=== PATIENT | female | born 1970 | race African-American/Black ===

== ENCOUNTER 2017-07-11 05:58 | Emergency (ER) | payer MEDICAID, OTHER ==
[~2017-07-11] VITALS: Ht 170.2 cm; Wt 69.9 kg
[~2017-07-11 05:58] MED LIST: ATIVAN1 MG ORAL; CIPROFLOXACIN500 M2 ORAL; LAMICTAL150 MG PO; LIBRIUM25 MG ORAL; LISINOPRIL20 MG ORAL; NORCO 5-325 TA1 EACH ORAL; NORVASC10 MG PO; OMEPRAZOLE40 M1 ORAL; ONDANSETRON ODT4 MG ORAL; PAXIL20 MG ORAL; RISPERDAL0.5 MG PO; ZOFRAN4 MG ORAL
[2017-07-11 06:00] VITALS: BP 115/72
[2017-07-11 06:27] LABS: BASOPHILS % (AUTO) 2.4 % (0.0-2.0); EOSINOPHILS % (AUTO) 3.3 % (0.0-3.0); LYMPHOCYTES % (AUTO) 20.3 % (20.0-45.0); MEAN CORPUSCULAR HEMOGLOBIN 31.9 PG (27.0-31.0); MEAN CORPUSCULAR HGB CONC 32.7 G/DL (32.0-36.0); MEAN CORPUSCULAR VOLUME 97 FL (80-99); MEAN PLATELET VOLUME 4.9 FL (6.5-10.1); MONOCYTES % (AUTO) 12.8 % (1.0-10.0); NEUTROPHILS % (AUTO) 61.1 % (45.0-75.0); PLATELET COUNT 513 K/UL (150-450); RED BLOOD COUNT 3.33 M/UL (4.20-5.40); RED CELL DISTRIBUTION WIDTH 16.9 % (11.6-14.8); WHITE BLOOD COUNT 7.6 K/UL (4.8-10.8)
[2017-07-11 06:45] LABS: ALANINE AMINOTRANSFERASE 13 U/L (3-33); ANION GAP 20 (5-15); ASPARTATE AMINO TRANSFERASE 38 U/L (5-40); CARBON DIOXIDE 22 mEQ/L (20-30); CHLORIDE 93 mEQ/L (98-107); GLOMERULAR FILTRATION RATE > 60 mL/min (>60); HEMOLYSIS 2; POTASSIUM 2.9 mEQ/L (3.4-4.9); SODIUM 135 mEQ/L (135-145)
[2017-07-11] MEDS ORDERED: Morphine Sulfate 4mg/ml Inj IVP ONE ×2 (06:45→07:45)
[2017-07-11 06:47] LABS: TROPONIN I < 0.30 ng/mL (<=0.30)
[2017-07-11 07:09] LABS: ALCOHOL 49 mg/dL; LIPASE 309 U/L (< 60)
[2017-07-11] MEDS ORDERED: Famotidine 20 MG/ 2ML VIAL IVP ONE (07:15)
[2017-07-11 08:00] VITALS: BP 119/75
--- NOTE | 2017-07-11 08:30 | Diagnostic Imaging Report ---
Clinical Indication: Abdominal pain, nausea vomiting x3 days, history of pancreatitis Technique: No oral contrast utilized, per emergency room physician request IV administration nonionic contrast. Venous phase spiral acquisition obtained through the abdomen and pelvis. Multiplanar reconstructions were generated. Total dose length product 841 mGycm. CTDIvol(s) 16 mGy. Dose reduction achieved using automated exposure control Comparison: 01/02/[address] Findings: There is mild indistinctness of the pancreatic margins and infiltration of the peripancreatic fat. Small amount of ill-defined peripancreatic fluid is seen inferior to the pancreatic tail. There is again demonstrated mild generalized atrophy of the pancreas. Of the findings are new since the previous study. No gallstones are identified. No biliary ductal dilatation. No pancreatic mass. The pancreatic substance appears to opacify normally. Some free fluid is seen adjacent to the dome of the spleen. The liver is mildly hypoattenuating, consistent with fatty change. Multiple subcentimeter low-attenuation lesions are again demonstrated. Some but not all of these are equivocally evident on a prior [address] scan. A few are equivocally evident on the more recent noncontrast study, including the largest in segment 5. The spleen, adrenals left kidney are unremarkable. The right kidney demonstrates a subcentimeter low-attenuation lower pole lesion, also evident previously, most likely benign simple cortical cyst. No pelvic mass or adenopathy. No retroperitoneal or mesenteric mass or adenopathy. Lack of enteric contrast was assessment of the GI tract. The appendix is normal. There are a few colonic diverticula. No evidence of acute diverticulitis. No small bowel distention. There is evidence of prior gastric bypass surgery again demonstrated The included lung bases are clear. The bones are unremarkable. Impression: Mild haziness of the pancreatic margins, infiltration of the peripancreatic fat, and a very small amount of free intraperitoneal fluid. Findings are consistent with acute nonnecrotizing uncomplicated pancreatitis Multiple subcentimeter low-attenuation liver lesions. Too small to characterize, most likely benign simple cysts or bile hamartomas. However, some of these may be new since previous imaging, and further imaging followup with ultrasound or MRI is warranted to establish if cystic or solid. Colonic diverticulosis. No evidence of diverticulitis Fatty liver Evidence of prior gastric bypass surgery Right lower pole renal lesion, too small to characterize, most likely benign simple cyst. No further followup necessary The CT scanner at [facility] is accredited by the [employer] and the scans are performed using protocols designed to limit radiation exposure to as low as reasonably achievable to attain images of sufficient resolution adequate for diagnostic evaluation.
[2017-07-11] MEDS ORDERED: DiphenhydrAMINE 50mg/ml Inj ONE (09:08)
[2017-07-11] MEDS ORDERED: HYDROmorphone 1mg/ml Carpuject ONE (09:08)
[2017-07-11] MEDS ORDERED: HYDROmorphone 1 MG, DiphenhydrAMINE 25 MG in NS 55 ML IV ONE (09:15)
--- NOTE | 2017-07-11 09:33 | Emergency Room Report ---
History of Present Illness General Chief Complaint: Chest Pain Source: Patient, EMS Present Illness HPI 47-year-old female presents to ED for evaluation. Per EMS patient is complaining of chest pain which started this morning. Patient states that she' s been having epigastric pain for the last 3 days with vomiting. Patient has history of pancreatitis admits to alcohol use. Pain is an 9/10, burning, radiating through her chest. Denies shortness of breath. Denies fevers or chills. No aggravating factors. Denies any other associated symptoms Allergies: Coded Allergies: ASPIRIN (Verified Adverse Reaction, Mild, ULCERS, 08/16/11) NAPROXEN (Verified Adverse Reaction, Mild, ULCERS, 05/19/12) NSAIDS (NON-STEROIDAL ANTI-INFLAMMA (Verified Adverse Reaction, Mild, ULCERS, 08/16/11) Patient History Past Medical History: HTN Past Surgical History: none Pertinent Family History: none Social History: Denies: smoking, alcohol use, drug use Last Menstrual Period: MAY 08 Now: No Immunizations: UTD Reviewed Nursing Documentation: PMH: Agreed, PSxH: Agreed Nursing Documentation-PMH Hx Cardiac Problems: No - gastric bypass, alcoholism, pancreatitis, fatty liver Hx Hypertension: Yes Review of Systems All Other Systems: negative except mentioned in HPI Physical Exam Vital Signs Date Time Temp Pulse Resp B/P (MAP) Pulse Ox O2 Delivery O2 Flow Rate FiO2 07/11/17 05:49 98.8 89 18 142/72 99 Room Air Sp02 EP Interpretation: reviewed, normal General Appearance: no apparent distress, alert, GCS 15, non-toxic Head: normocephalic, atraumatic Eyes: bilateral eye normal inspection, bilateral eye PERRL ENT: hearing grossly normal, normal pharynx, no angioedema, normal voice Neck: full range of motion, supple/symm/no masses Respiratory: chest non-tender, lungs clear, normal breath sounds, speaking full sentences Cardiovascular #1: regular rate, rhythm, no edema Cardiovascular #2: 2+ carotid (R), 2+ carotid (L), 2+ radial (R), 2+ radial (L) , 2+ dorsalis pedis (R), 2+ dorsalis pedis (L) Gastrointestinal: normal bowel sounds, soft, non-distended, no guarding, no rebound, tenderness - epigastric Rectal: deferred Genitourinary: normal inspection, no CVA tenderness Musculoskeletal: back normal, gait/station normal, normal range of motion, non- tender Neurologic: alert, oriented x3, responsive, motor strength/tone normal, sensory intact, speech normal Psychiatric: judgement/insight normal, memory normal, mood/affect normal, no suicidal/homicidal ideation Reflexes: 3+ bicep (R), 3+ bicep (L), 3+ tricep (R), 3+ tricep (L), 3+ knee (R) , 3+ knee (L) Skin: normal color, no rash, warm/dry, well hydrated Lymphatic: no adenopathy Medical Decision Making Diagnostic Impression: Primary Impression: Acute pancreatitis Qualified Codes: K85.20 - Alcohol induced acute pancreatitis without necrosis or infection Additional Impressions: Alcohol intoxication Qualified Codes: F10.920 - Alcohol use, unspecified with intoxication, uncomplicated Hypokalemia ER Course Hospital Course 47-year-old female presents to ED with abdominal pain with ovmiting Differential diagnoses include: BPH, cystitis, pyelonephritis, kidney stone Clinical course 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 After initial history and physical I ordered labs, IV fluids, UA, pain medication and CT scan Labs - no leukocytosis, Hb/Hct stable. potassium low. Lipase > 300, AST/ALT elevated. trop negative. ETOH +. utox + BZs CT abdomen and pelvis - pancreatitis EKG - NSR, no acute changes interpreted by me potassium repleted. Patient continues to have pain. Continues vomiting despite medication. Patient will require admission because of insurance patient will be transferred I feel this is a highly complex case requiring extensive working including EKG/ Rhythm strip, Xray/CT/US, Blood/urine lab work, repeat exams while in ED, and administration of strong opiates/narcotics for pain control, admission to hospital or close patient follow up. Diagnosis - acute pancreatitis, alcohol intoxication, hypolaemia Transferred in serious condition Labs Test 07/11/17 06:20 White Blood Count 7.6 K/UL (4.8-10.8) Red Blood Count 3.33 M/UL (4.20-5.40) Hemoglobin 10.6 G/DL (12.0-16.0) Hematocrit 32.5 % (37.0-47.0) Mean Corpuscular Volume 97 FL (80-99) Mean Corpuscular Hemoglobin 31.9 PG (27.0-31.0) Mean Corpuscular Hemoglobin Concent 32.7 G/DL (32.0-36.0) Red Cell Distribution Width 16.9 % (11.6-14.8) Platelet Count 513 K/UL (150-450) Mean Platelet Volume 4.9 FL (6.5-10.1) Neutrophils (%) (Auto) 61.1 % (45.0-75.0) Lymphocytes (%) (Auto) 20.3 % (20.0-45.0) Monocytes (%) (Auto) 12.8 % (1.0-10.0) Eosinophils (%) (Auto) 3.3 % (0.0-3.0) Basophils (%) (Auto) 2.4 % (0.0-2.0) Sodium Level 135 mEQ/L (135-145) Potassium Level 2.9 mEQ/L (3.4-4.9) Chloride Level 93 mEQ/L (98-107) Carbon Dioxide Level 22 mEQ/L (20-30) Anion Gap 20 (5-15) Blood Urea Nitrogen 5 mg/dL (7-23) Creatinine 1.0 mg/dL (0.5-0.9) Estimat Glomerular Filtration Rate > 60 mL/min (>60) Glucose Level 108 mg/dL (74-106) Calcium Level 9.0 mg/dL (8.6-10.2) Total Bilirubin 0.5 mg/dL (0.0-1.2) Aspartate Amino Transf (AST/SGOT) 38 U/L (5-40) Alanine Aminotransferase (ALT/SGPT) 13 U/L (3-33) Alkaline Phosphatase 89 U/L (35-104) Total Creatine Kinase 115 U/L (26-140) Creatine Kinase MB 2.0 ng/mL (< 3.8) Creatine Kinase MB Relative Index 1.7 Troponin I < 0.30 ng/mL (<=0.30) Total Protein 7.0 g/dL (6.6-8.7) Albumin 3.6 g/dL (3.5-5.2) Globulin 3.4 g/dL Albumin/Globulin Ratio 1.0 (1.0-2.7) Lipase 309 U/L (< 60) Urine Opiates Screen Negative (NEGATIVE) Urine Barbiturates Screen Negative (NEGATIVE) Phencyclidine (PCP) Screen Negative (NEGATIVE) Urine Amphetamines Screen Negative (NEGATIVE) Urine Benzodiazepines Screen Positive (NEGATIVE) Urine Cocaine Screen Negative (NEGATIVE) Urine Marijuana (THC) Screen Negative (NEGATIVE) Serum Alcohol 49 mg/dL EKG Diagnostic Results Rate: normal Rhythm: NSR ST Segments: no acute changes ASA given to the pt in ED: No Rhythm Strip Diag. Results EP Interpretation: yes Rhythm: NSR, no PVC's, no ectopy CT/MRI/US Diagnostic Results CT/MRI/US Diagnostic Results : Imaging Test Ordered: CT A/P Impression acute pancreatitis Last Vital Signs Date Time Temp Pulse Resp B/P (MAP) Pulse Ox O2 Delivery O2 Flow Rate FiO2 07/11/17 08:22 98.2 07/11/17 06:00 89 14 Room Air 07/11/17 06:00 115/72 99 Status: improved Disposition: XFER [facility] Condition: Serious Referrals: [facility] (PCP) CRISTINA JOVEL M.D. Jul 11, 2017 09:33
[2017-07-11] MEDS ORDERED: Dicyclomine HCl 10mg/5ml oral soln ORAL ONE (09:45)
[2017-07-11] MEDS ORDERED: Lidocaine 2% Visc 15ml soln ORAL ONE (09:45)
[2017-07-11] MEDS ORDERED: Mylanta II UD 30ml ORAL ONE (09:45)
[2017-07-11 10:14] VITALS: BP 126/76
[2017-07-11 11:10] VITALS: BP 126/76
--- NOTE | 2017-07-11 12:38 | Diagnostic Imaging Report ---
Indication: PAIN Technique: One view of the chest Comparison: 02/21/2015 Findings: Lungs and pleural spaces are clear. Heart size is normal. No significant change Impression: No acute process
== END 2017-07-11 11:10 | disposition short-term general hospital (02) ==
LOC: EDBD 05:58 → EMR 06:30
DX: K85.20 Alcohol induced acute pancreatitis without necrosis or infection (principal); F10.920 Alcohol use, unspecified with intoxication, uncomplicated; E87.6 Hypokalemia; I10 Essential (primary) hypertension; Z98.84 Bariatric surgery status; Z88.6 Allergy status to analgesic agent
CPT/HCPCS: 36415; 71010; 74177; 80053; 80300; 80329; 82550; 82553; 83690; 84484; 85025; 93005; 96374; 96375; 99285; J1170; J1200; J2270; J2405; Q9967; S0028; J8499

== ENCOUNTER 2018-10-15 10:33 | Emergency (ER) | payer MEDICAID ==
[~2018-10-15] VITALS: Ht 167.6 cm; Wt 63.5 kg
[2018-10-15 10:40] VITALS: BP 172/99
--- NOTE | 2018-10-15 11:03 | Emergency Room Report ---
History of Present Illness General Chief Complaint: Alcohol Intoxication Source: Patient Present Illness HPI Patient is a 48-year-old female who presented after increased abdominal discomfort and vomiting. Patient reports having recent heavy alcohol use. She reports having prior history of chronic pain. Patient states that she been taking Percocet for pain and had recently taken 5 of those as well as a recent epidural. Reports an prior history of ulcer disease but denies any bleeding. She states that she is an alcoholic.The patient reports having multiple episodes of vomiting and generalized body discomfort. Allergies: Coded Allergies: ASPIRIN (Verified Adverse Reaction, Mild, ULCERS, 08/16/11) NAPROXEN (Verified Adverse Reaction, Mild, ULCERS, 05/19/12) NSAIDS (NON-STEROIDAL ANTI-INFLAMMA (Verified Adverse Reaction, Mild, ULCERS, 08/16/11) Patient History Past Medical History: see triage record Reviewed Nursing Documentation: PMH: Agreed; PSxH: Agreed Nursing Documentation-PM Past Medical History: No History, Except For Hx Cardiac Problems: No - gastric bypass, alcoholism, pancreatitis, fatty liver Hx Hypertension: Yes Review of Systems All Other Systems: negative except mentioned in HPI Physical Exam Vital Signs Date Time Temp Pulse Resp B/P (MAP) Pulse Ox O2 Delivery O2 Flow Rate FiO2 10/15/18 10:40 73 15 Room Air 10/15/18 10:40 98.9 172/99 100 Sp02 EP Interpretation: reviewed, normal General Appearance: normal inspection, well appearing, no apparent distress, alert, GCS 15, Chronically Ill Head: atraumatic ENT: normal ENT inspection, hearing grossly normal, normal voice Neck: normal inspection, full range of motion, supple, no bony tend Respiratory: normal inspection, lungs clear, normal breath sounds, no respiratory distress, no retraction, no wheezing Cardiovascular #1: regular rate, rhythm, no edema Gastrointestinal: normal inspection, normal bowel sounds, non tender, soft, no guarding, no hernia Genitourinary: no CVA tenderness Musculoskeletal: normal inspection, back normal, normal range of motion Neurologic: normal inspection, alert, oriented x3, responsive, attending psychiatrist III-XII nml as tested, speech normal Psychiatric: normal inspection, judgement/insight normal, mood/affect normal Skin: normal inspection, normal color, no rash Medical Decision Making Diagnostic Impression: Primary Impression: Alcohol intoxication ER Course Patient presented for abdominal pain. Differential diagnoses included ischemic bowel, appendicitis, perforated viscus, abdominal aortic aneurysm, inferior myocardial infarction, viral gastroenteritis. Because of complexity of patient' s case laboratory testing and imaging studies were ordered. The patient's laboratory testing was notable for markedly elevated lactic acid level. Patient reports having recently been drinking multiple 40 ounce beers. The patient states that she has prior history of ulcer disease. The patient was given IV fluids as well as IV the acid blockers and antiemetics. The patient was noted to have elevated lactic acid level. The patient stated she felt better and wanted to leave. The patient was advised risk benefits alternatives of leaving AGAINST MEDICAL ADVICE and he indicated understanding and all questions are answered patient still continued want to leave and signed AGAINST MEDICAL ADVICE. Despite risks including but not limited to disability and worsening of current lifestyle. Labs Test 10/15/18 11:16 10/15/18 11:53 10/15/18 12:03 White Blood Count 7.8 K/UL (4.8-10.8) Red Blood Count 5.10 M/UL (4.20-5.40) Hemoglobin 15.7 G/DL (12.0-16.0) Hematocrit 46.0 % (37.0-47.0) Mean Corpuscular Volume 90 FL (80-99) Mean Corpuscular Hemoglobin 30.8 PG (27.0-31.0) Mean Corpuscular Hemoglobin Concent 34.2 G/DL (32.0-36.0) Red Cell Distribution Width 12.8 % (11.6-14.8) Platelet Count 552 K/UL (150-450) Mean Platelet Volume 5.3 FL (6.5-10.1) Neutrophils (%) (Auto) 81.5 % (45.0-75.0) Lymphocytes (%) (Auto) 14.8 % (20.0-45.0) Monocytes (%) (Auto) 3.2 % (1.0-10.0) Eosinophils (%) (Auto) 0.0 % (0.0-3.0) Basophils (%) (Auto) 0.5 % (0.0-2.0) Sodium Level 132 MMOL/L (136-145) Potassium Level 3.2 MMOL/L (3.5-5.1) Chloride Level 92 MMOL/L (98-107) Carbon Dioxide Level 24 MMOL/L (21-32) Anion Gap 16 mmol/L (5-15) Blood Urea Nitrogen 12 mg/dL (7-18) Creatinine 0.9 MG/DL (0.55-1.30) Estimat Glomerular Filtration Rate > 60 mL/min (>60) Glucose Level 106 MG/DL (74-106) Calcium Level 9.4 MG/DL (8.5-10.1) Total Bilirubin 1.2 MG/DL (0.2-1.0) Direct Bilirubin 0.3 MG/DL (0.0-0.3) Aspartate Amino Transf (AST/SGOT) 99 U/L (15-37) Alanine Aminotransferase (ALT/SGPT) 52 U/L (12-78) Alkaline Phosphatase 134 U/L (46-116) Troponin I 0.000 ng/mL (0.000-0.056) Total Protein 9.9 G/DL (6.4-8.2) Albumin 4.3 G/DL (3.4-5.0) Globulin 5.6 g/dL Albumin/Globulin Ratio 0.8 (1.0-2.7) Lipase 138 U/L (73-393) Urine Color Pale yellow Urine Appearance Clear Urine pH 6.5 (4.5-8.0) Urine Specific [place] 1.005 (1.005-1.035) Urine Protein 1+ (NEGATIVE) Urine Glucose (UA) Negative (NEGATIVE) Urine Ketones Negative (NEGATIVE) Urine Blood Negative (NEGATIVE) Urine Nitrite Negative (NEGATIVE) Urine Bilirubin Negative (NEGATIVE) Urine Urobilinogen Normal MG/DL (0.0-1.0) Urine Leukocyte Esterase Negative (NEGATIVE) Urine RBC 0 /HPF (0 - 2) Urine WBC 0-2 /HPF (0 - 2) Urine Squamous Epithelial Cells Few /LPF (NONE/OCC) Urine Bacteria Few /HPF (NONE) Lactic Acid Level 6.80 mmol/L (0.4-2.0) Last Vital Signs Date Time Temp Pulse Resp B/P (MAP) Pulse Ox O2 Delivery O2 Flow Rate FiO2 10/15/18 10:42 98.1 78 18 164/78 98 Room Air Status: improved Disposition: AGAINST MEDICAL ADVICE Condition: Serious Scripts Ondansetron* (ZOFRAN*) 4 Mg Tablet 4 MG ORAL Q6H PRN for Nausea & Vomiting, #20 TAB Prov: Raffi Falk MD 10/15/18 Raffi Falk MD Oct 15, 2018 11:03
[2018-10-15 11:32] LABS: BASOPHILS % (AUTO) 0.5 % (0.0-2.0); HEMOGLOBIN 15.7 G/DL (12.0-16.0); LYMPHOCYTES % (AUTO) 14.8 % (20.0-45.0); MEAN CORPUSCULAR VOLUME 90 FL (80-99); MONOCYTES % (AUTO) 3.2 % (1.0-10.0); NEUTROPHILS % (AUTO) 81.5 % (45.0-75.0); PLATELET COUNT 552 K/UL (150-450); RED CELL DISTRIBUTION WIDTH 12.8 % (11.6-14.8); WHITE BLOOD COUNT 7.8 K/UL (4.8-10.8)
[2018-10-15 11:52] LABS: ANION GAP 16 mmol/L (5-15); BLOOD UREA NITROGEN 12 mg/dL (7-18); CALCIUM 9.4 MG/DL (8.5-10.1); CARBON DIOXIDE 24 MMOL/L (21-32); CHLORIDE 92 MMOL/L (98-107); CREATININE 0.9 MG/DL (0.55-1.30); POTASSIUM 3.2 MMOL/L (3.5-5.1); SODIUM 132 MMOL/L (136-145)
[2018-10-15 12:02] LABS: APPEARANCE,URINE CLEAR; BILIRUBIN, URINE NEGATIVE (NEGATIVE); COLOR,URINE PALE YELLOW; GLUCOSE, URINE (UA) NEGATIVE (NEGATIVE); KETONES,URINE NEGATIVE (NEGATIVE); LEUKOCYTE ESTERASE ,URINE NEGATIVE (NEGATIVE); NITRITE,URINE NEGATIVE (NEGATIVE); PH,URINE 6.5 (4.5-8.0); PROTEIN,URINE 1+ (NEGATIVE); UROBILINOGEN,URINE NORMAL MG/DL (0.0-1.0)
[2018-10-15 12:03] LABS: ALANINE AMINOTRANSFERASE 52 U/L (12-78); ALBUMIN 4.3 G/DL (3.4-5.0); ALBUMIN/GLOBULIN RATIO 0.8 (1.0-2.7); ALKALINE PHOSPHATASE 134 U/L (46-116); ASPARTATE AMINO TRANSFERASE 99 U/L (15-37); BILIRUBIN,TOTAL 1.2 MG/DL (0.2-1.0)
[2018-10-15 12:11] LABS: BILIRUBIN,DIRECT 0.3 MG/DL (0.0-0.3)
[2018-10-15] MEDS ORDERED: Metoclopramide 10mg/2ml Inj IVP ONE (12:15)
[2018-10-15 12:30] VITALS: BP 162/90
[2018-10-15] MEDS ORDERED: ZOFRAN4 M3 ORAL (13:21)
[2018-10-15 14:10] VITALS: BP 162/90
== END 2018-10-15 14:10 | disposition home or self-care (01) ==
LOC: EDBD 10:33 → EMR 11:52
DX: F10.129 Alcohol abuse with intoxication, unspecified (principal); Z88.6 Allergy status to analgesic agent; I10 Essential (primary) hypertension; Z98.84 Bariatric surgery status
CPT/HCPCS: 36415; 80053; 81001; 82248; 83605; 83690; 84484; 85025; 96361; 96374; 96375; 99284; J2405; J2765

== ENCOUNTER 2020-02-13 07:14 | Inpatient (IN) | payer MEDICAID ==
[~2020-02-13] VITALS: Ht 167.6 cm; Wt 81.6 kg
[~2020-02-13 07:14] MED LIST changes: +ZOFRAN4 M3 ORAL
--- NOTE | 2020-02-13 07:15 | NUR ---
ED Nurse Note: Pt was BIBA from home d/t LT lower abdominal pain with 10/10 pain scale started today at 0300. Pt is AOx4, NKA, noted with consistent restlessness and screaming of pain. Per pt, she has hx of pancreatitis; fatty liver and ulcers. 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 Placed on bed and gown; hooked to monitor technician. IV establsihed by second RN; specimen collected, hydration started on IV line, patent and infusing well. Latest BP: 125/87. Meds given. Safety assured; will continue to monitor.
[2020-02-13 07:16] VITALS: BP 87/62
--- NOTE | 2020-02-13 07:25 | Emergency Room Report ---
History of Present Illness General Chief Complaint: Abdominal Pain Source: Patient Present Illness HPI Patient is a 49-year-old female who presents after increased left-sided abdominal pain. Reports having history of gastric bypass as well as alcohol abuse. She states she quit drinking 2 days ago. Reports having increased dark stools. Previous history of ulcer disease. She states that she had no vomiting. Reports having increased left-sided epigastric pain. Reports having recent fever. Denies any cough. Denies any shortness of breath. Reports having previously been diagnosed with fatty liver but had not known varices. Previous endoscopy did show ulcer per report. Allergies: Coded Allergies: IBUPROFEN (Unverified Allergy, Unknown, 02/13/20) ASPIRIN (Verified Adverse Reaction, Mild, ULCERS, 08/16/11) NAPROXEN (Verified Adverse Reaction, Mild, ULCERS, 05/19/12) NSAIDS (NON-STEROIDAL ANTI-INFLAMMA (Verified Adverse Reaction, Mild, ULCERS, 08/16/11) COVID-19 Screening Contact w/high risk pt: No Recent Travel to affected area: No Experienced COVID-19 symptoms?: Yes COVID-19 symptoms experienced: Fever (T>100.4F or >38C) Patient History Past Medical History: see triage record Last Menstrual Period: n/a Reviewed Nursing Documentation: PMH: Agreed; PSxH: Agreed Nursing Documentation-PMH Past Medical History: No History, Except For Hx Cardiac Problems: No - gastric bypass, alcoholism, pancreatitis, fatty liver Hx Hypertension: Yes Review of Systems All Other Systems: negative except mentioned in HPI Physical Exam Vital Signs Date Time Temp Pulse Resp B/P (MAP) Pulse Ox O2 Delivery O2 Flow Rate FiO2 02/13/20 07:09 98.6 130 18 87/62 (70) 100 Room Air Sp02 EP Interpretation: reviewed, normal General Appearance: normal inspection, alert, GCS 15, mild distress, Chronically Ill Head: atraumatic ENT: normal ENT inspection, hearing grossly normal, normal voice Neck: normal inspection, full range of motion, supple, no bony tend Respiratory: normal inspection, lungs clear, normal breath sounds, no respiratory distress, no retraction, no wheezing Cardiovascular #1: regular rate, rhythm, no edema Gastrointestinal: normal inspection, normal bowel sounds, non tender, soft, no guarding, no hernia Genitourinary: no CVA tenderness Musculoskeletal: normal inspection, back normal, normal range of motion Neurologic: alert, motor strength/tone normal, preschool assistant III-XII nml as tested, oriented x3, responsive, speech normal, normal inspection Psychiatric: normal inspection, judgement/insight normal, mood/affect normal Skin: no rash Medical Decision Making Diagnostic Impression: Primary Impression: Abdominal pain Additional Impression: Splenic rupture ER Course Patient presented for abdominal pain. Differential diagnoses included ischemic bowel, appendicitis, perforated viscus, abdominal aortic aneurysm, inferior myocardial infarction, viral gastroenteritis among others.Because patient's complexity imaging studies, and laboratory testing ordered. Laboratory testing showed . Electrolytes were unremarkable. Liver function tests are noted to be markedly abnormal with markedly elevated AST and ALT. Lipase was normal White blood count was minimally elevated. Patient was noted to be lymphopenic. CT of the abdomen pelvis showed: Heterogeneous spleen with some surrounding hemoperitoneum consistent with possible splenic rupture. Some groundglass opacities were noted. Dr. Cross was contacted for surgical consult. Patient be admitted to hospital for further evaluation and treatment of splenic rupture. Patient was discussed with from [facility] case #[id number] Labs Test 02/13/20 07:10 White Blood Count 12.2 K/UL (4.8-10.8) Red Blood Count 3.54 M/UL (4.20-5.40) Hemoglobin 11.5 G/DL (12.0-16.0) Hematocrit 33.6 % (37.0-47.0) Mean Corpuscular Volume 95 FL (80-99) Mean Corpuscular Hemoglobin 32.4 PG (27.0-31.0) Mean Corpuscular Hemoglobin Concent 34.2 G/DL (32.0-36.0) Red Cell Distribution Width 13.1 % (11.6-14.8) Platelet Count 358 K/UL (150-450) Mean Platelet Volume 5.3 FL (6.5-10.1) Neutrophils (%) (Auto) % (45.0-75.0) Lymphocytes (%) (Auto) % (20.0-45.0) Monocytes (%) (Auto) % (1.0-10.0) Eosinophils (%) (Auto) % (0.0-3.0) Basophils (%) (Auto) % (0.0-2.0) Differential Total Cells Counted 100 Neutrophils % (Manual) 86 % (45-75) Lymphocytes % (Manual) 12 % (20-45) Monocytes % (Manual) 2 % (1-10) Eosinophils % (Manual) 0 % (0-3) Basophils % (Manual) 0 % (0-2) Band Neutrophils 0 % (0-8) Platelet Estimate Adequate Platelet Morphology Normal Red Blood Cell Morphology Normal Prothrombin Time 10.0 SEC (9.30-11.50) Prothromb Time International Ratio 0.9 (0.9-1.1) Activated Partial Thromboplast Time 32 SEC (23-33) Sodium Level 131 MMOL/L (136-145) Potassium Level 4.0 MMOL/L (3.5-5.1) Chloride Level 94 MMOL/L (98-107) Carbon Dioxide Level 23 MMOL/L (21-32) Anion Gap 15 mmol/L (5-15) Blood Urea Nitrogen 15 mg/dL (7-18) Creatinine 1.6 MG/DL (0.55-1.30) Estimat Glomerular Filtration Rate 41.3 mL/min (>60) Glucose Level 240 MG/DL (74-106) Calcium Level 9.2 MG/DL (8.5-10.1) Total Bilirubin 1.9 MG/DL (0.2-1.0) Direct Bilirubin 0.8 MG/DL (0.0-0.3) Aspartate Amino Transf (AST/SGOT) 124 U/L (15-37) Alanine Aminotransferase (ALT/SGPT) 117 U/L (12-78) Alkaline Phosphatase 158 U/L (46-116) Troponin I 0.000 ng/mL (0.000-0.056) Total Protein 7.8 G/DL (6.4-8.2) Albumin 3.5 G/DL (3.4-5.0) Globulin 4.3 g/dL Albumin/Globulin Ratio 0.8 (1.0-2.7) Lipase 93 U/L (73-393) Human Chorionic Gonadotropin, Quant 1 mIU/mL (1-6) Serum Alcohol < 3 mg/dL EKG Diagnostic Results Rate: normal Rhythm: NSR ST Segments: no acute changes Last Vital Signs Date Time Temp Pulse Resp B/P (MAP) Pulse Ox O2 Delivery O2 Flow Rate FiO2 02/13/20 07:09 98.6 130 18 87/62 (70) 100 Room Air Status: unchanged Disposition: ADMITTED INPATIENT Condition: Serious Raffi Falk MD Feb 13, 2020 07:25
[2020-02-13] MEDS ORDERED: Morphine Sulfate 4mg/ml Inj (IV USE ONLY) IVP ONE ×3 (07:30→13:00)
[2020-02-13] MEDS ORDERED: Pantoprazole Inj IV ONE (07:30)
[2020-02-13] MEDS ORDERED: LORazepam Inj 2mg/ml 1ml IV ONE (07:30)
[2020-02-13] MEDS ORDERED: Omnipaque-300 100ml vial INJ PRN (07:30)
[2020-02-13 07:37] LABS: HEMATOCRIT 33.6 % (37.0-47.0); HEMOGLOBIN 11.5 G/DL (12.0-16.0); MEAN CORPUSCULAR VOLUME 95 FL (80-99); PLATELET COUNT 358 K/UL (150-450); RED BLOOD COUNT 3.54 M/UL (4.20-5.40); RED CELL DISTRIBUTION WIDTH 13.1 % (11.6-14.8); WHITE BLOOD COUNT 12.2 K/UL (4.8-10.8)
[2020-02-13 07:44] LABS: INR 0.9 (0.9-1.1)
[2020-02-13 08:06] LABS: ANION GAP 15 mmol/L (5-15); BLOOD UREA NITROGEN 15 mg/dL (7-18); CALCIUM 9.2 MG/DL (8.5-10.1); CARBON DIOXIDE 23 MMOL/L (21-32); CHLORIDE 94 MMOL/L (98-107); CREATININE 1.6 MG/DL (0.55-1.30); SODIUM 131 MMOL/L (136-145)
--- NOTE | 2020-02-13 08:13 | NUR ---
ED Nurse Note: Pt on bed, still verbalizes pain; unable to collect urine specimen at this time.
[2020-02-13 08:16] LABS: ALANINE AMINOTRANSFERASE 117 U/L (12-78); ALBUMIN 3.5 G/DL (3.4-5.0); ALBUMIN/GLOBULIN RATIO 0.8 (1.0-2.7); ALKALINE PHOSPHATASE 158 U/L (46-116); ASPARTATE AMINO TRANSFERASE 124 U/L (15-37); BILIRUBIN,TOTAL 1.9 MG/DL (0.2-1.0)
[2020-02-13 08:22] LABS: BILIRUBIN,DIRECT 0.8 MG/DL (0.0-0.3)
--- NOTE | 2020-02-13 08:35 | NUR ---
ED Nurse Note: pt went to ct via kapil accompanied by tech
--- NOTE | 2020-02-13 08:52 | NUR ---
ED Nurse Note: pt returned from ct, on stable condition; nad.
--- NOTE | 2020-02-13 09:28 | Diagnostic Imaging Report ---
Clinical Indication: Increased left-sided abdominal pain, history of gastric bypass Technique: No oral contrast utilized, per emergency room physician request IV administration nonionic contrast. Venous phase spiral acquisition obtained through the abdomen and pelvis. Multiplanar reconstructions were generated. Total dose length product 425 mGycm. CTDIvol(s) 7.8 mGy. Dose reduction achieved using automated exposure control Comparison: 07/11/2017 Findings: The spleen is markedly abnormal. The normally enhancing spleen demonstrates distortion of the anatomy and is surrounded by a large area of mixed attenuation which measures approximately 9 x 7 x 9.5 cm. High attenuation fluid is also seen within the left paracolic gutter as well as is under the left hemidiaphragm and adjacent to the left hepatic lobe. A small sliver of high attenuation fluid is also seen over the dome of the right hepatic lobe and there is a moderate amount of the same in the pelvis.. There is some infiltration of the left upper quadrant retroperitoneal and omental fat. The enhancing portion of the spleen for the most part enhances normally, although there is some heterogeneity to the enhancement of the lower pole. This is a new finding. Previously the spleen was normal in size, attenuation, and enhancement. The splenic vein is diffusely small in caliber, and patency near the hilum is uncertain. Previously this was larger in caliber. The previously demonstrated acute pancreatitis changes have resolved. The liver is mildly enlarged and is hypoattenuating. Again demonstrated are a few subcentimeter low-attenuation lesions which are too small to characterize. These are somewhat less apparent than on the prior study. The gallbladder is mildly distended. No biliary ductal dilatation. The pancreas is atrophic and contains numerous calcifications. The kidneys are unremarkable. No retroperitoneal or mesenteric mass or adenopathy. No pelvic mass or adenopathy. The appendix is normal. There is colonic diverticulosis. No evidence of acute diverticulitis. No small bowel distention. No free or loculated intraperitoneal gas or fluid is evident. There is evidence of prior gastric bypass surgery. The lung bases demonstrate mosaic perfusion which is not evident on the prior exam, and there is borderline groundglass opacity in the left costophrenic sulcus. The bones are unremarkable. Impression: Markedly abnormal spleen, surrounded by 9 x 7 x 9.5 cm area of mixed attenuation, as well as high attenuation fluid, presumably blood, within the peritoneal space. Findings most likely represent splenic rupture with large subcapsular hematoma and associated hemoperitoneum. Note also uncertain patency of the splenic vein near the hilum as well as evidence of a few small splenic hilar varices. This is new since the previous study Previously reported acute pancreatitis changes have resolved. There is now pancreatic atrophy and extensive calcification which is a new finding and presumably a sequela of the previously demonstrated acute pancreatitis Enlarged fatty liver, also previously described Mosaic perfusion at the lung bases with some borderline groundglass opacity in the left costophrenic sulcus. Findings are nonspecific, most likely represent dependent atelectatic changes but other etiologies also possible. Colonic diverticulosis. No evidence of acute diverticulitis Findings discussed by phone with Dr. Falk in the emergency room at the time of interpretation The CT scanner at [facility] is accredited by the [employer] and the scans are performed using protocols designed to limit radiation exposure to as low as reasonably achievable to attain images of sufficient resolution adequate for diagnostic evaluation.
[2020-02-13 09:40] VITALS: BP 146/99
--- NOTE | 2020-02-13 09:40 | NUR ---
ED Nurse Note: Pt was transferred from bed 4 to OB room on stabled condition. droplet isolation initiated.
--- NOTE | 2020-02-13 09:55 | NUR ---
ED Nurse Note: Obtained urine specimen; sent to labs.
[2020-02-13 10:25] LABS: APPEARANCE,URINE CLEAR; BILIRUBIN, URINE NEGATIVE (NEGATIVE); COLOR,URINE PALE YELLOW; GLUCOSE, URINE (UA) NEGATIVE (NEGATIVE); KETONES,URINE NEGATIVE (NEGATIVE); LEUKOCYTE ESTERASE ,URINE 1+ (NEGATIVE); NITRITE,URINE NEGATIVE (NEGATIVE); PH,URINE 6 (4.5-8.0); PROTEIN,URINE 1+ (NEGATIVE); UROBILINOGEN,URINE NORMAL MG/DL (0.0-1.0)
--- NOTE | 2020-02-13 10:30 | NUR ---
NURSE NOTES: INFORMED DOCTOR JACKELINE OF HGB OF 8.5- ORDERED 2 UNITS PRBCS.
--- NOTE | 2020-02-13 10:45 | NUR ---
ED Nurse Note: Received report from JONNA Padilla. Patient awake AAO x4, c/o pain 9/10, asking for more pain medication.
--- NOTE | 2020-02-13 11:30 | NUR ---
ED Nurse Note: Per Dr. Falk started Sodium Chloride 1000 mL at rate 999mL/hr.
[2020-02-13 11:35] VITALS: BP 144/98
--- NOTE | 2020-02-13 13:16 | Consultation ---
History of Present Illness General Date patient seen: Feb 13, 2020 Reason for Hospitalization: Abdominal Pain Present Illness HPI 49 year old female with history of gastric bypass, EtOH abuse / addiction for 15 years drinking daily, narcotic pain medication abuse presented to [facility] ED with c/o pain generalized abdomen, "all over" and left shoulder. states onset two days ago and worsening. states usually buys oxycontin on the streets but could not get any for the past two days and last use Wednesday. states drinks daily but stopped two days ago as well. noted to have darker than usual stool. no n/v/f/c. leukocytosis. anemia. CT as below. surgery called to evaluate. patient seen in ED, chart reviewed, patient examined. Allergies: Coded Allergies: IBUPROFEN (Unverified Allergy, Unknown, 02/13/20) ASPIRIN (Verified Adverse Reaction, Mild, ULCERS, 08/16/11) NAPROXEN (Verified Adverse Reaction, Mild, ULCERS, 05/19/12) NSAIDS (NON-STEROIDAL ANTI-INFLAMMA (Verified Adverse Reaction, Mild, ULCERS, 08/16/11) COVID-19 Screening Contact w/high risk pt: No Recent Travel to affected area: No Experienced COVID-19 symptoms?: Yes COVID-19 symptoms experienced: Fever (T>100.4F or >38C) Medication History Scheduled Lisinopril (Lisinopril*), 20 MG ORAL DAILY, (Reported) Paroxetine Hcl* (Paxil*), 20 MG ORAL DAILY, (Reported) Scheduled PRN Ondansetron (Zofran), 4 MG ORAL TID PRN for Nausea & Vomiting Ondansetron* (Zofran*), 4 MG ORAL Q6H PRN for Nausea & Vomiting Patient History History Provided By: Patient, Medical Record, PMD Healthcare decision maker Resuscitation status Advanced Directive on File Past Medical/Surgical History Past Medical/Surgical History: (1) pancreatitis (2) UTI (urinary tract infection) (3) Chest pain (4) Anxiety (5) Hypokalemia (6) Chest pain (7) Anemia (8) Hypokalemia (9) Acute pancreatitis (10) Anxiety (11) Alcohol withdrawal (12) Anxiety (13) Ovarian cyst (14) Abdominal pain (15) Ovarian cyst (16) Nausea (17) Alcohol intoxication (18) Chest pain (19) Acute pancreatitis (20) Hypokalemia (21) Alcohol intoxication (22) Splenic rupture (23) Abdominal pain Review of Systems Review of Symptoms General ROS: no weight loss or fever Psychological ROS: no depression or mood changes, no memory loss Ophthalmic ROS: no visual changes or eye irritation ENT ROS: no nasal congestion, hearing loss, dizziness Allergy and Immunology ROS: no allergic symptoms or urticaria Hematological and Lymphatic ROS: no swollen glands, unusual bleeding or bruising Endocrine ROS: no polyuria, polydipsia, weight changes, temperature intolerance Respiratory ROS: no cough, shortness of breath, or wheezing Cardiovascular ROS: no chest pain or dyspnea on exertion Gastrointestinal ROS: abdominal pain, bright red blood in stool. Musculoskeletal ROS: no myalgias or arthralgias Neurological ROS: no TIA or stroke symptoms Dermatological ROS: no new or changing skin lesions, rashes or pruritis Physical Exam Physical Exam General appearance: alert, cooperative, no distress, appears stated age Head: Normocephalic, without obvious abnormality, atraumatic Eyes: conjunctivae/corneas clear. PERRL, EOM's intact. Fundi benign Throat: Lips, mucosa, and tongue normal. Teeth and gums normal Neck: supple, symmetrical, trachea midline, no adenopathy, thyroid: not enlarged, symmetric, no tenderness/mass/nodules, no carotid bruit and no JVD Lungs: clear to auscultation bilaterally Heart: regular rate and rhythm, S1, S2 normal, no murmur, click, rub or gallop Abdomen: soft, general-tender but no peritonitis. no rebound. voluntary guarding. Bowel sounds normal. No masses, no organomegaly Extremities: extremities normal, atraumatic, no cyanosis or edema Pulses: 2+ and symmetric Skin: Skin color, texture, turgor normal. No rashes or lesions Neurologic: Grossly normal Last 24 Hour Vital Signs Date Time Temp Pulse Resp B/P (MAP) Pulse Ox O2 Delivery O2 Flow Rate FiO2 02/13/20 11:07 98.6 02/13/20 09:40 98.6 92 18 146/99 100 Room Air 02/13/20 08:06 98.6 02/13/20 07:16 95 18 Room Air 02/13/20 07:16 98.6 18 87/62 100 Room Air 02/13/20 07:09 98.6 130 18 87/62 (70) 100 Room Air Laboratory Tests Test 02/13/20 07:10 02/13/20 09:55 White Blood Count 12.2 K/UL (4.8-10.8) H Red Blood Count 3.54 M/UL (4.20-5.40) L Hemoglobin 11.5 G/DL (12.0-16.0) L Hematocrit 33.6 % (37.0-47.0) L Mean Corpuscular Volume 95 FL (80-99) Mean Corpuscular Hemoglobin 32.4 PG (27.0-31.0) H Mean Corpuscular Hemoglobin Concent 34.2 G/DL (32.0-36.0) Red Cell Distribution Width 13.1 % (11.6-14.8) Platelet Count 358 K/UL (150-450) Mean Platelet Volume 5.3 FL (6.5-10.1) L Neutrophils (%) (Auto) % (45.0-75.0) Lymphocytes (%) (Auto) % (20.0-45.0) Monocytes (%) (Auto) % (1.0-10.0) Eosinophils (%) (Auto) % (0.0-3.0) Basophils (%) (Auto) % (0.0-2.0) Differential Total Cells Counted 100 Neutrophils % (Manual) 86 % (45-75) H Lymphocytes % (Manual) 12 % (20-45) L Monocytes % (Manual) 2 % (1-10) Eosinophils % (Manual) 0 % (0-3) Basophils % (Manual) 0 % (0-2) Band Neutrophils 0 % (0-8) Platelet Estimate Adequate Platelet Morphology Normal Red Blood Cell Morphology Normal Prothrombin Time 10.0 SEC (9.30-11.50) Prothromb Time International Ratio 0.9 (0.9-1.1) Activated Partial Thromboplast Time 32 SEC (23-33) Sodium Level 131 MMOL/L (136-145) L Potassium Level 4.0 MMOL/L (3.5-5.1) Chloride Level 94 MMOL/L (98-107) L Carbon Dioxide Level 23 MMOL/L (21-32) Anion Gap 15 mmol/L (5-15) Blood Urea Nitrogen 15 mg/dL (7-18) Creatinine 1.6 MG/DL (0.55-1.30) H Estimat Glomerular Filtration Rate 41.3 mL/min (>60) Glucose Level 240 MG/DL (74-106) H Calcium Level 9.2 MG/DL (8.5-10.1) Total Bilirubin 1.9 MG/DL (0.2-1.0) H Direct Bilirubin 0.8 MG/DL (0.0-0.3) H Aspartate Amino Transf (AST/SGOT) 124 U/L (15-37) H Alanine Aminotransferase (ALT/SGPT) 117 U/L (12-78) H Alkaline Phosphatase 158 U/L (46-116) H Troponin I 0.000 ng/mL (0.000-0.056) Total Protein 7.8 G/DL (6.4-8.2) Albumin 3.5 G/DL (3.4-5.0) Globulin 4.3 g/dL Albumin/Globulin Ratio 0.8 (1.0-2.7) L Lipase 93 U/L (73-393) Human Chorionic Gonadotropin, Quant 1 mIU/mL (1-6) Serum Alcohol < 3 mg/dL Urine Color Pale yellow Urine Appearance Clear Urine pH 6 (4.5-8.0) Urine Specific [place] 1.010 (1.005-1.035) Urine Protein 1+ (NEGATIVE) H Urine Glucose (UA) Negative (NEGATIVE) Urine Ketones Negative (NEGATIVE) Urine Blood Negative (NEGATIVE) Urine Nitrite Negative (NEGATIVE) Urine Bilirubin Negative (NEGATIVE) Urine Urobilinogen Normal MG/DL (0.0-1.0) Urine Leukocyte Esterase 1+ (NEGATIVE) H Urine RBC 2-4 /HPF (0 - 2) H Urine WBC 2-4 /HPF (0 - 2) Urine Squamous Epithelial Cells Occasional /LPF Urine Bacteria Occasional /HPF (NONE) Height (Feet): 5 Height (Inches): 6.00 Weight (Pounds): 160 Medications Current Medications Medications (Trade) Dose Ordered Sig/Celia Route PRN Reason Start Time Stop Time Status Last Admin Dose Admin Iohexol (OMNIPAQUE-300 100ml) 100 ml NOW PRN INJ Radiology Procedure 02/13/20 07:30 02/15/20 07:23 Sodium Chloride 1,000 ml @ 999 mls/hr Q1H1M ONCE IV 02/13/20 13:15 02/13/20 14:15 Assessment/Plan Problem List: (1) Splenic rupture Assessment & Plan: The spleen is markedly abnormal. The normally enhancing spleen demonstrates distortion of the anatomy and is surrounded by a large area of mixed attenuation which measures approximately 9 x 7 x 9.5 cm. High attenuation fluid is also seen within the left paracolic gutter as well as is under the left hemidiaphragm and adjacent to the left hepatic lobe. A small sliver of high attenuation fluid is also seen over the dome of the right hepatic lobe and there is a moderate amount of the same in the pelvis.. There is some infiltration of the left upper quadrant retroperitoneal and omental fat. The enhancing portion of the spleen for the most part enhances normally, although there is some heterogeneity to the enhancement of the lower pole. This is a new finding. Previously the spleen was normal in size, attenuation, and enhancement. The splenic vein is diffusely small in caliber, and patency near the hilum is uncertain. Previously this was larger in caliber. The previously demonstrated acute pancreatitis changes have resolved. The liver is mildly enlarged and is hypoattenuating. Again demonstrated are a few subcentimeter low-attenuation lesions which are too small to characterize. These are somewhat less apparent than on the prior study. The gallbladder is mildly distended. No biliary ductal dilatation. The pancreas is atrophic and contains numerous calcifications. The kidneys are unremarkable. No retroperitoneal or mesenteric mass or adenopathy. No pelvic mass or adenopathy. The appendix is normal. There is colonic diverticulosis. No evidence of acute diverticulitis. No small bowel distention. No free or loculated intraperitoneal gas or fluid is evident. There is evidence of prior gastric bypass surgery. The lung bases demonstrate mosaic perfusion which is not evident on the prior exam, and there is borderline groundglass opacity in the left costophrenic sulcus. The bones are unremarkable. Impression: Markedly abnormal spleen, surrounded by 9 x 7 x 9.5 cm area of mixed attenuation, as well as high attenuation fluid, presumably blood, within the peritoneal space. Findings most likely represent splenic rupture with large subcapsular hematoma and associated hemoperitoneum. Note also uncertain patency of the splenic vein near the hilum as well as evidence of a few small splenic hilar varices. This is new since the previous study Previously reported acute pancreatitis changes have resolved. There is now pancreatic atrophy and extensive calcification which is a new finding and presumably a sequela of the previously demonstrated acute pancreatitis Enlarged fatty liver, also previously described Mosaic perfusion at the lung bases with some borderline groundglass opacity in the left costophrenic sulcus. Findings are nonspecific, most likely represent dependent atelectatic changes but other etiologies also possible. Colonic diverticulosis. No evidence of acute diverticulitis ICD Codes: S36.09XA - Other injury of spleen, initial encounter SNOMED: 463636719 (2) Abdominal pain Assessment & Plan: abdominal pain for [address] with possible splenic ruptures anemia leukocytosis no active extravasation noted HD stable exam with discomfort but no peritonitis will need to monitor closely admit for monitoring npo iv fluids tend h/h abd exams t/s prbc discussed with patient. if h/h drops, worsening pain, deterioration will need to proceed to OR for exploration otherwise will monitor closely with resuscitation thank you will follow with recs ICD Codes: R10.9 - Unspecified abdominal pain SNOMED: [id number] Jason Cross Feb 13, 2020 13:16
[2020-02-13] MEDS ORDERED: DiphenhydrAMINE 25mg Tab ORAL PRN (13:30)
[2020-02-13] MEDS ORDERED: Nitroglycerin Subl 0.4mg tab SL PRN (13:30)
[2020-02-13] MEDS ORDERED: Metoclopramide 10mg/2ml Inj IVP PRN (13:30)
[2020-02-13] MEDS ORDERED: Miralax 17gm pkt ORAL PRN (13:30)
[2020-02-13] MEDS ORDERED: Pantoprazole Inj IV SCH (13:30)
[2020-02-13] MEDS ORDERED: Morphine Sulfate 2mg/ml Inj(IV/IM USE ONLY) IVP PRN (13:30)
--- NOTE | 2020-02-13 13:31 | NUR ---
ED Nurse Note: Patient resting comfortably in the bed with eyes close, VSS at this time.
[2020-02-13] MEDS: Pantoprazole Inj IV SCH (15:14)
[2020-02-13] MEDS: Piperacillin/Tazobactam 3.375 GM in NS 110 ML IVPB SCH ×2 (15:14→23:15)
[2020-02-13] MEDS: D5 1/2NS 1,000 ML IV SCH (16:26)
[2020-02-13] MEDS: Morphine Sulfate 4mg/ml Inj (IV USE ONLY) IVP PRN ×2 (18:41→23:35)
--- NOTE | 2020-02-13 18:48 | NUR ---
ED Nurse Note: Report given to JONNA Tovar. patient will be transported to telemetry floor accompanied by dental laboratory technology teacher and RN.
[2020-02-13 18:55] VITALS: BP 150/94
--- NOTE | 2020-02-13 18:55 | NUR ---
ED Nurse Note: Patient was admited to TELE unit due to spleen ruptured. Patient was transfered to the unit via gurney, by ACLS protocol, with all belongings. Patient AAO x4, VSS at this time.
--- NOTE | 2020-02-13 19:30 | NUR ---
NURSE NOTES: RECEIVED REPORT FROM JONNA PLAZA. PATIENT AWAKE IN BED, ABLE TO MAKE NEEDS KNOWN. NO COMPLAINTS OF PAIN OR DISCOMFORT AT THIS TIME. BREATHING IS EVEN AND UNLABORED ON ROOM AIR. IV SITE ON LAC ASYMPTOMATIC, PATENT AND INTACT. BELONGINGS LIST GONE OVER WITH PATIENT. PATIENT PLACED ON GLAZIER STRUCTURAL GLASS. BED LOCKED AND IN LOWEST POSITION. SIDERAILS UP X 2. CALL LIGHT WITHIN REACH. WILL CONTINUE TO MONITOR.
--- NOTE | 2020-02-13 19:33 | NUR ---
NURSE NOTES: Report received from Ovidio COYLE. Patient is transferred via gurney from ER to rehabilitation counselor. Patient is observed in bed, awake, alert, oriented, and able to make needs known. Respiratory even and unlabored. IV site is asymptomatic, patent, and intact. desk monitor initiated. Report given to Valerie COYLE.
[2020-02-13 20:00] VITALS: BP 109/73
[2020-02-13] MEDS: Heparin 5000 units/ml inj SUBQ SCH (21:00)
[2020-02-13 21:51] LABS: BASOPHILS % (AUTO) 0.6 % (0.0-2.0); EOSINOPHILS % (AUTO) 0.2 % (0.0-3.0); HEMATOCRIT 26.1 % (37.0-47.0); HEMOGLOBIN 8.5 G/DL (12.0-16.0); LYMPHOCYTES % (AUTO) 11.4 % (20.0-45.0); MEAN CORPUSCULAR VOLUME 101 FL (80-99); NEUTROPHILS % (AUTO) 76.8 % (45.0-75.0); PLATELET COUNT 290 K/UL (150-450); RED BLOOD COUNT 2.59 M/UL (4.20-5.40); WHITE BLOOD COUNT 10.6 K/UL (4.8-10.8)
[2020-02-14] MEDS: D5 1/2NS 1,000 ML IV SCH (02:30)
[2020-02-14 04:00] VITALS: BP 117/82
[2020-02-14] MEDS: Morphine Sulfate 4mg/ml Inj (IV USE ONLY) IVP PRN ×4 (04:05→21:29)
--- NOTE | 2020-02-14 04:20 | NUR ---
NURSE NOTES: PER PATIENT, PERSONS TO NOTIFY/EMERGENCY CONTACTS ARE: KANDACE DECKER [phone] (FRIEND) CLYDE CARVER [phone] (SON)
--- NOTE | 2020-02-14 07:00 | NUR ---
NURSE NOTES: S/P BLOOD TRANSFUSION OF 1 UNIT PRBCS. VITAL SIGNS WITHIN NORMAL LIMITS. NO S/SX OF ADVERSE REACTION NOTED. CALLED TWAN AT PHARMACY TO INFORM HER THAT SCHEDULED ZOSYN FOR 0600 COULD NOT BE ADMINISTERED BECAUSE PATIENT WAS RECEIVING BLOOD TRANSFUSION AT THE TIME. PER TWAN, SHE WILL RE-TIME IT FOR WHEN THE SECOND ORDERED UNIT IS COMPLETED.
--- NOTE | 2020-02-14 07:30 | NUR ---
NURSE NOTES: Received patient from Serge Espinal Patient is awake and alert. NO complain of pain or discomfort at this time. Patient on droplet isolation pending Covid swab result. VSS. patient to receive second unit of PRBC today. Will continue plan of care.
--- NOTE | 2020-02-14 07:35 | NUR ---
HAND-OFF: Report given to JONNA ROJAS. PLAN OF CARE ENDORSED.
[2020-02-14 08:00] VITALS: BP 121/81
[2020-02-14 08:05] LABS: INR 0.9 (0.9-1.1)
[2020-02-14 08:09] LABS: ALANINE AMINOTRANSFERASE 71 U/L (12-78); ALBUMIN 2.7 G/DL (3.4-5.0); ALBUMIN/GLOBULIN RATIO 0.7 (1.0-2.7); ALKALINE PHOSPHATASE 106 U/L (46-116); AMYLASE 42 U/L (25-115); ANION GAP 7 mmol/L (5-15); ASPARTATE AMINO TRANSFERASE 60 U/L (15-37); BILIRUBIN,TOTAL 1.5 MG/DL (0.2-1.0); BLOOD UREA NITROGEN 13 mg/dL (7-18); CALCIUM 8.7 MG/DL (8.5-10.1); CARBON DIOXIDE 25 MMOL/L (21-32); CHLORIDE 103 MMOL/L (98-107); CHOLESTEROL 131 MG/DL (< 200); HDL CHOLESTEROL 82 MG/DL (40-60); POTASSIUM 3.6 MMOL/L (3.5-5.1); SODIUM 135 MMOL/L (136-145); TRIGLYCERIDES 43 MG/DL (30-150)
[2020-02-14 08:10] LABS: BILIRUBIN,DIRECT 0.6 MG/DL (0.0-0.3)
[2020-02-14] MEDS: Pantoprazole Inj IV SCH (08:20)
[2020-02-14] MEDS: Morphine Sulfate 2mg/ml Inj(IV/IM USE ONLY) IVP PRN (08:21)
--- NOTE | 2020-02-14 08:28 | NUR ---
CASE MANAGEMENT:REVIEW 49 YR OLD FEMALE BEBO FROM HOME CC: ABDOMINAL PAIN PMH: PANCREATITIS. FATTY LIVER. ULCERS SI: SPLENIC RUPTURE 98.6 130 18 87/62 100% ON RA WBC+12.2 IS: IV PROTONIX 1L NS BOLUS IV ATIVAN IV MORPHINE X2 CT ABD/PELVIS : TO TELEMETRY PLAN: SURGICAL CONSULT FAXED REVIEW AND CLINICALS TO [facility]....WAITING FOR THEM TO RESPOND Addendum: 02/14/20 at 0840 by RAEGAN MILAN LVN LVN R/O COVID 19....[facility] ISOLATION
--- NOTE | 2020-02-14 08:37 | NUR ---
INSURANCE FAXED ALL CLINICALS AND REVIEW TO [facility] T: [phone] F: [phone] AUTH# [id number]
[2020-02-14] MEDS ORDERED: Pantoprazole Inj IV SCH (09:00)
[2020-02-14] MEDS: Heparin 5000 units/ml inj SUBQ SCH (09:00)
[2020-02-14] MEDS: Piperacillin/Tazobactam 3.375 GM in NS 110 ML IVPB SCH ×2 (10:00→17:56)
[2020-02-14 10:26] LABS: BASOPHILS % (AUTO) 0.7 % (0.0-2.0); EOSINOPHILS % (AUTO) 0.7 % (0.0-3.0); HEMATOCRIT 27.2 % (37.0-47.0); HEMOGLOBIN 9.2 G/DL (12.0-16.0); LYMPHOCYTES % (AUTO) 12.8 % (20.0-45.0); MEAN CORPUSCULAR VOLUME 96 FL (80-99); MONOCYTES % (AUTO) 13.5 % (1.0-10.0); NEUTROPHILS % (AUTO) 72.4 % (45.0-75.0); PLATELET COUNT 260 K/UL (150-450); RED BLOOD COUNT 2.84 M/UL (4.20-5.40); RED CELL DISTRIBUTION WIDTH 14.1 % (11.6-14.8); WHITE BLOOD COUNT 10.3 K/UL (4.8-10.8)
--- NOTE | 2020-02-14 10:39 | NUR ---
NURSE NOTES: unable to administer zosyn at 1000. Patient receiving blood. Tara of pharmacy made aware
[2020-02-14 12:00] VITALS: BP 148/86
--- NOTE | 2020-02-14 12:09 | Consultation ---
History of Present Illness General Date patient seen: Feb 14, 2020 Chief Complaint: Abdominal Pain Present Illness HPI 49-year-old female with history of gastric bypass, alcohol abuse, PUD, fatty liver presented to ER with CC of increased left-sided abdominal pain and dark stools but no vomiting. Reports having increased left-sided epigastric pain. Reports having recent fever. Allergies: Coded Allergies: IBUPROFEN (Unverified Allergy, Unknown, 02/13/20) ASPIRIN (Verified Adverse Reaction, Mild, ULCERS, 08/16/11) NAPROXEN (Verified Adverse Reaction, Mild, ULCERS, 05/19/12) NSAIDS (NON-STEROIDAL ANTI-INFLAMMA (Verified Adverse Reaction, Mild, ULCERS, 08/16/11) Medication History Scheduled Lisinopril (Lisinopril*), 20 MG ORAL DAILY, (Reported) Paroxetine Hcl* (Paxil*), 20 MG ORAL DAILY, (Reported) Scheduled PRN Ondansetron (Zofran), 4 MG ORAL TID PRN for Nausea & Vomiting Ondansetron* (Zofran*), 4 MG ORAL Q6H PRN for Nausea & Vomiting Patient History Healthcare decision maker Resuscitation status Full Code Advanced Directive on File Past Medical/Surgical History Past Medical/Surgical History: (1) PUD (peptic ulcer disease) (2) ETOH abuse (3) History of gastric bypass Review of Systems Gastrointestinal: Reports: melena All Other Systems: negative except mentioned in HPI Physical Exam General Appearance: WD/WN HEENT: normocephalic, anicteric Neck: non-tender, supple Respiratory/Chest: chest wall non-tender, lungs clear Breasts: no masses Cardiovascular/Chest: normal rate Abdomen: normal bowel sounds, non tender Genitourinary/Rectal: normal genital exam Extremities: normal range of motion Skin Exam: normal pigmentation Neurologic: steam conditioner filling II-XII grossly normal Last 24 Hour Vital Signs Date Time Temp Pulse Resp B/P (MAP) Pulse Ox O2 Delivery O2 Flow Rate FiO2 02/14/20 09:00 Room Air 02/14/20 08:00 81 02/14/20 08:00 98.1 88 18 121/81 (94) 100 02/14/20 05:02 99.3 02/14/20 04:00 90 02/14/20 04:00 99.0 89 20 117/82 (94) 99 02/14/20 00:37 105 4/8/20 00:00 106 02/13/20 20:00 99.3 108 20 109/73 (85) 99 02/13/20 20:00 111 02/13/20 20:00 Room Air 02/13/20 18:55 98.6 96 20 150/94 100 Room Air 02/13/20 18:55 98.6 96 20 150/94 100 Room Air 02/13/20 15:45 98.6 Intake and Output 02/13/20 02/14/20 19:00 07:00 Intake Total 250 ml Balance 250 ml Intake Blood Product 250 ml # Voids 3 2 Laboratory Tests Test 02/13/20 21:30 02/14/20 06:09 02/14/20 09:43 White Blood Count 10.6 K/UL (4.8-10.8) 10.3 K/UL (4.8-10.8) Red Blood Count 2.59 M/UL (4.20-5.40) L 2.84 M/UL (4.20-5.40) L Hemoglobin 8.5 G/DL (12.0-16.0) L 9.2 G/DL (12.0-16.0) L Hematocrit 26.1 % (37.0-47.0) L 27.2 % (37.0-47.0) L Mean Corpuscular Volume 101 FL (80-99) H 96 FL (80-99) Mean Corpuscular Hemoglobin 32.7 PG (27.0-31.0) H 32.3 PG (27.0-31.0) H Mean Corpuscular Hemoglobin Concent 32.4 G/DL (32.0-36.0) 33.7 G/DL (32.0-36.0) Red Cell Distribution Width 15.0 % (11.6-14.8) H 14.1 % (11.6-14.8) Platelet Count 290 K/UL (150-450) 260 K/UL (150-450) Mean Platelet Volume 6.2 FL (6.5-10.1) L 5.5 FL (6.5-10.1) L Neutrophils (%) (Auto) 76.8 % (45.0-75.0) H 72.4 % (45.0-75.0) Lymphocytes (%) (Auto) 11.4 % (20.0-45.0) L 12.8 % (20.0-45.0) L Monocytes (%) (Auto) 11.0 % (1.0-10.0) H 13.5 % (1.0-10.0) H Eosinophils (%) (Auto) 0.2 % (0.0-3.0) 0.7 % (0.0-3.0) Basophils (%) (Auto) 0.6 % (0.0-2.0) 0.7 % (0.0-2.0) Prothrombin Time 9.9 SEC (9.30-11.50) Prothromb Time International Ratio 0.9 (0.9-1.1) Activated Partial Thromboplast Time 35 SEC (23-33) H Sodium Level 135 MMOL/L (136-145) L Potassium Level 3.6 MMOL/L (3.5-5.1) Chloride Level 103 MMOL/L (98-107) Carbon Dioxide Level 25 MMOL/L (21-32) Anion Gap 7 mmol/L (5-15) Blood Urea Nitrogen 13 mg/dL (7-18) Creatinine 1.0 MG/DL (0.55-1.30) Estimat Glomerular Filtration Rate > 60 mL/min (>60) Glucose Level 101 MG/DL (74-106) # Hemoglobin A1c 5.7 % (4.3-6.0) Lactic Acid Level 0.70 mmol/L (0.4-2.0) Calcium Level 8.7 MG/DL (8.5-10.1) Total Bilirubin 1.5 MG/DL (0.2-1.0) H Direct Bilirubin 0.6 MG/DL (0.0-0.3) H Aspartate Amino Transf (AST/SGOT) 60 U/L (15-37) H Alanine Aminotransferase (ALT/SGPT) 71 U/L (12-78) Alkaline Phosphatase 106 U/L (46-116) C-Reactive Protein, Quantitative 16.1 mg/dL (0.00-0.90) H Pro-B-Type Natriuretic Peptide 66 pg/mL (0-125) Total Protein 6.5 G/DL (6.4-8.2) Albumin 2.7 G/DL (3.4-5.0) L Globulin 3.8 g/dL Albumin/Globulin Ratio 0.7 (1.0-2.7) L Triglycerides Level 43 MG/DL (30-150) Cholesterol Level 131 MG/DL (< 200) LDL Cholesterol 20 mg/dL (<100) HDL Cholesterol 82 MG/DL (40-60) H Cholesterol/HDL Ratio 1.6 (3.3-4.4) L Amylase Level 42 U/L (25-115) Lipase 88 U/L (73-393) Thyroid Stimulating Hormone (TSH) 2.457 uiU/mL (0.358-3.740) Height (Feet): 5 Height (Inches): 6.00 Weight (Pounds): 180 Medications Current Medications Medications (Trade) Dose Ordered Sig/Celia Route PRN Reason Start Time Stop Time Status Last Admin Dose Admin Acetaminophen (Tylenol) 650 mg Q4H PRN ORAL fever 02/13/20 13:30 03/14/20 13:29 Dextrose (Dextrose 50%) 25 ml Q30M PRN IV Hypoglycemia 02/13/20 13:30 05/13/20 13:29 Dextrose (Dextrose 50%) 50 ml Q30M PRN IV Hypoglycemia 02/13/20 13:30 05/13/20 13:29 Dextrose/ Electrolytes 1,000 ml @ 100 mls/hr Q10H IV 02/14/20 10:30 03/15/20 10:29 Diphenhydramine HCl (Benadryl) 25 mg Q6H PRN ORAL Itching/Pruritis 02/13/20 13:30 03/14/20 13:29 Heparin Sodium (Porcine) (Heparin 5000 units/ml) 5,000 units EVERY 12 HOURS SUBQ 02/13/20 21:00 03/29/20 20:59 Iohexol (OMNIPAQUE-300 100ml) 100 ml NOW PRN INJ Radiology Procedure 02/13/20 07:30 02/15/20 07:23 Lorazepam (Ativan 2mg/ml 1ml) 0.5 mg Q4H PRN IV For Anxiety 02/13/20 13:30 02/20/20 13:29 Metoclopramide HCl (Reglan) 10 mg Q6H PRN IVP servere nauasea 02/13/20 13:30 03/14/20 13:29 Morphine Sulfate (Morphine Sulfate) 1 mg EVERY 4 HOURS PRN IVP Mild Pain (Pain Scale 1-3) 02/13/20 13:30 02/20/20 13:29 Morphine Sulfate (Morphine Sulfate) 2 mg EVERY 4 HOURS PRN IVP Moderate Pain (Pain Scale 4-6) 02/13/20 13:30 02/20/20 13:29 02/14/20 08:21 Morphine Sulfate (Morphine Sulfate) 4 mg EVERY 4 HOURS PRN IVP Severe Pain (Pain Scale 7-10) 02/13/20 13:30 02/20/20 13:29 02/14/20 04:05 Nitroglycerin (Ntg) 0.4 mg Q5M X 3 DOSES PRN SL Prn Chest Pain 02/13/20 13:30 03/14/20 13:29 Ondansetron HCl (Zofran) 4 mg Q6H PRN IVP Nausea & Vomiting 02/13/20 13:30 03/14/20 13:29 Pantoprazole (Protonix) 40 mg DAILY IV 02/13/20 14:56 03/14/20 14:55 02/14/20 08:20 Piperacillin Sod/ Tazobactam Sod 3.375 gm/Sodium Chloride 110 ml @ 27.5 mls/hr Q8H IVPB 02/14/20 10:00 02/21/20 09:59 Polyethylene Glycol (Miralax) 17 gm HSPRN PRN ORAL Constipation 02/13/20 13:30 03/14/20 13:29 Promethazine HCl (Phenergan) 25 mg Q6H PRN IM Refractory N/V 02/13/20 13:30 03/14/20 13:29 Temazepam (Restoril) 15 mg HSPRN PRN ORAL Insomnia 02/13/20 13:30 02/20/20 13:29 Assessment/Plan Problem List: (1) Intractable abdominal pain ICD Codes: R10.9 - Unspecified abdominal pain SNOMED: 34981036 (2) Splenic rupture ICD Codes: S36.09XA - Other injury of spleen, initial encounter SNOMED: 856999005 (3) PUD (peptic ulcer disease) ICD Codes: K27.9 - Peptic ulcer, site unspecified, unspecified as acute or chronic, without hemorrhage or perforation SNOMED: 08344433 (4) History of gastric bypass ICD Codes: Z98.84 - Bariatric surgery status SNOMED: 900544852 (5) ETOH abuse ICD Codes: F10.10 - Alcohol abuse, uncomplicated SNOMED: 73352002 Assessment/Plan: npo iv fluids GI and surgery f/u prbc prn symptomatic treatment morphine prn Cuate Goel MD Feb 14, 2020 12:09
--- NOTE | 2020-02-14 12:51 | History & Physical ---
History and Physical History & Physicial Dictated for Int Med-Dr Richards no. [id number]. Ford Sevilla MD Feb 14, 2020 12:51
--- NOTE | 2020-02-14 13:15 | General Progress Note ---
Assessment/Plan Problem List: (1) Fatty liver ICD Codes: K76.0 - Fatty (change of) liver, not elsewhere classified SNOMED: 428267328 (2) Elevated LFTs ICD Codes: R79.89 - Other specified abnormal findings of blood chemistry SNOMED: 618138165, 339879941 (3) Diverticulosis ICD Codes: K57.90 - Diverticulosis of intestine, part unspecified, without perforation or abscess without bleeding SNOMED: 776544835 (4) Anemia ICD Codes: D64.9 - Anemia, unspecified SNOMED: 789924452 (5) h/o panceatitis (6) History of gastric bypass ICD Codes: Z98.84 - Bariatric surgery status SNOMED: 091480698 (7) ETOH abuse ICD Codes: F10.10 - Alcohol abuse, uncomplicated SNOMED: 72196996 (8) Ovarian cyst ICD Codes: N83.20 - Unspecified ovarian cysts SNOMED: 05477411 (9) Alcohol intoxication ICD Codes: F10.129 - Alcoholabuse with intoxication, unspecified SNOMED: 82111266 (10) Abdominal pain ICD Codes: R10.9 - Unspecified abdominal pain SNOMED: 47631025 (11) Splenic rupture ICD Codes: S36.09XA - Other injury of spleen, initial encounter SNOMED: 427683259 Assessment/Plan: d/w surg keep NPO for one more day ppi fu H&H prn blood transfusion fu labs banana bag monitor for W/D will start Creon when patient on oral diet Subjective ROS Limited/Unobtainable: Yes Allergies: Coded Allergies: IBUPROFEN (Unverified Allergy, Unknown, 02/13/20) ASPIRIN (Verified Adverse Reaction, Mild, ULCERS, 08/16/11) NAPROXEN (Verified Adverse Reaction, Mild, ULCERS, 05/19/12) NSAIDS (NON-STEROIDAL ANTI-INFLAMMA (Verified Adverse Reaction, Mild, ULCERS, 08/16/11) Objective Last 24 Hour Vital Signs Date Time Temp Pulse Resp B/P (MAP) Pulse Ox O2 Delivery O2 Flow Rate FiO2 02/14/20 12:00 98.6 86 20 148/86 (106) 100 02/14/20 09:00 Room Air 02/14/20 08:00 81 02/14/20 08:00 98.1 88 18 121/81 (94) 100 02/14/20 05:02 99.3 02/14/20 04:00 90 02/14/20 04:00 99.0 89 20 117/82 (94) 99 02/14/20 00:37 105 02/14/20 00:00 106 02/13/20 20:00 99.3 108 20 109/73 (85) 99 02/13/20 20:00 111 02/13/20 20:00 Room Air 02/13/20 18:55 98.6 96 20 150/94 100 Room Air 02/13/20 18:55 98.6 96 20 150/94 100 Room Air 02/13/20 15:45 98.6 Intake and Output 02/13/20 02/14/20 19:00 07:00 Intake Total 250 ml Balance 250 ml Intake Blood Product 250 ml # Voids 3 2 Laboratory Tests 02/13/20 21:30: White Blood Count 10.6, Red Blood Count 2.59L, Hemoglobin 8.5L, Hematocrit 26.1L , Mean Corpuscular Volume 101H, Mean Corpuscular Hemoglobin 32.7H, Mean Corpuscular Hemoglobin Concent 32.4, Red Cell Distribution Width 15.0H, Platelet Count 290, Mean Platelet Volume 6.2L, Neutrophils (%) (Auto) 76.8H, Lymphocytes (%) (Auto) 11.4L, Monocytes (%) (Auto) 11.0H, Eosinophils (%) (Auto ) 0.2, Basophils (%) (Auto) 0.6 02/14/20 06:09: Prothrombin Time 9.9, Prothromb Time International Ratio 0.9, Activated Partial Thromboplast Time 35H, Sodium Level 135L, Potassium Level 3.6, Chloride Level 103, Carbon Dioxide Level 25, Anion Gap 7, Blood Urea Nitrogen 13, Creatinine 1.0, Estimat Glomerular Filtration Rate > 60, Glucose Level 101#, Hemoglobin A1c 5.7, Lactic Acid Level 0.70, Calcium Level 8.7, Total Bilirubin 1.5H, Direct Bilirubin 0.6H, Aspartate Amino Transf (AST/SGOT) 60H, Alanine Aminotransferase (ALT/SGPT) 71, Alkaline Phosphatase 106, C-Reactive Protein, Quantitative 16.1H, Pro-B-Type Natriuretic Peptide 66, Total Protein 6.5, Albumin 2.7L, Globulin 3.8, Albumin/Globulin Ratio 0.7L, Triglycerides Level 43 , Cholesterol Level 131, LDL Cholesterol 20, HDL Cholesterol 82H, Cholesterol/ HDL Ratio 1.6L, Amylase Level 42, Lipase 88, Thyroid Stimulating Hormone (TSH) 2.457 02/14/20 09:43: White Blood Count 10.3, Red Blood Count 2.84L, Hemoglobin 9.2L, Hematocrit 27.2L , Mean Corpuscular Volume 96, Mean Corpuscular Hemoglobin 32.3H, Mean Corpuscular Hemoglobin Concent 33.7, Red Cell Distribution Width 14.1, Platelet Count 260, Mean Platelet Volume 5.5L, Neutrophils (%) (Auto) 72.4, Lymphocytes ( %) (Auto) 12.8L, Monocytes (%) (Auto) 13.5H, Eosinophils (%) (Auto) 0.7, Basophils (%) (Auto) 0.7 Height (Feet): 5 Height (Inches): 6.00 Weight (Pounds): 180 General Appearance: alert EENT: PERRL/EOMI Neck: supple Cardiovascular: normal rate Respiratory/Chest: decreased breath sounds Abdomen: soft, hypoactive bowel sounds, tender Extremities: non-tender Valerio Elias MD Feb 14, 2020 13:15
--- NOTE | 2020-02-14 13:30 | NUR ---
NURSE NOTES: PAtient S/P 2nd unit of PRBC. No adverse reactions noted. VSS. Will follow
--- NOTE | 2020-02-14 13:38 | Surgery Progress Note ---
Surgery Progress Note Subjective Symptoms: improved, pain same, passing flatus Additional Comments h/h drop but now stable given prbc states feels better overall but still with abd pain not worse no n/v/f/c Objective Last 24 Hour Vital Signs Date Time Temp Pulse Resp B/P (MAP) Pulse Ox O2 Delivery O2 Flow Rate FiO2 02/14/20 12:00 98.6 86 20 148/86 (106) 100 02/14/20 09:00 Room Air 02/14/20 08:00 81 02/14/20 08:00 98.1 88 18 121/81 (94) 100 02/14/20 05:02 99.3 02/14/20 04:00 90 02/14/20 04:00 99.0 89 20 117/82 (94) 99 02/14/20 00:37 105 02/14/20 00:00 106 02/13/20 20:00 99.3 108 20 109/73 (85) 99 02/13/20 20:00 111 02/13/20 20:00 Room Air 02/13/20 18:55 98.6 96 20 150/94 100 Room Air 02/13/20 18:55 98.6 96 20 150/94 100 Room Air 02/13/20 15:45 98.6 I&O Intake and Output 02/13/20 02/14/20 19:00 07:00 Intake Total 250 ml Balance 250 ml Intake Blood Product 250 ml # Voids 3 2 Cardiovascular: RSR Respiratory: clear Abdomen: soft, tenderness - less , present bowel sounds, non-distended Extremities: no edema, no tenderness, no cyanosis Laboratory Tests Test 02/13/20 21:30 02/14/20 06:09 02/14/20 09:43 White Blood Count 10.6 K/UL (4.8-10.8) 10.3 K/UL (4.8-10.8) Red Blood Count 2.59 M/UL (4.20-5.40) L 2.84 M/UL (4.20-5.40) L Hemoglobin 8.5 G/DL (12.0-16.0) L 9.2 G/DL (12.0-16.0) L Hematocrit 26.1 % (37.0-47.0) L 27.2 % (37.0-47.0) L Mean Corpuscular Volume 101 FL (80-99) H 96 FL (80-99) Mean Corpuscular Hemoglobin 32.7 PG (27.0-31.0) H 32.3 PG (27.0-31.0) H Mean Corpuscular Hemoglobin Concent 32.4 G/DL (32.0-36.0) 33.7 G/DL (32.0-36.0) Red Cell Distribution Width 15.0 % (11.6-14.8) H 14.1 % (11.6-14.8) Platelet Count 290 K/UL (150-450) 260 K/UL (150-450) Mean Platelet Volume 6.2 FL (6.5-10.1) L 5.5 FL (6.5-10.1) L Neutrophils (%) (Auto) 76.8 % (45.0-75.0) H 72.4 % (45.0-75.0) Lymphocytes (%) (Auto) 11.4 % (20.0-45.0) L 12.8 % (20.0-45.0) L Monocytes (%) (Auto) 11.0 % (1.0-10.0) H 13.5 % (1.0-10.0) H Eosinophils (%) (Auto) 0.2 % (0.0-3.0) 0.7 % (0.0-3.0) Basophils (%) (Auto) 0.6 % (0.0-2.0) 0.7 % (0.0-2.0) Prothrombin Time 9.9 SEC (9.30-11.50) Prothromb Time International Ratio 0.9 (0.9-1.1) Activated Partial Thromboplast Time 35 SEC (23-33) H Sodium Level 135 MMOL/L (136-145) L Potassium Level 3.6 MMOL/L (3.5-5.1) Chloride Level 103 MMOL/L (98-107) Carbon Dioxide Level 25 MMOL/L (21-32) Anion Gap 7 mmol/L (5-15) Blood Urea Nitrogen 13 mg/dL (7-18) Creatinine 1.0 MG/DL (0.55-1.30) Estimat Glomerular Filtration Rate > 60 mL/min (>60) Glucose Level 101 MG/DL (74-106) # Hemoglobin A1c 5.7 % (4.3-6.0) Lactic Acid Level 0.70 mmol/L (0.4-2.0) Calcium Level 8.7 MG/DL (8.5-10.1) Total Bilirubin 1.5 MG/DL (0.2-1.0) H Direct Bilirubin 0.6 MG/DL (0.0-0.3) H Aspartate Amino Transf (AST/SGOT) 60 U/L (15-37) H Alanine Aminotransferase (ALT/SGPT) 71 U/L (12-78) Alkaline Phosphatase 106 U/L (46-116) C-Reactive Protein, Quantitative 16.1 mg/dL (0.00-0.90) H Pro-B-Type Natriuretic Peptide 66 pg/mL (0-125) Total Protein 6.5 G/DL (6.4-8.2) Albumin 2.7 G/DL (3.4-5.0) L Globulin 3.8 g/dL Albumin/Globulin Ratio 0.7 (1.0-2.7) L Triglycerides Level 43 MG/DL (30-150) Cholesterol Level 131 MG/DL (< 200) LDL Cholesterol 20 mg/dL (<100) HDL Cholesterol 82 MG/DL (40-60) H Cholesterol/HDL Ratio 1.6 (3.3-4.4) L Amylase Level 42 U/L (25-115) Lipase 88 U/L (73-393) Thyroid Stimulating Hormone (TSH) 2.457 uiU/mL (0.358-3.740) Plan Problems: (1) Splenic rupture Assessment & Plan: The spleen is markedly abnormal. The normally enhancing spleen demonstrates distortion of the anatomy and is surrounded by a large area of mixed attenuation which measures approximately 9 x 7 x 9.5 cm. High attenuation fluid is also seen within the left paracolic gutter as well as is under the left hemidiaphragm and adjacent to the left hepatic lobe. A small sliver of high attenuation fluid is also seen over the dome of the right hepatic lobe and there is a moderate amount of the same in the pelvis.. There is some infiltration of the left upper quadrant retroperitoneal and omental fat. The enhancing portion of the spleen for the most part enhances normally, although there is some heterogeneity to the enhancement of the lower pole. This is a new finding. Previously the spleen was normal in size, attenuation, and enhancement. The splenic vein is diffusely small in caliber, and patency near the hilum is uncertain. Previously this was larger in caliber. The previously demonstrated acute pancreatitis changes have resolved. The liver is mildly enlarged and is hypoattenuating. Again demonstrated are a few subcentimeter low-attenuation lesions which are too small to characterize. These are somewhat less apparent than on the prior study. The gallbladder is mildly distended. No biliary ductal dilatation. The pancreas is atrophic and contains numerous calcifications. The kidneys are unremarkable. No retroperitoneal or mesenteric mass or adenopathy. No pelvic mass or adenopathy. The appendix is normal. There is colonic diverticulosis. No evidence of acute diverticulitis. No small bowel distention. No free or loculated intraperitoneal gas or fluid is evident. There is evidence of prior gastric bypass surgery. The lung bases demonstrate mosaic perfusion which is not evident on the prior exam, and there is borderline groundglass opacity in the left costophrenic sulcus. The bones are unremarkable. Impression: Markedly abnormal spleen, surrounded by 9 x 7 x 9.5 cm area of mixed attenuation, as well as high attenuation fluid, presumably blood, within the peritoneal space. Findings most likely represent splenic rupture with large subcapsular hematoma and associated hemoperitoneum. Note also uncertain patency of the splenic vein near the hilum as well as evidence of a few small splenic hilar varices. This is new since the previous study Previously reported acute pancreatitis changes have resolved. There is now pancreatic atrophy and extensive calcification which is a new finding and presumably a sequela of the previously demonstrated acute pancreatitis Enlarged fatty liver, also previously described Mosaic perfusion at the lung bases with some borderline groundglass opacity in the left costophrenic sulcus. Findings are nonspecific, most likely represent dependent atelectatic changes but other etiologies also possible. Colonic diverticulosis. No evidence of acute diverticulitis (2) Abdominal pain Assessment & Plan: abdominal pain for [address] with possible splenic ruptures anemia leukocytosis no active extravasation noted HD stable exam with discomfort but no peritonitis will need to monitor closely admit for monitoring npo iv fluids tend h/h abd exams t/s prbc discussed with patient. if h/h drops, worsening pain, deterioration will need to proceed to OR for exploration otherwise will monitor closely with resuscitation stable trend h/h hold surgical intervention states feeling better will monitor closely thank you will follow with Jason Polk Feb 14, 2020 13:38
--- NOTE | 2020-02-14 13:53 | NUR ---
TRANSFER UPDATE THIS IS A [facility] PATIENT THAT BELONGS AT [facility] CALLED [facility] T: [phone] AND SPOKE WITH CHESTER BRIGGS CONFIRMED THEY RECEIVED CLINICALS THAT WERE FAXED EARLIER PER [facility] WE NEED TO CALL BACK ONCE COVID 19 IS RESULTED. THEY WILL NOT TRANSPORT AT THIS TIME WE WILL NEED A "STABLE TO TRANSFER" ORDER ONCE COVID RESULTED
[2020-02-14] MEDS ORDERED: Folic Acid 1 MG, Magnesium Sulfate 2,000 MG, Multivitamin - 12 Injection 10 ML, Thiamin... IV SCH ×5 (14:30)
[2020-02-14] MEDS: Folic Acid 1 MG, Magnesium Sulfate 2,000 MG, Multivitamin - 12 Injection 10 ML in Sodiu... IV SCH (15:30)
[2020-02-14] MEDS: Thiamine 100mg in D5W 55ml IVPB SCH (15:30)
[2020-02-14 16:00] VITALS: BP 135/88
--- NOTE | 2020-02-14 19:00 | History and Physical Report ---
DATE OF ADMISSION: 02/13/2020 CHIEF COMPLAINT: Patient is a 49-year-old female, who presents with a chief complaint of abdominal pain. HISTORY OF PRESENT ILLNESS: Patient has a history of alcohol abuse for 15 years. Patient states she binge drinks. Patient binges for approximately 1 week at a time and then has some abstinence. Patient states history of present illness began on 02/10/2020. Patient stopped drinking on Wednesday. Patient began to experience a dull ache in her left upper quadrant of her abdomen. Patient was brought in with pancreatitis secondary to her binge drinking. Patient states pain worsened on 02/12/2020. Pain then began to spread to her left shoulder. Patient also noticed some dark stools on Wednesday. Patient presented to [facility] emergency room. Patient was admitted with abdominal pain to rule out bleeding peptic ulcer. REVIEW OF SYSTEMS: CONSTITUTIONAL: Patient denies weight loss or weight gain. Patient denies fevers or chills. HEENT: Patient denies ear or throat pain. Patient denies headache. CARDIOVASCULAR: Patient denies palpitations or chest pain. CHEST: Patient denies wheeze or shortness of breath. ABDOMINAL: Patient complains of left upper quadrant pain as above. Patient denies nausea, vomiting, diarrhea, or constipation. Patient does complain of dark stools as above. GENITOURINARY: Patient denies dysuria or increased frequency of urination. NEUROMUSCULAR: Patient denies seizures or generalized weakness. PAST MEDICAL HISTORY: Significant for: 1. Gastrointestinal hemorrhage secondary to peptic ulcer disease in 2017. 2. Chronic alcoholic pancreatitis. 3. Hypertension. 4. Alcohol dependence. 5. Depression. 6. Alcoholic steatosis. PAST SURGICAL HISTORY: Significant for: 1. Gastric bypass surgery ([facility]). 2. Revision of gastric bypass. CURRENT MEDICATIONS: 1. Lisinopril 20 mg p.o. daily. 2. Paxil 20 mg p.o. daily. 3. Norvasc of an unknown dose daily. 4. Multivitamin daily. ALLERGIES: To ibuprofen, aspirin, naproxen, and all nonsteroidal anti-inflammatories secondary to GI bleed as above. SOCIAL HISTORY: The patient is single and lives alone. The patient admits to tobacco use 1/2 pack per day. The patient admits to binge alcohol use as above. The patient denies drug abuse. PHYSICAL EXAMINATION: VITAL SIGNS: Temperature 98.6, respirations 18, pulse 130, blood pressure 87/62. GENERAL: Patient is well-developed, well-nourished female, in no apparent distress. HEENT: Eyes, pupils are equal and responsive to light and accommodation. Extraocular movements are intact. NECK: Supple without lymphadenopathy. CHEST: Lungs are clear to auscultation bilaterally without wheezes or rales. CARDIOVASCULAR: Tachycardic, regular rhythm. S1, S2 normal without murmurs, rubs, or gallops. ABDOMEN: Soft, diffusely tender with decreased bowel sounds. No hepatosplenomegaly. Currently no rebound. There is voluntary guarding to the left upper quadrant to palpation. RECTAL/GENITAL: Not performed. NEUROLOGIC: Cranial nerves II through XII are grossly intact without focal deficits. Motor strength is 5/5 bilaterally. Deep tendon reflexes are 2+ plantar. LABORATORY STUDIES: WBC 12.3, hemoglobin 11.5, hematocrit 36.6, platelets 358,000. Sodium 131, potassium 4.0, chloride 94, CO2 23, BUN 15, creatinine 1.6, glucose 240. Total bilirubin elevated at 1.9, direct bilirubin elevated at 0.8, AST elevated at 124, ALT elevated at 117, alkaline phosphatase elevated at 158. Lipase is normal at 93. Amylase normal at 42. A CT scan of the abdomen and pelvis revealed markedly abnormal spleen surrounded by 9 x 7 x 9.5 cm of mixed attenuation consistent with splenic rupture and subcapsular hematoma. ASSESSMENT: This is a 49-year-old female. 1. Splenic rupture. 2. Left upper quadrant abdominal pain. 3. Severe anemia. 4. Melena. 5. Hypertension. 6. Alcohol dependence. 7. Alcoholic steatosis. TREATMENT: 1. Splenic rupture. A General Surgery consultation has been obtained with Dr. Jason Cross. We will follow recommendations of Surgery. Patient may require splenectomy during this hospitalization. Serial CBCs will be performed. 2. Left upper quadrant abdominal pain. This is probably secondary to splenic rupture as above. 3. Severe anemia. This is probably secondary to splenic rupture as above. Peptic ulcer disease and bleeding gastric ulcer cannot be excluded. A Gastroenterology consultation has been obtained with Dr. Valerio Elias. 4. Melena. This may be secondary to gastrointestinal hemorrhage. Patient has been started empirically on Protonix. 5. Hypertension. Patient is currently hypotensive. Hold antihypertensive medications. 6. Alcohol dependence. 7. Alcoholic steatosis. Ford Sevilla M.D. DR: JUSTA JOB#: [id number] CC:
[2020-02-14 19:12] LABS: BASOPHILS % (AUTO) 1.3 % (0.0-2.0); EOSINOPHILS % (AUTO) 1.2 % (0.0-3.0); HEMATOCRIT 29.6 % (37.0-47.0); HEMOGLOBIN 9.5 G/DL (12.0-16.0); LYMPHOCYTES % (AUTO) 19.1 % (20.0-45.0); MEAN CORPUSCULAR VOLUME 98 FL (80-99); NEUTROPHILS % (AUTO) 65.5 % (45.0-75.0); PLATELET COUNT 239 K/UL (150-450); RED BLOOD COUNT 3.03 M/UL (4.20-5.40); RED CELL DISTRIBUTION WIDTH 17.8 % (11.6-14.8); WHITE BLOOD COUNT 8.6 K/UL (4.8-10.8)
--- NOTE | 2020-02-14 19:30 | NUR ---
NURSE NOTES: RECEIVED REPORT FROM JONNA ROJAS. PATIENT AWAKE IN BED, ABLE TO MAKE NEEDS KNOWN. NO COMPLAINTS OF PAIN OR DISCOMFORT AT THIS TIME. BREATHING IS EVEN AND UNLABORED ON ROOM AIR, NO S/SX OF DISTRESS. IV SITES ON LFA AND RIGHT HAND ASYMPTOMATIC, PATENT AND INTACT. BED LOCKED AND IN LOWEST POSITION. SIDERAILS UP X 2. CALL LIGHT WITHIN REACH. DROPLET AND CONTACT ISOLATION IMPLEMENTED. WILL CONTINUE TO MONITOR FOR ANY CHANGES.
--- NOTE | 2020-02-14 19:40 | NUR ---
HAND-OFF: Report given to Serge Espinal.Plan of care endorsed.
[2020-02-14 20:00] VITALS: BP 135/89
[2020-02-14] MEDS: LORazepam Inj 2mg/ml 1ml IV PRN (21:46)
[2020-02-15] VITALS: BP 135/85
[2020-02-15] MEDS: Morphine Sulfate 4mg/ml Inj (IV USE ONLY) IVP PRN ×6 (01:00→19:48)
[2020-02-15] MEDS: Piperacillin/Tazobactam 3.375 GM in NS 110 ML IVPB SCH ×3 (01:01→17:39)
[2020-02-15 04:00] VITALS: BP 128/87
--- NOTE | 2020-02-15 07:15 | NUR ---
NURSE NOTES: Received report from JONNA Padilla. Pt A/Ox4. Observed pt lying in bed, no s/sx of acute distress, breathing even and unlabored in RA. Pt complains of abdominal pain 06/17. Pt is ambulatory. IV sites on R hand and L FA are patent and asymptomatic. Bed on lowest position, call light within reach. Will continue plan of care.
[2020-02-15 07:32] LABS: BASOPHILS % (AUTO) 1.4 % (0.0-2.0); EOSINOPHILS % (AUTO) 2.4 % (0.0-3.0); HEMOGLOBIN 10.7 G/DL (12.0-16.0); LYMPHOCYTES % (AUTO) 20.7 % (20.0-45.0); MEAN CORPUSCULAR VOLUME 93 FL (80-99); MONOCYTES % (AUTO) 12.3 % (1.0-10.0); NEUTROPHILS % (AUTO) 63.2 % (45.0-75.0); PLATELET COUNT 286 K/UL (150-450); RED BLOOD COUNT 3.33 M/UL (4.20-5.40); RED CELL DISTRIBUTION WIDTH 16.3 % (11.6-14.8); WHITE BLOOD COUNT 8.2 K/UL (4.8-10.8)
--- NOTE | 2020-02-15 07:32 | NUR ---
NURSE NOTES: REPORT GIVEN TO JONNA LIMA. PLAN OF CARE ENDORSED.
[2020-02-15 08:00] VITALS: BP 135/87
[2020-02-15 08:03] LABS: ALANINE AMINOTRANSFERASE 60 U/L (12-78); ALBUMIN 2.9 G/DL (3.4-5.0); ALBUMIN/GLOBULIN RATIO 0.7 (1.0-2.7); ALKALINE PHOSPHATASE 111 U/L (46-116); AMYLASE 41 U/L (25-115); ANION GAP 10 mmol/L (5-15); ASPARTATE AMINO TRANSFERASE 61 U/L (15-37); BLOOD UREA NITROGEN 6 mg/dL (7-18); CALCIUM 8.8 MG/DL (8.5-10.1); CARBON DIOXIDE 27 MMOL/L (21-32); CHLORIDE 103 MMOL/L (98-107); CREATININE 0.8 MG/DL (0.55-1.30); POTASSIUM 3.7 MMOL/L (3.5-5.1); SODIUM 139 MMOL/L (136-145)
--- NOTE | 2020-02-15 08:59 | NUR ---
CASE MANAGEMENT:REVIEW 02/15/20 SI: LUQ ABDOMINAL PAIN. ANEMIA..S/P 1 UNIT PRBC'S SPLENIC RUPTURE H/O ETOH ABUSE. PUD. GASTRIC BYPASS 98.5 70 17 128/87 97% ON RA H/H-10.7/31.0 IS: IV THIAMINE Q24 IV BANANA BAG Q24 IV MORPHINE Q3HRS PRN IVF@100/HR IV ZOSYN Q8HRS IV PROTONIX QD : TELEMETRY STATUS DCP: PATIENT IS FROM HOME PLAN: SYMPTOMATIC TREATMENT COVID 19 RESULTS PENDING....MAINTAIN DROPLET PRECAUTIONS
[2020-02-15] MEDS: Pantoprazole Inj IV SCH (09:24)
--- NOTE | 2020-02-15 11:06 | Endoscopy Procedure Note ---
Endoscopy Procedure Note General Indication for Procedure: gib Procedures Performed: colonoscopy Operative Findings/Diagnosis: diverticulosis, hemorrhoids, 3 polyps Specimen: yes Pt Tolerated Procedure Well: Yes Estimated Blood Loss: none Anesthesia Anesthesiologist: nichelle Anesthesia: MAC Inserted Devices Implant(s) used?: No Quality Quality of Bowel Preparation: Good Did scope reach the cecum?: Yes Was there any complications?: No GI Core Measures 50 yrs or older w/o bx or poly: Not Applicable 10yrs. F/U recommended: Not Applicable Valerio Elias MD Feb 15, 2020 11:06
--- NOTE | 2020-02-15 11:52 | General Progress Note ---
Assessment/Plan Problem List: (1) Fatty liver ICD Codes: K76.0 - Fatty (change of) liver, not elsewhere classified SNOMED: 659700914 (2) Elevated LFTs ICD Codes: R79.89 - Other specified abnormal findings of blood chemistry SNOMED: 567872015, 511446295 (3) Diverticulosis ICD Codes: K57.90 - Diverticulosis of intestine, part unspecified, without perforation or abscess without bleeding SNOMED: 314797621 (4) Anemia ICD Codes: D64.9 - Anemia, unspecified SNOMED: 484235570 (5) h/o panceatitis (6) History of gastric bypass ICD Codes: Z98.84 - Bariatric surgery status SNOMED: 034058865 (7) ETOH abuse ICD Codes: F10.10 - Alcohol abuse, uncomplicated SNOMED: 28078414 (8) Ovarian cyst ICD Codes: N83.20 - Unspecified ovarian cysts SNOMED: 98030584 (9) Alcohol intoxication ICD Codes: F10.129 - Alcoholabuse with intoxication, unspecified SNOMED: 08752930 (10) Abdominal pain ICD Codes: R10.9 - Unspecified abdominal pain SNOMED: 23171924 (11) Splenic rupture ICD Codes: S36.09XA - Other injury of spleen, initial encounter SNOMED: 298466862 Assessment/Plan: ppi fu H&H prn blood transfusion fu labs banana bag monitor for W/D will start Creon when patient on oral diet start clears today fu abd us Subjective ROS Limited/Unobtainable: Yes Allergies: Coded Allergies: IBUPROFEN (Unverified Allergy, Unknown, 02/13/20) ASPIRIN (Verified Adverse Reaction, Mild, ULCERS, 08/16/11) NAPROXEN (Verified Adverse Reaction, Mild, ULCERS, 05/19/12) NSAIDS (NON-STEROIDAL ANTI-INFLAMMA (Verified Adverse Reaction, Mild, ULCERS, 08/16/11) Objective Last 24 Hour Vital Signs Date Time Temp Pulse Resp B/P (MAP) Pulse Ox O2 Delivery O2 Flow Rate FiO2 02/15/20 09:00 Room Air 02/15/20 05:07 98.2 02/15/20 04:00 70 02/15/20 04:00 98.5 84 17 128/87 (101) 97 02/15/20 00:00 74 02/15/20 00:00 74 02/15/20 00:00 98.2 71 18 135/85 (102) 97 02/14/20 21:00 Room Air 02/14/20 20:00 85 02/14/20 20:00 99.1 87 17 135/89 (104) 99 02/14/20 16:00 98.7 78 18 135/88 (104) 100 02/14/20 16:00 85 02/14/20 12:00 81 02/14/20 12:00 98.6 86 20 148/86 (106) 100 Intake and Output 02/14/20 02/15/20 19:00 07:00 Intake Total 537.5 ml 1858.7 ml Balance 537.5 ml 1858.7 ml Intake IV Total 287.5 ml 1858.7 ml Blood Product 250 ml # Voids 4 3 Laboratory Tests 02/14/20 18:10: White Blood Count 8.6, Red Blood Count 3.03L, Hemoglobin 9.5L, Hematocrit 29.6L , Mean Corpuscular Volume 98, Mean Corpuscular Hemoglobin 31.3H, Mean Corpuscular Hemoglobin Concent 32.0, Red Cell Distribution Width 17.8H, Platelet Count 239, Mean Platelet Volume 6.3L, Neutrophils (%) (Auto) 65.5, Lymphocytes (%) (Auto) 19.1L, Monocytes (%) (Auto) 13.0H, Eosinophils (%) (Auto ) 1.2, Basophils (%) (Auto) 1.3 02/15/20 06:09: White Blood Count 8.2, Red Blood Count 3.33L, Hemoglobin 10.7L, Hematocrit 31.0L , Mean Corpuscular Volume 93, Mean Corpuscular Hemoglobin 32.1H, Mean Corpuscular Hemoglobin Concent 34.5, Red Cell Distribution Width 16.3H, Platelet Count 286, Mean Platelet Volume 5.3L, Neutrophils (%) (Auto) 63.2, Lymphocytes (%) (Auto) 20.7, Monocytes (%) (Auto) 12.3H, Eosinophils (%) (Auto) 2.4, Basophils (%) (Auto) 1.4, Erythrocyte Sedimentation Rate 105H, Sodium Level 139, Potassium Level 3.7, Chloride Level 103, Carbon Dioxide Level 27, Anion Gap 10, Blood Urea Nitrogen 6L, Creatinine 0.8, Estimat Glomerular Filtration Rate > 60, Glucose Level 123H, Calcium Level 8.8, Phosphorus Level 3.0, Magnesium Level 2.3, Total Bilirubin 1.0, Aspartate Amino Transf (AST/SGOT ) 61H, Alanine Aminotransferase (ALT/SGPT) 60, Alkaline Phosphatase 111, C- Reactive Protein, Quantitative 16.9H, Total Protein 7.2, Albumin 2.9L, Globulin 4.3, Albumin/Globulin Ratio 0.7L, Amylase Level 41, Lipase 99, Hepatitis A IgM Antibody [Pending], Hepatitis B Surface Antigen [Pending], Hepatitis B Core IgM Antibody [Pending], Hepatitis C Antibody [Pending] Height (Feet): 5 Height (Inches): 6.00 Weight (Pounds): 180 General Appearance: no apparent distress EENT: normal ENT inspection Neck: supple Cardiovascular: normal rate Respiratory/Chest: decreased breath sounds Abdomen: normal bowel sounds, non tender, soft Extremities: non-tender Valerio Elias MD Feb 15, 2020 11:52
[2020-02-15 12:00] VITALS: BP 141/89
--- NOTE | 2020-02-15 12:01 | Pulmonology Progress Note ---
Assessment/Plan Problems: (1) Intractable abdominal pain (2) Splenic rupture (3) PUD (peptic ulcer disease) (4) History of gastric bypass (5) ETOH abuse Assessment/Plan still in pain constipated h/h stable increase morphine to 6 mg q3 hour add laxatives Subjective ROS Limited/Unobtainable: No Constitutional: Reports: no symptoms HEENT: Repors: no symptoms Allergies: Coded Allergies: IBUPROFEN (Unverified Allergy, Unknown, 02/13/20) ASPIRIN (Verified Adverse Reaction, Mild, ULCERS, 08/16/11) NAPROXEN (Verified Adverse Reaction, Mild, ULCERS, 05/19/12) NSAIDS (NON-STEROIDAL ANTI-INFLAMMA (Verified Adverse Reaction, Mild, ULCERS, 08/16/11) Objective Last 24 Hour Vital Signs Date Time Temp Pulse Resp B/P (MAP) Pulse Ox O2 Delivery O2 Flow Rate FiO2 02/15/20 09:00 Room Air 02/15/20 05:07 98.2 02/15/20 04:00 70 02/15/20 04:00 98.5 84 17 128/87 (101) 97 02/15/20 00:00 74 02/15/20 00:00 74 02/15/20 00:00 98.2 71 18 135/85 (102) 97 02/14/20 21:00 Room Air 02/14/20 20:00 85 02/14/20 20:00 99.1 87 17 135/89 (104) 99 02/14/20 16:00 98.7 78 18 135/88 (104) 100 02/14/20 16:00 85 02/14/20 12:00 81 02/14/20 12:00 98.6 86 20 148/86 (106) 100 Intake and Output 02/14/20 02/15/20 19:00 07:00 Intake Total 537.5 ml 1858.7 ml Balance 537.5 ml 1858.7 ml Intake IV Total 287.5 ml 1858.7 ml Blood Product 250 ml # Voids 4 3 General Appearance: WD/WN HEENT: normocephalic, atraumatic Respiratory/Chest: chest wall non-tender, lungs clear Breasts: no masses Cardiovascular: normal peripheral pulses Abdomen: normal bowel sounds, soft, non tender, no organomegaly Laboratory Tests 02/14/20 18:10: White Blood Count 8.6, Red Blood Count 3.03L, Hemoglobin 9.5L, Hematocrit 29.6L , Mean Corpuscular Volume 98, Mean Corpuscular Hemoglobin 31.3H, Mean Corpuscular Hemoglobin Concent 32.0, Red Cell Distribution Width 17.8H, Platelet Count 239, Mean Platelet Volume 6.3L, Neutrophils (%) (Auto) 65.5, Lymphocytes (%) (Auto) 19.1L, Monocytes (%) (Auto) 13.0H, Eosinophils (%) (Auto ) 1.2, Basophils (%) (Auto) 1.3 02/15/20 06:09: White Blood Count 8.2, Red Blood Count 3.33L, Hemoglobin 10.7L, Hematocrit 31.0L , Mean Corpuscular Volume 93, Mean Corpuscular Hemoglobin 32.1H, Mean Corpuscular Hemoglobin Concent 34.5, Red Cell Distribution Width 16.3H, Platelet Count 286, Mean Platelet Volume 5.3L, Neutrophils (%) (Auto) 63.2, Lymphocytes (%) (Auto) 20.7, Monocytes (%) (Auto) 12.3H, Eosinophils (%) (Auto) 2.4, Basophils (%) (Auto) 1.4, Erythrocyte Sedimentation Rate 105H, Sodium Level 139, Potassium Level 3.7, Chloride Level 103, Carbon Dioxide Level 27, Anion Gap 10, Blood Urea Nitrogen 6L, Creatinine 0.8, Estimat Glomerular Filtration Rate > 60, Glucose Level 123H, Calcium Level 8.8, Phosphorus Level 3.0, Magnesium Level 2.3, Total Bilirubin 1.0, Aspartate Amino Transf (AST/SGOT ) 61H, Alanine Aminotransferase (ALT/SGPT) 60, Alkaline Phosphatase 111, C- Reactive Protein, Quantitative 16.9H, Total Protein 7.2, Albumin 2.9L, Globulin 4.3, Albumin/Globulin Ratio 0.7L, Amylase Level 41, Lipase 99, Hepatitis A IgM Antibody [Pending], Hepatitis B Surface Antigen [Pending], Hepatitis B Core IgM Antibody [Pending], Hepatitis C Antibody [Pending] Current Medications Medications (Trade) Dose Ordered Sig/Celia Route PRN Reason Start Time Stop Time Status Last Admin Dose Admin Acetaminophen (Tylenol) 650 mg Q4H PRN ORAL fever 02/13/20 13:30 03/14/20 13:29 Dextrose (Dextrose 50%) 25 ml Q30M PRN IV Hypoglycemia 02/13/20 13:30 05/13/20 13:29 Dextrose (Dextrose 50%) 50 ml Q30M PRN IV Hypoglycemia 02/13/20 13:30 05/13/20 13:29 Dextrose/ Electrolytes 1,000 ml @ 100 mls/hr Q10H IV 02/14/20 10:30 03/15/20 10:29 02/15/20 01:01 Diphenhydramine HCl (Benadryl) 25 mg Q6H PRN ORAL Itching/Pruritis 02/13/20 13:30 03/14/20 13:29 Folic Acid 1 mg/ Magnesium Sulfate 2000 mg/ Multivitamins 10 ml/Sodium Chloride 1,014.2 ml @ 125 mls/ hr Q24H IV 02/14/20 15:00 03/15/20 14:59 02/14/20 15:30 Lorazepam (Ativan 2mg/ml 1ml) 0.5 mg Q4H PRN IV For Anxiety 02/13/20 13:30 02/20/20 13:29 02/14/20 21:46 Metoclopramide HCl (Reglan) 10 mg Q6H PRN IVP servere nauasea 02/13/20 13:30 03/14/20 13:29 Morphine Sulfate (Morphine Sulfate) 2 mg EVERY 4 HOURS PRN IVP Moderate Pain (Pain Scale 4-6) 02/13/20 13:30 02/20/20 13:29 02/14/20 08:21 Morphine Sulfate (Morphine Sulfate) 4 mg Q3H PRN IVP Severe Pain (Pain Scale 7-10) 02/14/20 12:15 02/21/20 12:14 02/15/20 09:25 Nitroglycerin (Ntg) 0.4 mg Q5M X 3 DOSES PRN SL Prn Chest Pain 02/13/20 13:30 03/14/20 13:29 Ondansetron HCl (Zofran) 4 mg Q6H PRN IVP Nausea & Vomiting 02/13/20 13:30 03/14/20 13:29 Pantoprazole (Protonix) 40 mg DAILY IV 02/13/20 14:56 03/14/20 14:55 02/15/20 09:24 Piperacillin Sod/ Tazobactam Sod 3.375 gm/Sodium Chloride 110 ml @ 27.5 mls/hr Q8H IVPB 02/14/20 10:00 02/21/20 09:59 02/15/20 09:24 Polyethylene Glycol (Miralax) 17 gm HSPRN PRN ORAL Constipation 02/13/20 13:30 03/14/20 13:29 Promethazine HCl (Phenergan) 25 mg Q6H PRN IM Refractory N/V 02/13/20 13:30 03/14/20 13:29 Temazepam (Restoril) 15 mg HSPRN PRN ORAL Insomnia 02/13/20 13:30 02/20/20 13:29 Thiamine HCl 100 mg/Dextrose 56 ml @ 112 mls/hr Q24H IVPB 02/14/20 15:00 03/15/20 14:59 02/14/20 15:30 Cuate Goel MD Feb 15, 2020 12:01
--- NOTE | 2020-02-15 12:26 | NUR ---
*-*INSURANCE *-* ALL CLINICALS AND REVIEWS HAVE BEEN FAXED TO: [facility] (AJ) P: [phone] F: [phone]
[2020-02-15] MEDS: Docusate 100mg cap ORAL SCH ×2 (12:35→17:48)
[2020-02-15] MEDS: Lactulose 20gm/30ml UDC ORAL SCH ×2 (12:35→17:48)
--- NOTE | 2020-02-15 14:26 | Surgery Progress Note ---
Surgery Progress Note Subjective Additional Comments labs stable wants more pain meds no n/v/f/c h/h stable no active bleeding Objective Last 24 Hour Vital Signs Date Time Temp Pulse Resp B/P (MAP) Pulse Ox O2 Delivery O2 Flow Rate FiO2 02/15/20 09:00 Room Air 02/15/20 07:51 62 02/15/20 05:07 98.2 02/15/20 04:00 70 02/15/20 04:00 98.5 84 17 128/87 (101) 97 02/15/20 00:00 74 02/15/20 00:00 74 02/15/20 00:00 98.2 71 18 135/85 (102) 97 02/14/20 21:00 Room Air 02/14/20 20:00 85 02/14/20 20:00 99.1 87 17 135/89 (104) 99 02/14/20 16:00 98.7 78 18 135/88 (104) 100 02/14/20 16:00 85 I&O Intake and Output 02/14/20 02/15/20 19:00 07:00 Intake Total 537.5 ml 1858.7 ml Balance 537.5 ml 1858.7 ml Intake IV Total 287.5 ml 1858.7 ml Blood Product 250 ml # Voids 4 3 Cardiovascular: RSR Respiratory: clear Abdomen: soft, tenderness - left costal states from coughing prior to onset , present bowel sounds, non-distended Extremities: no edema, no tenderness, no cyanosis Laboratory Tests Test 02/14/20 18:10 02/15/20 06:09 White Blood Count 8.6 K/UL (4.8-10.8) 8.2 K/UL (4.8-10.8) Red Blood Count 3.03 M/UL (4.20-5.40) L 3.33 M/UL (4.20-5.40) L Hemoglobin 9.5 G/DL (12.0-16.0) L 10.7 G/DL (12.0-16.0) L Hematocrit 29.6 % (37.0-47.0) L 31.0 % (37.0-47.0) L Mean Corpuscular Volume 98 FL (80-99) 93 FL (80-99) Mean Corpuscular Hemoglobin 31.3 PG (27.0-31.0) H 32.1 PG (27.0-31.0) H Mean Corpuscular Hemoglobin Concent 32.0 G/DL (32.0-36.0) 34.5 G/DL (32.0-36.0) Red Cell Distribution Width 17.8 % (11.6-14.8) H 16.3 % (11.6-14.8) H Platelet Count 239 K/UL (150-450) 286 K/UL (150-450) Mean Platelet Volume 6.3 FL (6.5-10.1) L 5.3 FL (6.5-10.1) L Neutrophils (%) (Auto) 65.5 % (45.0-75.0) 63.2 % (45.0-75.0) Lymphocytes (%) (Auto) 19.1 % (20.0-45.0) L 20.7 % (20.0-45.0) Monocytes (%) (Auto) 13.0 % (1.0-10.0) H 12.3 % (1.0-10.0) H Eosinophils (%) (Auto) 1.2 % (0.0-3.0) 2.4 % (0.0-3.0) Basophils (%) (Auto) 1.3 % (0.0-2.0) 1.4 % (0.0-2.0) Erythrocyte Sedimentation Rate 105 MM/HR (0-20) H Sodium Level 139 MMOL/L (136-145) Potassium Level 3.7 MMOL/L (3.5-5.1) Chloride Level 103 MMOL/L (98-107) Carbon Dioxide Level 27 MMOL/L (21-32) Anion Gap 10 mmol/L (5-15) Blood Urea Nitrogen 6 mg/dL (7-18) L Creatinine 0.8 MG/DL (0.55-1.30) Estimat Glomerular Filtration Rate > 60 mL/min (>60) Glucose Level 123 MG/DL (74-106) H Calcium Level 8.8 MG/DL (8.5-10.1) Phosphorus Level 3.0 MG/DL (2.5-4.9) Magnesium Level 2.3 MG/DL (1.8-2.4) Total Bilirubin 1.0 MG/DL (0.2-1.0) Aspartate Amino Transf (AST/SGOT) 61 U/L (15-37) H Alanine Aminotransferase (ALT/SGPT) 60 U/L (12-78) Alkaline Phosphatase 111 U/L (46-116) C-Reactive Protein, Quantitative 16.9 mg/dL (0.00-0.90) H Total Protein 7.2 G/DL (6.4-8.2) Albumin 2.9 G/DL (3.4-5.0) L Globulin 4.3 g/dL Albumin/Globulin Ratio 0.7 (1.0-2.7) L Amylase Level 41 U/L (25-115) Lipase 99 U/L (73-393) Hepatitis A IgM Antibody Pending Hepatitis B Surface Antigen Pending Hepatitis B Core IgM Antibody Pending Hepatitis C Antibody Pending Plan Problems: (1) Splenic rupture Assessment & Plan: The spleen is markedly abnormal. The normally enhancing spleen demonstrates distortion of the anatomy and is surrounded by a large area of mixed attenuation which measures approximately 9 x 7 x 9.5 cm. High attenuation fluid is also seen within the left paracolic gutter as well as is under the left hemidiaphragm and adjacent to the left hepatic lobe. A small sliver of high attenuation fluid is also seen over the dome of the right hepatic lobe and there is a moderate amount of the same in the pelvis.. There is some infiltration of the left upper quadrant retroperitoneal and omental fat. The enhancing portion of the spleen for the most part enhances normally, although there is some heterogeneity to the enhancement of the lower pole. This is a new finding. Previously the spleen was normal in size, attenuation, and enhancement. The splenic vein is diffusely small in caliber, and patency near the hilum is uncertain. Previously this was larger in caliber. The previously demonstrated acute pancreatitis changes have resolved. The liver is mildly enlarged and is hypoattenuating. Again demonstrated are a few subcentimeter low-attenuation lesions which are too small to characterize. These are somewhat less apparent than on the prior study. The gallbladder is mildly distended. No biliary ductal dilatation. The pancreas is atrophic and contains numerous calcifications. The kidneys are unremarkable. No retroperitoneal or mesenteric mass or adenopathy. No pelvic mass or adenopathy. The appendix is normal. There is colonic diverticulosis. No evidence of acute diverticulitis. No small bowel distention. No free or loculated intraperitoneal gas or fluid is evident. There is evidence of prior gastric bypass surgery. The lung bases demonstrate mosaic perfusion which is not evident on the prior exam, and there is borderline groundglass opacity in the left costophrenic sulcus. The bones are unremarkable. Impression: Markedly abnormal spleen, surrounded by 9 x 7 x 9.5 cm area of mixed attenuation, as well as high attenuation fluid, presumably blood, within the peritoneal space. Findings most likely represent splenic rupture with large subcapsular hematoma and associated hemoperitoneum. Note also uncertain patency of the splenic vein near the hilum as well as evidence of a few small splenic hilar varices. This is new since the previous study Previously reported acute pancreatitis changes have resolved. There is now pancreatic atrophy and extensive calcification which is a new finding and presumably a sequela of the previously demonstrated acute pancreatitis Enlarged fatty liver, also previously described Mosaic perfusion at the lung bases with some borderline groundglass opacity in the left costophrenic sulcus. Findings are nonspecific, most likely represent dependent atelectatic changes but other etiologies also possible. Colonic diverticulosis. No evidence of acute diverticulitis (2) Abdominal pain Assessment & Plan: abdominal pain for [address] with possible splenic ruptures anemia leukocytosis no active extravasation noted HD stable exam with discomfort but no peritonitis will need to monitor closely admit for monitoring npo iv fluids tend h/h abd exams t/s prbc discussed with patient. if h/h drops, worsening pain, deterioration will need to proceed to OR for exploration otherwise will monitor closely with resuscitation stable trend h/h hold surgical intervention states feeling better will monitor closely thank you will follow with recs improved states pain luq from coughing just prior to incident. no trauma denies but states massive coughing prior to this h/h stable start diet [email or web address] Feb 15, 2020 14:26
[2020-02-15] MEDS: Folic Acid 1 MG, Magnesium Sulfate 2,000 MG, Multivitamin - 12 Injection 10 ML in Sodiu... IV SCH (15:15)
[2020-02-15] MEDS: Thiamine 100mg in D5W 55ml IVPB SCH (15:15)
--- NOTE | 2020-02-15 15:20 | Internal Med Progress Note ---
Subjective Date of Service: Feb 15, 2020 Physician Name Ford Sevilla Attending Physician Moisés Richards MD Current Medications Medications (Trade) Dose Ordered Sig/Celia Route PRN Reason Start Time Stop Time Status Last Admin Dose Admin Acetaminophen (Tylenol) 650 mg Q4H PRN ORAL fever 02/13/20 13:30 03/14/20 13:29 Dextrose (Dextrose 50%) 25 ml Q30M PRN IV Hypoglycemia 02/13/20 13:30 05/13/20 13:29 Dextrose (Dextrose 50%) 50 ml Q30M PRN IV Hypoglycemia 02/13/20 13:30 05/13/20 13:29 Dextrose/ Electrolytes 1,000 ml @ 100 mls/hr Q10H IV 02/14/20 10:30 03/15/20 10:29 02/15/20 01:01 Diphenhydramine HCl (Benadryl) 25 mg Q6H PRN ORAL Itching/Pruritis 02/13/20 13:30 03/14/20 13:29 Docusate Sodium (Colace) 100 mg THREE TIMES A DAY ORAL 02/15/20 13:00 03/16/20 12:59 02/15/20 12:35 Folic Acid 1 mg/ Magnesium Sulfate 2000 mg/ Multivitamins 10 ml/Sodium Chloride 1,014.2 ml @ 125 mls/ hr Q24H IV 02/14/20 15:00 03/15/20 14:59 02/15/20 15:15 Lactulose (Cephulac) 30 gm THREE TIMES A DAY ORAL 02/15/20 13:00 03/16/20 12:59 02/15/20 12:35 Lorazepam (Ativan 2mg/ml 1ml) 0.5 mg Q4H PRN IV For Anxiety 02/13/20 13:30 02/20/20 13:29 02/14/20 21:46 Metoclopramide HCl (Reglan) 10 mg Q6H PRN IVP servere nauasea 02/13/20 13:30 03/14/20 13:29 Mineral Oil (Fleet's Mineral Oil Enema) 133 ml EVERY OTHER DAY RECTAL 02/17/20 09:00 03/18/20 08:59 Morphine Sulfate (Morphine Sulfate) 2 mg EVERY 4 HOURS PRN IVP Moderate Pain (Pain Scale 4-6) 02/13/20 13:30 02/20/20 13:29 02/14/20 08:21 Morphine Sulfate (Morphine Sulfate) 6 mg Q3H PRN IVP Severe Pain (Pain Scale 7-10) 02/15/20 11:59 02/22/20 11:58 02/15/20 12:35 Nitroglycerin (Ntg) 0.4 mg Q5M X 3 DOSES PRN SL Prn Chest Pain 02/13/20 13:30 03/14/20 13:29 Ondansetron HCl (Zofran) 4 mg Q6H PRN IVP Nausea & Vomiting 02/13/20 13:30 03/14/20 13:29 Pantoprazole (Protonix) 40 mg DAILY IV 02/13/20 14:56 03/14/20 14:55 02/15/20 09:24 Piperacillin Sod/ Tazobactam Sod 3.375 gm/Sodium Chloride 110 ml @ 27.5 mls/hr Q8H IVPB 02/14/20 10:00 02/21/20 09:59 02/15/20 09:24 Polyethylene Glycol (Miralax) 17 gm HSPRN PRN ORAL Constipation 02/13/20 13:30 03/14/20 13:29 Promethazine HCl (Phenergan) 25 mg Q6H PRN IM Refractory N/V 02/13/20 13:30 03/14/20 13:29 Temazepam (Restoril) 15 mg HSPRN PRN ORAL Insomnia 02/13/20 13:30 02/20/20 13:29 Thiamine HCl 100 mg/Dextrose 56 ml @ 112 mls/hr Q24H IVPB 02/14/20 15:00 03/15/20 14:59 02/15/20 15:15 Allergies: Coded Allergies: IBUPROFEN (Unverified Allergy, Unknown, 02/13/20) ASPIRIN (Verified Adverse Reaction, Mild, ULCERS, 08/16/11) NAPROXEN (Verified Adverse Reaction, Mild, ULCERS, 05/19/12) NSAIDS (NON-STEROIDAL ANTI-INFLAMMA (Verified Adverse Reaction, Mild, ULCERS, 08/16/11) ROS Limited/Unobtainable: No Constitutional: Reports: no symptoms HEENT: Reports: no symptoms Cardiovascular: Reports: no symptoms Respiratory: Reports: no symptoms Gastrointestinal/Abdominal: Reports: abdominal pain Genitourinary: Reports: no symptoms Neurologic/Psychiatric: Reports: no symptoms Subjective 49 YO F admitted with LUQ pain. Now splenic rupture. Cover for Int Ceasar-DR Richards Objective Last Vital Signs Date Time Temp Pulse Resp B/P (MAP) Pulse Ox O2 Delivery O2 Flow Rate FiO2 02/15/20 12:00 98.2 72 20 141/89 (106) 97 02/15/20 09:00 Room Air Laboratory Tests Test 02/14/20 18:10 02/15/20 06:09 White Blood Count 8.6 K/UL (4.8-10.8) 8.2 K/UL (4.8-10.8) Red Blood Count 3.03 M/UL (4.20-5.40) L 3.33 M/UL (4.20-5.40) L Hemoglobin 9.5 G/DL (12.0-16.0) L 10.7 G/DL (12.0-16.0) L Hematocrit 29.6 % (37.0-47.0) L 31.0 % (37.0-47.0) L Mean Corpuscular Volume 98 FL (80-99) 93 FL (80-99) Mean Corpuscular Hemoglobin 31.3 PG (27.0-31.0) H 32.1 PG (27.0-31.0) H Mean Corpuscular Hemoglobin Concent 32.0 G/DL (32.0-36.0) 34.5 G/DL (32.0-36.0) Red Cell Distribution Width 17.8 % (11.6-14.8) H 16.3 % (11.6-14.8) H Platelet Count 239 K/UL (150-450) 286 K/UL (150-450) Mean Platelet Volume 6.3 FL (6.5-10.1) L 5.3 FL (6.5-10.1) L Neutrophils (%) (Auto) 65.5 % (45.0-75.0) 63.2 % (45.0-75.0) Lymphocytes (%) (Auto) 19.1 % (20.0-45.0) L 20.7 % (20.0-45.0) Monocytes (%) (Auto) 13.0 % (1.0-10.0) H 12.3 % (1.0-10.0) H Eosinophils (%) (Auto) 1.2 % (0.0-3.0) 2.4 % (0.0-3.0) Basophils (%) (Auto) 1.3 % (0.0-2.0) 1.4 % (0.0-2.0) Erythrocyte Sedimentation Rate 105 MM/HR (0-20) H Sodium Level 139 MMOL/L (136-145) Potassium Level 3.7 MMOL/L (3.5-5.1) Chloride Level 103 MMOL/L (98-107) Carbon Dioxide Level 27 MMOL/L (21-32) Anion Gap 10 mmol/L (5-15) Blood Urea Nitrogen 6 mg/dL (7-18) L Creatinine 0.8 MG/DL (0.55-1.30) Estimat Glomerular Filtration Rate > 60 mL/min (>60) Glucose Level 123 MG/DL (74-106) H Calcium Level 8.8 MG/DL (8.5-10.1) Phosphorus Level 3.0 MG/DL (2.5-4.9) Magnesium Level 2.3 MG/DL (1.8-2.4) Total Bilirubin 1.0 MG/DL (0.2-1.0) Aspartate Amino Transf (AST/SGOT) 61 U/L (15-37) H Alanine Aminotransferase (ALT/SGPT) 60 U/L (12-78) Alkaline Phosphatase 111 U/L (46-116) C-Reactive Protein, Quantitative 16.9 mg/dL (0.00-0.90) H Total Protein 7.2 G/DL (6.4-8.2) Albumin 2.9 G/DL (3.4-5.0) L Globulin 4.3 g/dL Albumin/Globulin Ratio 0.7 (1.0-2.7) L Amylase Level 41 U/L (25-115) Lipase 99 U/L (73-393) Hepatitis A IgM Antibody Pending Hepatitis B Surface Antigen Pending Hepatitis B Core IgM Antibody Pending Hepatitis C Antibody Pending Intake and Output 02/14/20 02/15/20 19:00 07:00 Intake Total 537.5 ml 1858.7 ml Balance 537.5 ml 1858.7 ml Intake IV Total 287.5 ml 1858.7 ml Blood Product 250 ml # Voids 4 3 CXR [facility] [address] [facility] [place] [address] [phone], fax [phone] Regino Longoria M.D. Ladies[employer] Trimmer Patient : PAM SAHU Referring Physician: Raffi Falk MD ID Number: [id number] Service Date: 02/13/20 : 1970 Report Date: 02/13/20 Gender: F Accession No.: [id number] Location: [facility] Procedure: CT Abdomen Pelvis w/Contrast Clinical Indication: Increased left-sided abdominal pain, history of gastric bypass Technique: No oral contrast utilized, per emergency room physician request IV administration nonionic contrast. Venous phase spiral acquisition obtained through the abdomen and pelvis. Multiplanar reconstructions were generated. Total dose length product 425 mGycm. CTDIvol(s) 7.8 mGy. Dose reduction achieved using automated exposure control Comparison: 07/11/2017 Findings: The spleen is markedly abnormal. The normally enhancing spleen demonstrates distortion of the anatomy and is surrounded by a large area of mixed attenuation which measures approximately 9 x 7 x 9.5 cm. High attenuation fluid is also seen within the left paracolic gutter as well as is under the left hemidiaphragm and adjacent to the left hepatic lobe. A small sliver of high attenuation fluid is also seen over the dome of the right hepatic lobe and there is a moderate amount of the same in the pelvis.. There is some infiltration of the left upper quadrant retroperitoneal and omental fat. The enhancing portion of the spleen for the most part enhances normally, although there is some heterogeneity to the enhancement of the lower pole. This is a new finding. Previously the spleen was normal in size, attenuation, and enhancement. The splenic vein is diffusely small in caliber, and patency near the hilum is uncertain. Previously this was larger in caliber. The previously demonstrated acute pancreatitis changes have resolved. The liver is mildly enlarged and is hypoattenuating. Again demonstrated are a few subcentimeter low-attenuation lesions which are too small to characterize. These are somewhat less apparent than on the prior study. The gallbladder is mildly distended. No biliary ductal dilatation. The pancreas is atrophic and contains numerous calcifications. The kidneys are unremarkable. No retroperitoneal or mesenteric mass or adenopathy. No pelvic mass or adenopathy. The appendix is normal. There is colonic diverticulosis. No evidence of acute diverticulitis. No small bowel distention. No free or loculated intraperitoneal gas or fluid is evident. There is evidence of prior gastric bypass surgery. The lung bases demonstrate mosaic perfusion which is not evident on the prior exam, and there is borderline groundglass opacity in the left costophrenic sulcus. The bones are unremarkable. Impression: Markedly abnormal spleen, surrounded by 9 x 7 x 9.5 cm area of mixed attenuation, as well as high attenuation fluid, presumably blood, within the peritoneal space. Findings most likely represent splenic rupture with large subcapsular hematoma and associated hemoperitoneum. Note also uncertain patency of the splenic vein near the hilum as well as evidence of a few small splenic hilar varices. This is new since the previous study Previously reported acute pancreatitis changes have resolved. There is now pancreatic atrophy and extensive calcification which is a new finding and presumably a sequela of the previously demonstrated acute pancreatitis Enlarged fatty liver, also previously described Mosaic perfusion at the lung bases with some borderline groundglass opacity in the left costophrenic sulcus. Findings are nonspecific, most likely represent dependent atelectatic changes but other etiologies also possible. Colonic diverticulosis. No evidence of acute diverticulitis Findings discussed by phone with Dr. Falk in the emergency room at the time of interpretation The CT scanner at [facility] is accredited by the [place] [employer] and the scans are performed using protocols designed to limit radiation exposure to as low as reasonably achievable to attain images of sufficient resolution adequate for diagnostic evaluation. Dictated By: Antonio Roy MD Electronically Signed By: Antonio Roy MD Signed Date/Time 02/13/20 0934 CC: Raffi Falk MD Objective PHYSICAL EXAMINATION: GENERAL: Patient is well-developed, well-nourished female, in no apparent distress. HEENT: Eyes, pupils are equal and responsive to light and accommodation. Extraocular movements are intact. NECK: Supple without lymphadenopathy. CHEST: Lungs are clear to auscultation bilaterally without wheezes or rales. CARDIOVASCULAR: Tachycardic, regular rhythm. S1, S2 normal without murmurs, rubs, or gallops. ABDOMEN: Soft, diffusely tender with decreased bowel sounds. No hepatosplenomegaly. Currently no rebound. There is voluntary guarding to the left upper quadrant to palpation. RECTAL/GENITAL: Not performed. NEUROLOGIC: Cranial nerves II through XII are grossly intact without focal deficits. Motor strength is 5/5 bilaterally. Deep tendon reflexes are 2+ plantar. Assessment/Plan Assessment/Plan ASSESSMENT: This is a 49-year-old female. 1. Splenic rupture. 2. Left upper quadrant abdominal pain. 3. Severe anemia. 4. Melena. 5. Hypertension. 6. Alcohol dependence. 7. Alcoholic steatosis. TREATMENT: 1. Splenic rupture. A General Surgery consultation has been obtained with Dr. Jason Cross. We will follow recommendations of Surgery. Patient may require splenectomy during this hospitalization. Serial CBCs will be performed. 2. Left upper quadrant abdominal pain. This is probably secondary to splenic rupture as above. 3. Severe anemia. This is probably secondary to splenic rupture as above. Peptic ulcer disease and bleeding gastric ulcer cannot be excluded. A Gastroenterology consultation has been obtained with Dr. Valerio Elias. 4. Melena. This may be secondary to gastrointestinal hemorrhage. Patient has been started empirically on Protonix. 5. Hypertension. Patient is currently hypotensive. Hold antihypertensive medications. 6. Alcohol dependence. 7. Alcoholic steatosis. Ford Sevilla MD Feb 15, 2020 15:20
[2020-02-15 16:00] VITALS: BP 143/93
--- NOTE | 2020-02-15 19:41 | NUR ---
HAND-OFF: Report given to JONNA Tovar. Pt in stable condition. Endorsed plan of care.
[2020-02-15 20:00] VITALS: BP 156/89
--- NOTE | 2020-02-15 20:00 | NUR ---
NURSE NOTES: Pt A/Ox4. Observed pt lying in bed, no s/sx of acute distress, breathing even and unlabored in RA. Pt complains of abdominal pain 06/17. Pt is ambulatory, steady gait. IV sites on R hand and L FA are patent and asymptomatic. Bed in lowest position, call light within reach. Will continue plan of care.
[2020-02-16] VITALS: BP 121/77
[2020-02-16] MEDS: Morphine Sulfate 4mg/ml Inj (IV USE ONLY) IVP PRN ×7 (00:34→21:52)
[2020-02-16] MEDS: Piperacillin/Tazobactam 3.375 GM in NS 110 ML IVPB SCH ×3 (01:31→17:49)
[2020-02-16 04:00] VITALS: BP 154/90
[2020-02-16 05:53] LABS: BASOPHILS % (AUTO) 1.4 % (0.0-2.0); EOSINOPHILS % (AUTO) 2.6 % (0.0-3.0); HEMATOCRIT 33.7 % (37.0-47.0); HEMOGLOBIN 11.3 G/DL (12.0-16.0); LYMPHOCYTES % (AUTO) 23.3 % (20.0-45.0); MEAN CORPUSCULAR VOLUME 94 FL (80-99); MONOCYTES % (AUTO) 17.8 % (1.0-10.0); PLATELET COUNT 314 K/UL (150-450); RED BLOOD COUNT 3.59 M/UL (4.20-5.40); RED CELL DISTRIBUTION WIDTH 15.8 % (11.6-14.8); WHITE BLOOD COUNT 7.7 K/UL (4.8-10.8)
[2020-02-16 06:18] LABS: ALANINE AMINOTRANSFERASE 79 U/L (12-78); ALBUMIN 3.2 G/DL (3.4-5.0); ALBUMIN/GLOBULIN RATIO 0.7 (1.0-2.7); ALKALINE PHOSPHATASE 126 U/L (46-116); ANION GAP 9 mmol/L (5-15); ASPARTATE AMINO TRANSFERASE 97 U/L (15-37); BILIRUBIN,TOTAL 0.8 MG/DL (0.2-1.0); BLOOD UREA NITROGEN 5 mg/dL (7-18); CALCIUM 9.3 MG/DL (8.5-10.1); CARBON DIOXIDE 28 MMOL/L (21-32); CHLORIDE 100 MMOL/L (98-107); CREATININE 0.8 MG/DL (0.55-1.30); POTASSIUM 3.6 MMOL/L (3.5-5.1); SODIUM 137 MMOL/L (136-145)
--- NOTE | 2020-02-16 07:25 | NUR ---
HAND-OFF: Report given to JONNA Boyd.
--- NOTE | 2020-02-16 07:57 | NUR ---
NURSE NOTES: Informed Dr Goel that pt tested negative for covid. Awaiting for an order to change isolation.
[2020-02-16 08:00] VITALS: BP 152/88
[2020-02-16] MEDS: Pantoprazole Inj IV SCH (08:31)
[2020-02-16] MEDS: Lactulose 20gm/30ml UDC ORAL SCH ×4 (08:31→17:49)
[2020-02-16] MEDS: Docusate 100mg cap ORAL SCH ×3 (08:31→17:49)
--- NOTE | 2020-02-16 08:35 | NUR ---
CASE MANAGEMENT:REVIEW 02/16/20 SI: LUQ ABDOMINAL PAIN. ANEMIA..S/P 1 UNIT PRBC'S SPLENIC RUPTURE. COVID 19 NOT DETECTED H/O ETOH ABUSE. PUD. GASTRIC BYPASS 99.6 89 19 154/90 97% ON RA H/H-11.3/33.7 AST/ALT+97/79 IS: LACTULOSE PO TID IV THIAMINE Q24 IV BANANA BAG Q24 IV MORPHINE 6MG Q3HRS PRN IVF@100/HR IV ZOSYN Q8HRS IV PROTONIX QD MINERAL OIL ENEMA EVERY OTHER DAY : TELEMETRY STATUS DCP: PATIENT IS FROM HOME PLAN: SYMPTOMATIC TREATMENT WILL DC DROPLET PRECAUTION REGULAR DIET STARTED WAITING FOR "STABLE FOR TRANSFER" ORDER
--- NOTE | 2020-02-16 08:44 | NUR ---
INSURANCE FAXED UPDATED CLINICALS, REVIEW AND COVID REPORT TO: BALAJI DIAZ T: [phone] F: [phone] AUTH #[id number]
--- NOTE | 2020-02-16 09:05 | General Progress Note ---
Assessment/Plan Problem List: (1) Fatty liver ICD Codes: K76.0 - Fatty (change of) liver, not elsewhere classified SNOMED: 845123707 (2) Elevated LFTs ICD Codes: R79.89 - Other specified abnormal findings of blood chemistry SNOMED: 310544394, 298955222 (3) Diverticulosis ICD Codes: K57.90 - Diverticulosis of intestine, part unspecified, without perforation or abscess without bleeding SNOMED: 479925248 (4) Anemia ICD Codes: D64.9 - Anemia, unspecified SNOMED: 621670357 (5) h/o panceatitis (6) History of gastric bypass ICD Codes: Z98.84 - Bariatric surgery status SNOMED: 054862312 (7) ETOH abuse ICD Codes: F10.10 - Alcohol abuse, uncomplicated SNOMED: 59286800 (8) Ovarian cyst ICD Codes: N83.20 - Unspecified ovarian cysts SNOMED: 89487219 (9) Alcohol intoxication ICD Codes: F10.129 - Alcoholabuse with intoxication, unspecified SNOMED: 29135131 (10) Abdominal pain ICD Codes: R10.9 - Unspecified abdominal pain SNOMED: 96882606 (11) Splenic rupture ICD Codes: S36.09XA - Other injury of spleen, initial encounter SNOMED: 199633615 Assessment/Plan: ppi fu H&H prn blood transfusion fu labs banana bag>>> will dc monitor for W/D will start Creon when patient on oral diet start clears today fu abd us Subjective ROS Limited/Unobtainable: No Allergies: Coded Allergies: IBUPROFEN (Unverified Allergy, Unknown, 02/13/20) ASPIRIN (Verified Adverse Reaction, Mild, ULCERS, 08/16/11) NAPROXEN (Verified Adverse Reaction, Mild, ULCERS, 05/19/12) NSAIDS (NON-STEROIDAL ANTI-INFLAMMA (Verified Adverse Reaction, Mild, ULCERS, 08/16/11) Objective Last 24 Hour Vital Signs Date Time Temp Pulse Resp B/P (MAP) Pulse Ox O2 Delivery O2 Flow Rate FiO2 02/16/20 04:20 98.8 02/16/20 04:00 99.6 89 19 154/90 (111) 97 02/16/20 04:00 76 02/16/20 00:00 97.8 85 18 121/77 (92) 98 02/16/20 00:00 74 02/15/20 21:00 Room Air 02/15/20 20:00 80 02/15/20 20:00 98.2 73 20 156/89 (111) 96 02/15/20 16:39 93 02/15/20 16:00 98.8 82 20 143/93 (110) 97 02/15/20 12:00 98.2 72 20 141/89 (106) 97 02/15/20 11:47 78 Intake and Output 02/15/20 02/16/20 19:00 07:00 Intake Total 600 ml Balance 600 ml Intake Oral 600 ml # Voids 5 3 Laboratory Tests 02/16/20 04:40: White Blood Count 7.7, Red Blood Count 3.59L, Hemoglobin 11.3L, Hematocrit 33.7L , Mean Corpuscular Volume 94, Mean Corpuscular Hemoglobin 31.6H, Mean Corpuscular Hemoglobin Concent 33.6, Red Cell Distribution Width 15.8H, Platelet Count 314, Mean Platelet Volume 4.7L, Neutrophils (%) (Auto) 55.0, Lymphocytes (%) (Auto) 23.3, Monocytes (%) (Auto) 17.8H, Eosinophils (%) (Auto) 2.6, Basophils (%) (Auto) 1.4, Sodium Level 137, Potassium Level 3.6, Chloride Level 100, Carbon Dioxide Level 28, Anion Gap 9, Blood Urea Nitrogen 5L, Creatinine 0.8, Estimat Glomerular Filtration Rate > 60, Glucose Level 100, Calcium Level 9.3, Total Bilirubin 0.8, Aspartate Amino Transf (AST/SGOT) 97H, Alanine Aminotransferase (ALT/SGPT) 79H, Alkaline Phosphatase 126H, Total Protein 8.1, Albumin 3.2L, Globulin 4.9, Albumin/Globulin Ratio 0.7L Height (Feet): 5 Height (Inches): 6.00 Weight (Pounds): 180 General Appearance: alert EENT: normal ENT inspection Neck: supple Cardiovascular: normal rate Respiratory/Chest: decreased breath sounds Abdomen: normal bowel sounds, non tender, soft Extremities: non-tender Valerio Elias MD Feb 16, 2020 09:05
--- NOTE | 2020-02-16 09:10 | General Progress Note ---
Assessment/Plan Problem List: (1) Fatty liver ICD Codes: K76.0 - Fatty (change of) liver, not elsewhere classified SNOMED: 403676825 (2) Elevated LFTs ICD Codes: R79.89 - Other specified abnormal findings of blood chemistry SNOMED: 267480074, 010477181 (3) Diverticulosis ICD Codes: K57.90 - Diverticulosis of intestine, part unspecified, without perforation or abscess without bleeding SNOMED: 083389637 (4) Anemia ICD Codes: D64.9 - Anemia, unspecified SNOMED: 658278948 (5) h/o panceatitis (6) History of gastric bypass ICD Codes: Z98.84 - Bariatric surgery status SNOMED: 030015948 (7) ETOH abuse ICD Codes: F10.10 - Alcohol abuse, uncomplicated SNOMED: 28834003 (8) Ovarian cyst ICD Codes: N83.20 - Unspecified ovarian cysts SNOMED: 47303205 (9) Alcohol intoxication ICD Codes: F10.129 - Alcoholabuse with intoxication, unspecified SNOMED: 20064284 (10) Abdominal pain ICD Codes: R10.9 - Unspecified abdominal pain SNOMED: 06766128 (11) Splenic rupture ICD Codes: S36.09XA - Other injury of spleen, initial encounter SNOMED: 611563210 Assessment/Plan: ppi fu H&H prn blood transfusion fu labs banana bag>>> will dc monitor for W/D will start Creon on diet fu abd us Subjective ROS Limited/Unobtainable: Yes Allergies: Coded Allergies: IBUPROFEN (Unverified Allergy, Unknown, 02/13/20) ASPIRIN (Verified Adverse Reaction, Mild, ULCERS, 08/16/11) NAPROXEN (Verified Adverse Reaction, Mild, ULCERS, 05/19/12) NSAIDS (NON-STEROIDAL ANTI-INFLAMMA (Verified Adverse Reaction, Mild, ULCERS, 08/16/11) Objective Last 24 Hour Vital Signs Date Time Temp Pulse Resp B/P (MAP) Pulse Ox O2 Delivery O2 Flow Rate FiO2 02/16/20 04:20 98.8 02/16/20 04:00 99.6 89 19 154/90 (111) 97 02/16/20 04:00 76 02/16/20 00:00 97.8 85 18 121/77 (92) 98 02/16/20 00:00 74 02/15/20 21:00 Room Air 02/15/20 20:00 80 02/15/20 20:00 98.2 73 20 156/89 (111) 96 02/15/20 16:39 93 02/15/20 16:00 98.8 82 20 143/93 (110) 97 02/15/20 12:00 98.2 72 20 141/89 (106) 97 02/15/20 11:47 78 Intake and Output 02/15/20 02/16/20 19:00 07:00 Intake Total 600 ml Balance 600 ml Intake Oral 600 ml # Voids 5 3 Laboratory Tests 02/16/20 04:40: White Blood Count 7.7, Red Blood Count 3.59L, Hemoglobin 11.3L, Hematocrit 33.7L , Mean Corpuscular Volume 94, Mean Corpuscular Hemoglobin 31.6H, Mean Corpuscular Hemoglobin Concent 33.6, Red Cell Distribution Width 15.8H, Platelet Count 314, Mean Platelet Volume 4.7L, Neutrophils (%) (Auto) 55.0, Lymphocytes (%) (Auto) 23.3, Monocytes (%) (Auto) 17.8H, Eosinophils (%) (Auto) 2.6, Basophils (%) (Auto) 1.4, Sodium Level 137, Potassium Level 3.6, Chloride Level 100, Carbon Dioxide Level 28, Anion Gap 9, Blood Urea Nitrogen 5L, Creatinine 0.8, Estimat Glomerular Filtration Rate > 60, Glucose Level 100, Calcium Level 9.3, Total Bilirubin 0.8, Aspartate Amino Transf (AST/SGOT) 97H, Alanine Aminotransferase (ALT/SGPT) 79H, Alkaline Phosphatase 126H, Total Protein 8.1, Albumin 3.2L, Globulin 4.9, Albumin/Globulin Ratio 0.7L Height (Feet): 5 Height (Inches): 6.00 Weight (Pounds): 180 General Appearance: alert EENT: normal ENT inspection Neck: supple Cardiovascular: normal peripheral pulses Respiratory/Chest: decreased breath sounds Abdomen: normal bowel sounds, non tender, soft Extremities: non-tender Valerio Elias MD Feb 16, 2020 09:10
--- NOTE | 2020-02-16 11:14 | NUR ---
TRANSFER UPDATE TRANSFER DISCUSSED WITH DR MULLEN AND DR VIVEROS ORDER RECEIVED AND ENTERED......STABLE TO TRANSFER TO [facility] FAXED ORDER TO [facility]
[2020-02-16 12:00] VITALS: BP 162/97
--- NOTE | 2020-02-16 12:39 | Pulmonology Progress Note ---
Assessment/Plan Problems: (1) Intractable abdominal pain (2) Splenic rupture (3) PUD (peptic ulcer disease) (4) History of gastric bypass (5) ETOH abuse Assessment/Plan pain is better controlled stable to transfer apparently doesn't need any surgery h/h stable on morphine to 6 mg q3 hour add laxatives Subjective ROS Limited/Unobtainable: No Constitutional: Reports: no symptoms HEENT: Repors: no symptoms Allergies: Coded Allergies: IBUPROFEN (Unverified Allergy, Unknown, 02/13/20) ASPIRIN (Verified Adverse Reaction, Mild, ULCERS, 08/16/11) NAPROXEN (Verified Adverse Reaction, Mild, ULCERS, 05/19/12) NSAIDS (NON-STEROIDAL ANTI-INFLAMMA (Verified Adverse Reaction, Mild, ULCERS, 08/16/11) Objective Last 24 Hour Vital Signs Date Time Temp Pulse Resp B/P (MAP) Pulse Ox O2 Delivery O2 Flow Rate FiO2 02/16/20 12:00 98.5 69 20 162/97 (118) 98 02/16/20 09:00 Room Air 02/16/20 08:41 79 02/16/20 08:00 99.0 93 20 152/88 (109) 98 02/16/20 04:20 98.8 02/16/20 04:00 99.6 89 19 154/90 (111) 97 02/16/20 04:00 76 02/16/20 00:00 97.8 85 18 121/77 (92) 98 02/16/20 00:00 74 02/15/20 21:00 Room Air 02/15/20 20:00 80 02/15/20 20:00 98.2 73 20 156/89 (111) 96 02/15/20 16:39 93 02/15/20 16:00 98.8 82 20 143/93 (110) 97 Intake and Output 02/15/20 02/16/20 19:00 07:00 Intake Total 600 ml Balance 600 ml Intake Oral 600 ml # Voids 5 3 General Appearance: WD/WN, no acute distress HEENT: normocephalic, atraumatic Respiratory/Chest: chest wall non-tender, lungs clear Cardiovascular: normal peripheral pulses, normal rate Abdomen: normal bowel sounds, no organomegaly Genitourinary: normal external genitalia Skin: no rash Microbiology Date/Time Source Procedure Growth Status 02/13/20 18:08 Nasopharynx Coronavirus COVID-19 PCR ([facility]) - Final Complete Laboratory Tests 02/16/20 04:40: White Blood Count 7.7, Red Blood Count 3.59L, Hemoglobin 11.3L, Hematocrit 33.7L , Mean Corpuscular Volume 94, Mean Corpuscular Hemoglobin 31.6H, Mean Corpuscular Hemoglobin Concent 33.6, Red Cell Distribution Width 15.8H, Platelet Count 314, Mean Platelet Volume 4.7L, Neutrophils (%) (Auto) 55.0, Lymphocytes (%) (Auto) 23.3, Monocytes (%) (Auto) 17.8H, Eosinophils (%) (Auto) 2.6, Basophils (%) (Auto) 1.4, Sodium Level 137, Potassium Level 3.6, Chloride Level 100, Carbon Dioxide Level 28, Anion Gap 9, Blood Urea Nitrogen 5L, Creatinine 0.8, Estimat Glomerular Filtration Rate > 60, Glucose Level 100, Calcium Level 9.3, Total Bilirubin 0.8, Aspartate Amino Transf (AST/SGOT) 97H, Alanine Aminotransferase (ALT/SGPT) 79H, Alkaline Phosphatase 126H, Total Protein 8.1, Albumin 3.2L, Globulin 4.9, Albumin/Globulin Ratio 0.7L Current Medications Medications (Trade) Dose Ordered Sig/Celia Route PRN Reason Start Time Stop Time Status Last Admin Dose Admin Acetaminophen (Tylenol) 650 mg Q4H PRN ORAL fever 02/13/20 13:30 03/14/20 13:29 Amylase/Lipase/ Protease (Zenpep) 2 ea THREE TIMES A DAY ORAL 02/16/20 13:00 05/16/20 12:59 Dextrose (Dextrose 50%) 25 ml Q30M PRN IV Hypoglycemia 02/13/20 13:30 05/13/20 13:29 Dextrose (Dextrose 50%) 50 ml Q30M PRN IV Hypoglycemia 02/13/20 13:30 05/13/20 13:29 Dextrose/ Electrolytes 1,000 ml @ 100 mls/hr Q10H IV 02/14/20 10:30 03/15/20 10:29 02/16/20 03:47 Diphenhydramine HCl (Benadryl) 25 mg Q6H PRN ORAL Itching/Pruritis 02/13/20 13:30 03/14/20 13:29 Docusate Sodium (Colace) 100 mg THREE TIMES A DAY ORAL 02/15/20 13:00 03/16/20 12:59 02/16/20 08:31 Folic Acid 1 mg/ Magnesium Sulfate 2000 mg/ Multivitamins 10 ml/Sodium Chloride 1,014.2 ml @ 125 mls/ hr Q24H IV 02/14/20 15:00 03/15/20 14:59 02/15/20 15:15 Lactulose (Cephulac) 30 gm THREE TIMES A DAY ORAL 02/15/20 13:00 03/16/20 12:59 02/15/20 17:48 Lorazepam (Ativan 2mg/ml 1ml) 0.5 mg Q4H PRN IV For Anxiety 02/13/20 13:30 02/20/20 13:29 02/14/20 21:46 Metoclopramide HCl (Reglan) 10 mg Q6H PRN IVP servere nauasea 02/13/20 13:30 03/14/20 13:29 Mineral Oil (Fleet's Mineral Oil Enema) 133 ml EVERY OTHER DAY RECTAL 02/17/20 09:00 03/18/20 08:59 Morphine Sulfate (Morphine Sulfate) 2 mg EVERY 4 HOURS PRN IVP Moderate Pain (Pain Scale 4-6) 02/13/20 13:30 02/20/20 13:29 02/14/20 08:21 Morphine Sulfate (Morphine Sulfate) 6 mg Q3H PRN IVP Severe Pain (Pain Scale 7-10) 02/15/20 11:59 02/22/20 11:58 02/16/20 10:41 Nitroglycerin (Ntg) 0.4 mg Q5M X 3 DOSES PRN SL Prn Chest Pain 02/13/20 13:30 03/14/20 13:29 Ondansetron HCl (Zofran) 4 mg Q6H PRN IVP Nausea & Vomiting 02/13/20 13:30 03/14/20 13:29 Pantoprazole (Protonix) 40 mg DAILY IV 02/13/20 14:56 03/14/20 14:55 02/16/20 08:31 Piperacillin Sod/ Tazobactam Sod 3.375 gm/Sodium Chloride 110 ml @ 27.5 mls/hr Q8H IVPB 02/14/20 10:00 02/21/20 09:59 02/16/20 10:00 Polyethylene Glycol (Miralax) 17 gm HSPRN PRN ORAL Constipation 02/13/20 13:30 03/14/20 13:29 Promethazine HCl (Phenergan) 25 mg Q6H PRN IM Refractory N/V 02/13/20 13:30 03/14/20 13:29 Temazepam (Restoril) 15 mg HSPRN PRN ORAL Insomnia 02/13/20 13:30 02/20/20 13:29 02/15/20 22:09 Thiamine HCl 100 mg/Dextrose 56 ml @ 112 mls/hr Q24H IVPB 02/14/20 15:00 03/15/20 14:59 02/15/20 15:15 Cuate Goel MD Feb 16, 2020 12:39
[2020-02-16] MEDS: Pancrelipase Dr Cap ORAL SCH ×2 (13:00→17:49)
--- NOTE | 2020-02-16 13:10 | Consultation ---
Consult Note Consult Note 49yo woman with PMH below presents from home with L sided pain for a few days, fever of 101, chills and diaphoresis. Reports one episode of diarrhea. Denies cough or sob. No sick contacts. Live alone. Prior to pain onset, pt had binging etoh and thought it was her recurrent pancreatitis. Pt denies cough to me but reported cough to other providers ROS: per above PMH: PUD HTN EtOH abuse Depression SHx: lives at home. alcohol binge. cigartte use. denies illicit drug use. no pets. FHx: noncontributory VS: reviewed Gen: NAD. well nourished. well hydrated HEENT: anicteric sclera. MMM. no cervical LAD CV: RRR. S1+S2. no rubs or gallop. Resp: RRR. no wheezes or crackles. equal chest rise. unlabored. Abd: soft. normoactive Bs+. L sided tenderness Ext: no LE edema. no clubbing. no joint deformity Neuro: AAO. follows commands. answers questions appropriately. Skin: warm. dry. nondiaphoretic Psych: nonlabile. affect is mood congruent. Labs: reviewed Imaging: reviewed Assessment: Subjective fever Mild leukocytosis Transaminitis CAP r/o COVID SARS CoV PCR negative CT chest: Mosaic perfusion at the lung bases with some borderline groundglass opacity in the left costophrenic sulcus. Findings are nonspecific, most likely represent dependent atelectatic changes but other etiologies also possible. Splenic rupture with large subcapsular hematoma and hemoperitoneum 02/12 CT A/P: Markedly abnormal spleen, surrounded by 9 x 7 x 9.5 cm area of mixed attenuation, as well as high attenuation fluid, presumably blood, within the peritoneal space. Findings most likely represent splenic rupture with large subcapsular hematoma and associated hemoperitoneum. Note also uncertain patency of the splenic vein near the hilum as well as evidence of a few small splenic hilar varices. This is new since the previous study. Previously reported acute pancreatitis changes have resolved. There is now pancreatic atrophy and extensive calcification which is a new finding and presumably a sequela of the previously demonstrated acute pancreatitis. Enlarged fatty liver, also previously described. Colonic diverticulosis. No evidence of acute diverticulitis PUD HTN EtOH abuse Depression Plan: continue zosyn #4 send second COVID swab. while fevers most likely 2/2 splenic rupture, pt reported cough to other providers and CT chest with GGO. continue COVID isolation monitor temp and CBC monitor resp status obtain two sets of bcx if T>100.4 pt is ok to be transferred while on isolation DW Donnie Reed MD Feb 16, 2020 13:10
--- NOTE | 2020-02-16 15:55 | Surgery Progress Note ---
Surgery Progress Note Subjective Additional Comments stable gonzalez cute events labs noted pain stable Objective Last 24 Hour Vital Signs Date Time Temp Pulse Resp B/P (MAP) Pulse Ox O2 Delivery O2 Flow Rate FiO2 02/16/20 12:00 98.5 69 20 162/97 (118) 98 02/16/20 09:00 Room Air 02/16/20 08:41 79 02/16/20 08:00 99.0 93 20 152/88 (109) 98 02/16/20 04:20 98.8 02/16/20 04:00 99.6 89 19 154/90 (111) 97 02/16/20 04:00 76 02/16/20 00:00 97.8 85 18 121/77 (92) 98 02/16/20 00:00 74 02/15/20 21:00 Room Air 02/15/20 20:00 80 02/15/20 20:00 98.2 73 20 156/89 (111) 96 02/15/20 16:39 93 02/15/20 16:00 98.8 82 20 143/93 (110) 97 I&O Intake and Output 02/15/20 02/16/20 19:00 07:00 Intake Total 600 ml Balance 600 ml Intake Oral 600 ml # Voids 5 3 Cardiovascular: RSR Respiratory: clear Abdomen: soft, tenderness, present bowel sounds, non-distended Extremities: no edema, no tenderness, no cyanosis Laboratory Tests Test 02/16/20 04:40 White Blood Count 7.7 K/UL (4.8-10.8) Red Blood Count 3.59 M/UL (4.20-5.40) L Hemoglobin 11.3 G/DL (12.0-16.0) L Hematocrit 33.7 % (37.0-47.0) L Mean Corpuscular Volume 94 FL (80-99) Mean Corpuscular Hemoglobin 31.6 PG (27.0-31.0) H Mean Corpuscular Hemoglobin Concent 33.6 G/DL (32.0-36.0) Red Cell Distribution Width 15.8 % (11.6-14.8) H Platelet Count 314 K/UL (150-450) Mean Platelet Volume 4.7 FL (6.5-10.1) L Neutrophils (%) (Auto) 55.0 % (45.0-75.0) Lymphocytes (%) (Auto) 23.3 % (20.0-45.0) Monocytes (%) (Auto) 17.8 % (1.0-10.0) H Eosinophils (%) (Auto) 2.6 % (0.0-3.0) Basophils (%) (Auto) 1.4 % (0.0-2.0) Sodium Level 137 MMOL/L (136-145) Potassium Level 3.6 MMOL/L (3.5-5.1) Chloride Level 100 MMOL/L (98-107) Carbon Dioxide Level 28 MMOL/L (21-32) Anion Gap 9 mmol/L (5-15) Blood Urea Nitrogen 5 mg/dL (7-18) L Creatinine 0.8 MG/DL (0.55-1.30) Estimat Glomerular Filtration Rate > 60 mL/min (>60) Glucose Level 100 MG/DL (74-106) Calcium Level 9.3 MG/DL (8.5-10.1) Total Bilirubin 0.8 MG/DL (0.2-1.0) Aspartate Amino Transf (AST/SGOT) 97 U/L (15-37) H Alanine Aminotransferase (ALT/SGPT) 79 U/L (12-78) H Alkaline Phosphatase 126 U/L (46-116) H Total Protein 8.1 G/DL (6.4-8.2) Albumin 3.2 G/DL (3.4-5.0) L Globulin 4.9 g/dL Albumin/Globulin Ratio 0.7 (1.0-2.7) L Plan Problems: (1) Splenic rupture Assessment & Plan: The spleen is markedly abnormal. The normally enhancing spleen demonstrates distortion of the anatomy and is surrounded by a large area of mixed attenuation which measures approximately 9 x 7 x 9.5 cm. High attenuation fluid is also seen within the left paracolic gutter as well as is under the left hemidiaphragm and adjacent to the left hepatic lobe. A small sliver of high attenuation fluid is also seen over the dome of the right hepatic lobe and there is a moderate amount of the same in the pelvis.. There is some infiltration of the left upper quadrant retroperitoneal and omental fat. The enhancing portion of the spleen for the most part enhances normally, although there is some heterogeneity to the enhancement of the lower pole. This is a new finding. Previously the spleen was normal in size, attenuation, and enhancement. The splenic vein is diffusely small in caliber, and patency near the hilum is uncertain. Previously this was larger in caliber. The previously demonstrated acute pancreatitis changes have resolved. The liver is mildly enlarged and is hypoattenuating. Again demonstrated are a few subcentimeter low-attenuation lesions which are too small to characterize. These are somewhat less apparent than on the prior study. The gallbladder is mildly distended. No biliary ductal dilatation. The pancreas is atrophic and contains numerous calcifications. The kidneys are unremarkable. No retroperitoneal or mesenteric mass or adenopathy. No pelvic mass or adenopathy. The appendix is normal. There is colonic diverticulosis. No evidence of acute diverticulitis. No small bowel distention. No free or loculated intraperitoneal gas or fluid is evident. There is evidence of prior gastric bypass surgery. The lung bases demonstrate mosaic perfusion which is not evident on the prior exam, and there is borderline groundglass opacity in the left costophrenic sulcus. The bones are unremarkable. Impression: Markedly abnormal spleen, surrounded by 9 x 7 x 9.5 cm area of mixed attenuation, as well as high attenuation fluid, presumably blood, within the peritoneal space. Findings most likely represent splenic rupture with large subcapsular hematoma and associated hemoperitoneum. Note also uncertain patency of the splenic vein near the hilum as well as evidence of a few small splenic hilar varices. This is new since the previous study Previously reported acute pancreatitis changes have resolved. There is now pancreatic atrophy and extensive calcification which is a new finding and presumably a sequela of the previously demonstrated acute pancreatitis Enlarged fatty liver, also previously described Mosaic perfusion at the lung bases with some borderline groundglass opacity in the left costophrenic sulcus. Findings are nonspecific, most likely represent dependent atelectatic changes but other etiologies also possible. Colonic diverticulosis. No evidence of acute diverticulitis (2) Abdominal pain Assessment & Plan: abdominal pain for [address] with possible splenic ruptures anemia leukocytosis no active extravasation noted HD stable exam with discomfort but no peritonitis will need to monitor closely admit for monitoring npo iv fluids tend h/h abd exams t/s prbc discussed with patient. if h/h drops, worsening pain, deterioration will need to proceed to OR for exploration otherwise will monitor closely with resuscitation stable trend h/h hold surgical intervention states feeling better will monitor closely thank you will follow with recs improved states pain luq from coughing just prior to incident. no trauma denies but states massive coughing prior to this h/h stable start diet Additional Comments pending US Jason Cross Feb 16, 2020 15:55
[2020-02-16 16:00] VITALS: BP 158/89
[2020-02-16] MEDS: Folic Acid 1 MG, Magnesium Sulfate 2,000 MG, Multivitamin - 12 Injection 10 ML in Sodiu... IV SCH (16:28)
[2020-02-16] MEDS: Thiamine 100mg in D5W 55ml IVPB SCH (16:28)
[2020-02-16 20:00] VITALS: BP 150/90
--- NOTE | 2020-02-16 20:00 | NUR ---
NURSE NOTES: Spoke with JONNA Hammond at [facility] earlier, and she confirmed the transfer today, knowing that MD ordered to reswab the pt for Covid-19. She arranged transportation. Ambulance came to pickup the patient. Received a call again from JONNA Hammond stating that transfer is cancelled until the 2nd result of covid-19 is ready.
--- NOTE | 2020-02-16 20:00 | NUR ---
NURSE NOTES: Pt received from JONNA Smith. Pt A/Ox4. Observed pt lying in bed, no s/sx of acute distress, breathing even and unlabored in RA. Pt complains of abdominal pain 06/17. Pt is ambulatory, steady gait. IV sites- L FA patent and asymptomatic, removed R IV. Bed in lowest position, call light within reach. Will continue plan of care.
--- NOTE | 2020-02-16 21:10 | NUR ---
HAND-OFF: Report given to JONNA Tovar. Pt in stable condition. Endorsed plan of care. Transfer to has been cancelled.
--- NOTE | 2020-02-16 21:28 | Internal Med Progress Note ---
Subjective Physician Name Moisés Richards Attending Physician Moisés Richards MD Current Medications Medications (Trade) Dose Ordered Sig/Celia Route PRN Reason Start Time Stop Time Status Last Admin Dose Admin Acetaminophen (Tylenol) 650 mg Q4H PRN ORAL fever 02/13/20 13:30 03/14/20 13:29 Amylase/Lipase/ Protease (Zenpep) 2 ea THREE TIMES A DAY ORAL 02/16/20 13:00 05/16/20 12:59 02/16/20 17:49 Dextrose (Dextrose 50%) 25 ml Q30M PRN IV Hypoglycemia 02/13/20 13:30 05/13/20 13:29 Dextrose (Dextrose 50%) 50 ml Q30M PRN IV Hypoglycemia 02/13/20 13:30 05/13/20 13:29 Dextrose/ Electrolytes 1,000 ml @ 100 mls/hr Q10H IV 02/14/20 10:30 03/15/20 10:29 02/16/20 03:47 Diphenhydramine HCl (Benadryl) 25 mg Q6H PRN ORAL Itching/Pruritis 02/13/20 13:30 03/14/20 13:29 Docusate Sodium (Colace) 100 mg THREE TIMES A DAY ORAL 02/15/20 13:00 03/16/20 12:59 02/16/20 17:49 Folic Acid 1 mg/ Magnesium Sulfate 2000 mg/ Multivitamins 10 ml/Sodium Chloride 1,014.2 ml @ 125 mls/ hr Q24H IV 02/14/20 15:00 03/15/20 14:59 02/16/20 16:28 Lactulose (Cephulac) 30 gm THREE TIMES A DAY ORAL 02/15/20 13:00 03/16/20 12:59 02/15/20 17:48 Lorazepam (Ativan 2mg/ml 1ml) 0.5 mg Q4H PRN IV For Anxiety 02/13/20 13:30 02/20/20 13:29 02/14/20 21:46 Metoclopramide HCl (Reglan) 10 mg Q6H PRN IVP servere nauasea 02/13/20 13:30 03/14/20 13:29 Mineral Oil (Fleet's Mineral Oil Enema) 133 ml EVERY OTHER DAY RECTAL 02/17/20 09:00 03/18/20 08:59 Morphine Sulfate (Morphine Sulfate) 2 mg EVERY 4 HOURS PRN IVP Moderate Pain (Pain Scale 4-6) 02/13/20 13:30 02/20/20 13:29 02/14/20 08:21 Morphine Sulfate (Morphine Sulfate) 6 mg Q3H PRN IVP Severe Pain (Pain Scale 7-10) 02/15/20 11:59 02/22/20 11:58 02/16/20 16:30 Nitroglycerin (Ntg) 0.4 mg Q5M X 3 DOSES PRN SL Prn Chest Pain 02/13/20 13:30 03/14/20 13:29 Ondansetron HCl (Zofran) 4 mg Q6H PRN IVP Nausea & Vomiting 02/13/20 13:30 03/14/20 13:29 Pantoprazole (Protonix) 40 mg DAILY IV 02/13/20 14:56 03/14/20 14:55 02/16/20 08:31 Piperacillin Sod/ Tazobactam Sod 3.375 gm/Sodium Chloride 110 ml @ 27.5 mls/hr Q8H IVPB 02/14/20 10:00 02/21/20 09:59 02/16/20 17:49 Polyethylene Glycol (Miralax) 17 gm HSPRN PRN ORAL Constipation 02/13/20 13:30 03/14/20 13:29 Promethazine HCl (Phenergan) 25 mg Q6H PRN IM Refractory N/V 02/13/20 13:30 03/14/20 13:29 Temazepam (Restoril) 15 mg HSPRN PRN ORAL Insomnia 02/13/20 13:30 02/20/20 13:29 02/15/20 22:09 Thiamine HCl 100 mg/Dextrose 56 ml @ 112 mls/hr Q24H IVPB 02/14/20 15:00 03/15/20 14:59 02/16/20 16:28 Allergies: Coded Allergies: IBUPROFEN (Unverified Allergy, Unknown, 02/13/20) ASPIRIN (Verified Adverse Reaction, Mild, ULCERS, 08/16/11) NAPROXEN (Verified Adverse Reaction, Mild, ULCERS, 05/19/12) NSAIDS (NON-STEROIDAL ANTI-INFLAMMA (Verified Adverse Reaction, Mild, ULCERS, 08/16/11) Subjective awake, alert, responsive. Objective Last Vital Signs Date Time Temp Pulse Resp B/P (MAP) Pulse Ox O2 Delivery O2 Flow Rate FiO2 02/16/20 16:00 98.6 74 20 158/89 (112) 98 02/16/20 09:00 Room Air Laboratory Tests Test 02/16/20 04:40 White Blood Count 7.7 K/UL (4.8-10.8) Red Blood Count 3.59 M/UL (4.20-5.40) L Hemoglobin 11.3 G/DL (12.0-16.0) L Hematocrit 33.7 % (37.0-47.0) L Mean Corpuscular Volume 94 FL (80-99) Mean Corpuscular Hemoglobin 31.6 PG (27.0-31.0) H Mean Corpuscular Hemoglobin Concent 33.6 G/DL (32.0-36.0) Red Cell Distribution Width 15.8 % (11.6-14.8) H Platelet Count 314 K/UL (150-450) Mean Platelet Volume 4.7 FL (6.5-10.1) L Neutrophils (%) (Auto) 55.0 % (45.0-75.0) Lymphocytes (%) (Auto) 23.3 % (20.0-45.0) Monocytes (%) (Auto) 17.8 % (1.0-10.0) H Eosinophils (%) (Auto) 2.6 % (0.0-3.0) Basophils (%) (Auto) 1.4 % (0.0-2.0) Sodium Level 137 MMOL/L (136-145) Potassium Level 3.6 MMOL/L (3.5-5.1) Chloride Level 100 MMOL/L (98-107) Carbon Dioxide Level 28 MMOL/L (21-32) Anion Gap 9 mmol/L (5-15) Blood Urea Nitrogen 5 mg/dL (7-18) L Creatinine 0.8 MG/DL (0.55-1.30) Estimat Glomerular Filtration Rate > 60 mL/min (>60) Glucose Level 100 MG/DL (74-106) Calcium Level 9.3 MG/DL (8.5-10.1) Total Bilirubin 0.8 MG/DL (0.2-1.0) Aspartate Amino Transf (AST/SGOT) 97 U/L (15-37) H Alanine Aminotransferase (ALT/SGPT) 79 U/L (12-78) H Alkaline Phosphatase 126 U/L (46-116) H Total Protein 8.1 G/DL (6.4-8.2) Albumin 3.2 G/DL (3.4-5.0) L Globulin 4.9 g/dL Albumin/Globulin Ratio 0.7 (1.0-2.7) L Intake and Output 02/15/20 02/16/20 19:00 07:00 Intake Total 600 ml Balance 600 ml Intake Oral 600 ml # Voids 5 3 Objective Physical Exam General: No acute distress, awake and alert HEENT: NCAT, sclera anicteric, PERRL, EOMI. Neck: Supple, no significant jugular venous distention, Lungs: Good inspiratory effort, no Wheeze or Rales. Heart: Regular rate and rhythm, normal S1/S2, no murmurs Abdomen: soft, +tender, nondistended. Normoactive bowel sounds. / Rectal: Refused and deferred. Extremities: No Cyanosis , clubbing or edema. Neuro: A&O x 3, Able to move all extremities Skin: warm, no rashes or lesions Psych: Normal mood and affect Assessment/Plan Assessment/Plan ASSESSMENT: This is a 49-year-old female. 1. Splenic rupture. 2. Left upper quadrant abdominal pain. 3. Severe anemia. 4. Melena. 5. Hypertension. 6. Alcohol dependence. 7. Alcoholic steatosis. TREATMENT: 1. Splenic rupture. A General Surgery consultation has been obtained with Dr. Jason Cross. We will follow recommendations of Surgery. Patient may require splenectomy during this hospitalization. Serial CBCs will be performed. 2. Left upper quadrant abdominal pain. This is probably secondary to splenic rupture as above. 3. Severe anemia. This is probably secondary to splenic rupture as above. Peptic ulcer disease and bleeding gastric ulcer cannot be excluded. A Gastroenterology consultation has been obtained with Dr. Valerio Elias. 4. Melena. This may be secondary to gastrointestinal hemorrhage. Patient has been started empirically on Protonix. 5. Hypertension. Patient is currently hypotensive. Hold antihypertensive medications. 6. Alcohol dependence. 7. Alcoholic steatosis. COVID-19 test negative Consider transfer to [facility]. Moisés Richards MD Feb 16, 2020 21:28
[2020-02-17] MEDS: LORazepam Inj 2mg/ml 1ml IV PRN (00:01)
[2020-02-17 04:00] VITALS: BP 148/96
[2020-02-17] MEDS: Piperacillin/Tazobactam 3.375 GM in NS 110 ML IVPB SCH ×3 (04:01→17:37)
[2020-02-17] MEDS: Morphine Sulfate 4mg/ml Inj (IV USE ONLY) IVP PRN ×2 (04:02→21:51)
--- NOTE | 2020-02-17 07:21 | NUR ---
HAND-OFF: Report given to JONNA Caro.
--- NOTE | 2020-02-17 07:22 | General Progress Note ---
Assessment/Plan Problem List: (1) Fatty liver ICD Codes: K76.0 - Fatty (change of) liver, not elsewhere classified SNOMED: 805813881 (2) Elevated LFTs ICD Codes: R79.89 - Other specified abnormal findings of blood chemistry SNOMED: 935695192, 966149958 (3) Diverticulosis ICD Codes: K57.90 - Diverticulosis of intestine, part unspecified, without perforation or abscess without bleeding SNOMED: 594134121 (4) Anemia ICD Codes: D64.9 - Anemia, unspecified SNOMED: 970421981 (5) h/o panceatitis (6) History of gastric bypass ICD Codes: Z98.84 - Bariatric surgery status SNOMED: 478778505 (7) ETOH abuse ICD Codes: F10.10 - Alcohol abuse, uncomplicated SNOMED: 49783402 (8) Ovarian cyst ICD Codes: N83.20 - Unspecified ovarian cysts SNOMED: 76169086 (9) Alcohol intoxication ICD Codes: F10.129 - Alcoholabuse with intoxication, unspecified SNOMED: 61931441 (10) Abdominal pain ICD Codes: R10.9 - Unspecified abdominal pain SNOMED: 64815342 (11) Splenic rupture ICD Codes: S36.09XA - Other injury of spleen, initial encounter SNOMED: 320333818 Assessment/Plan: ppi fu H&H prn blood transfusion fu labs Creon on diet pending transfer to [facility] Limited/Unobtainable: Yes Allergies: Coded Allergies: IBUPROFEN (Unverified Allergy, Unknown, 02/13/20) ASPIRIN (Verified Adverse Reaction, Mild, ULCERS, 08/16/11) NAPROXEN (Verified Adverse Reaction, Mild, ULCERS, 05/19/12) NSAIDS (NON-STEROIDAL ANTI-INFLAMMA (Verified Adverse Reaction, Mild, ULCERS, 08/16/11) Objective Last 24 Hour Vital Signs Date Time Temp Pulse Resp B/P (MAP) Pulse Ox O2 Delivery O2 Flow Rate FiO2 02/17/20 05:30 78 02/17/20 05:00 75 02/17/20 04:32 98.6 02/17/20 04:00 98.5 85 18 148/96 (113) 96 02/16/20 21:00 Room Air 02/16/20 20:00 99.0 85 20 150/90 (110) 98 02/16/20 16:00 98.6 74 20 158/89 (112) 98 02/16/20 15:51 75 02/16/20 12:00 98.5 69 20 162/97 (118) 98 02/16/20 11:51 70 02/16/20 09:00 Room Air 02/16/20 08:41 79 02/16/20 08:00 99.0 93 20 152/88 (109) 98 Intake and Output 02/16/20 02/17/20 19:00 07:00 Intake Total 1000 ml Balance 1000 ml Intake Oral 1000 ml # Voids 6 3 Laboratory Tests 02/17/20 06:01: White Blood Count [Pending], Red Blood Count [Pending], Hemoglobin [Pending], Hematocrit [Pending], Mean Corpuscular Volume [Pending], Mean Corpuscular Hemoglobin [Pending], Mean Corpuscular Hemoglobin Concent [Pending], Red Cell Distribution Width [Pending], Platelet Count [Pending], Mean Platelet Volume [ Pending], Neutrophils (%) (Auto) [Pending], Lymphocytes (%) (Auto) [Pending], Monocytes (%) (Auto) [Pending], Eosinophils (%) (Auto) [Pending], Basophils (%) (Auto) [Pending], Erythrocyte Sedimentation Rate [Pending], Prothrombin Time [ Pending], Prothromb Time International Ratio [Pending], Activated Partial Thromboplast Time [Pending], Sodium Level [Pending], Potassium Level [Pending], Chloride Level [Pending], Carbon Dioxide Level [Pending], Blood Urea Nitrogen [ Pending], Creatinine [Pending], Estimat Glomerular Filtration Rate [Pending], Glucose Level [Pending], Calcium Level [Pending], Total Bilirubin [Pending], Aspartate Amino Transf (AST/SGOT) [Pending], Alanine Aminotransferase (ALT/SGPT ) [Pending], Alkaline Phosphatase [Pending], C-Reactive Protein, Quantitative [ Pending], Total Protein [Pending], Albumin [Pending], Globulin [Pending], Amylase Level [Pending], Lipase [Pending] Height (Feet): 5 Height (Inches): 6.00 Weight (Pounds): 180 General Appearance: alert EENT: normal ENT inspection Neck: supple Cardiovascular: normal rate Respiratory/Chest: lungs clear Abdomen: normal bowel sounds, non tender, soft Extremities: non-tender Valerio Elias MD Feb 17, 2020 07:21
[2020-02-17 07:39] LABS: INR 0.9 (0.9-1.1)
[2020-02-17 07:47] LABS: HEMATOCRIT 26.5 % (37.0-47.0); MEAN CORPUSCULAR VOLUME 94 FL (80-99); PLATELET COUNT 322 K/UL (150-450); RED BLOOD COUNT 2.83 M/UL (4.20-5.40); RED CELL DISTRIBUTION WIDTH 15.6 % (11.6-14.8); WHITE BLOOD COUNT 6.1 K/UL (4.8-10.8)
[2020-02-17 08:10] LABS: ALANINE AMINOTRANSFERASE 51 U/L (12-78); ALBUMIN 2.4 G/DL (3.4-5.0); ALBUMIN/GLOBULIN RATIO 0.6 (1.0-2.7); ALKALINE PHOSPHATASE 91 U/L (46-116); ANION GAP 8 mmol/L (5-15); ASPARTATE AMINO TRANSFERASE 54 U/L (15-37); BILIRUBIN,TOTAL 0.5 MG/DL (0.2-1.0); BLOOD UREA NITROGEN 10 mg/dL (7-18); CALCIUM 9.4 MG/DL (8.5-10.1); CARBON DIOXIDE 31 MMOL/L (21-32); CHLORIDE 99 MMOL/L (98-107); CREATININE 0.8 MG/DL (0.55-1.30); POTASSIUM 3.9 MMOL/L (3.5-5.1); SODIUM 138 MMOL/L (136-145)
[2020-02-17 08:20] VITALS: BP 133/96
[2020-02-17] MEDS: Pantoprazole Inj IV SCH (08:28)
[2020-02-17] MEDS: Lactulose 20gm/30ml UDC ORAL SCH ×3 (08:28→17:09)
[2020-02-17] MEDS: Docusate 100mg cap ORAL SCH ×3 (08:29→17:10)
[2020-02-17] MEDS: Fleet's Mineral Oil Enema RECTAL SCH (08:30)
[2020-02-17] MEDS: Pancrelipase Dr Cap ORAL SCH ×3 (08:30→17:10)
[2020-02-17] MEDS: Morphine Sulfate 2mg/ml Inj(IV/IM USE ONLY) IVP PRN ×2 (10:03→14:19)
--- NOTE | 2020-02-17 11:53 | Internal Med Progress Note ---
Subjective Date of Service: Feb 17, 2020 Physician Name Ford Sevilla Attending Physician Moisés Richards MD Current Medications Medications (Trade) Dose Ordered Sig/Celia Route PRN Reason Start Time Stop Time Status Last Admin Dose Admin Acetaminophen (Tylenol) 650 mg Q4H PRN ORAL fever 02/13/20 13:30 03/14/20 13:29 Amylase/Lipase/ Protease (Zenpep) 2 ea THREE TIMES A DAY ORAL 02/16/20 13:00 05/16/20 12:59 02/17/20 08:30 Dextrose (Dextrose 50%) 25 ml Q30M PRN IV Hypoglycemia 02/13/20 13:30 05/13/20 13:29 Dextrose (Dextrose 50%) 50 ml Q30M PRN IV Hypoglycemia 02/13/20 13:30 05/13/20 13:29 Dextrose/ Electrolytes 1,000 ml @ 100 mls/hr Q10H IV 02/14/20 10:30 03/15/20 10:29 02/17/20 04:02 Diphenhydramine HCl (Benadryl) 25 mg Q6H PRN ORAL Itching/Pruritis 02/13/20 13:30 03/14/20 13:29 Docusate Sodium (Colace) 100 mg THREE TIMES A DAY ORAL 02/15/20 13:00 03/16/20 12:59 02/17/20 08:29 Folic Acid 1 mg/ Magnesium Sulfate 2000 mg/ Multivitamins 10 ml/Sodium Chloride 1,014.2 ml @ 125 mls/ hr Q24H IV 02/14/20 15:00 03/15/20 14:59 02/16/20 16:28 Lactulose (Cephulac) 30 gm THREE TIMES A DAY ORAL 02/15/20 13:00 03/16/20 12:59 02/17/20 08:28 Lorazepam (Ativan 2mg/ml 1ml) 0.5 mg Q4H PRN IV For Anxiety 02/13/20 13:30 02/20/20 13:29 02/17/20 00:01 Metoclopramide HCl (Reglan) 10 mg Q6H PRN IVP servere nauasea 02/13/20 13:30 03/14/20 13:29 Mineral Oil (Fleet's Mineral Oil Enema) 133 ml EVERY OTHER DAY RECTAL 02/17/20 09:00 03/18/20 08:59 Morphine Sulfate (Morphine Sulfate) 2 mg EVERY 4 HOURS PRN IVP Moderate Pain (Pain Scale 4-6) 02/13/20 13:30 02/20/20 13:29 02/17/20 10:03 Morphine Sulfate (Morphine Sulfate) 6 mg Q3H PRN IVP Severe Pain (Pain Scale 7-10) 02/15/20 11:59 02/22/20 11:58 02/17/20 04:02 Nitroglycerin (Ntg) 0.4 mg Q5M X 3 DOSES PRN SL Prn Chest Pain 02/13/20 13:30 03/14/20 13:29 Ondansetron HCl (Zofran) 4 mg Q6H PRN IVP Nausea & Vomiting 02/13/20 13:30 03/14/20 13:29 Pantoprazole (Protonix) 40 mg DAILY IV 02/13/20 14:56 03/14/20 14:55 02/17/20 08:28 Piperacillin Sod/ Tazobactam Sod 3.375 gm/Sodium Chloride 110 ml @ 27.5 mls/hr Q8H IVPB 02/14/20 10:00 02/21/20 09:59 02/17/20 10:02 Polyethylene Glycol (Miralax) 17 gm HSPRN PRN ORAL Constipation 02/13/20 13:30 03/14/20 13:29 Promethazine HCl (Phenergan) 25 mg Q6H PRN IM Refractory N/V 02/13/20 13:30 03/14/20 13:29 Temazepam (Restoril) 15 mg HSPRN PRN ORAL Insomnia 02/13/20 13:30 02/20/20 13:29 02/15/20 22:09 Thiamine HCl 100 mg/Dextrose 56 ml @ 112 mls/hr Q24H IVPB 02/14/20 15:00 03/15/20 14:59 02/16/20 16:28 Allergies: Coded Allergies: IBUPROFEN (Unverified Allergy, Unknown, 02/13/20) ASPIRIN (Verified Adverse Reaction, Mild, ULCERS, 08/16/11) NAPROXEN (Verified Adverse Reaction, Mild, ULCERS, 05/19/12) NSAIDS (NON-STEROIDAL ANTI-INFLAMMA (Verified Adverse Reaction, Mild, ULCERS, 08/16/11) ROS Limited/Unobtainable: No Constitutional: Reports: no symptoms HEENT: Reports: no symptoms Cardiovascular: Reports: no symptoms Respiratory: Reports: no symptoms Gastrointestinal/Abdominal: Reports: no symptoms Genitourinary: Reports: no symptoms Neurologic/Psychiatric: Reports: no symptoms Subjective 49 YO F admitted with LUQ pain. Now splenic rupture. Cover for Int Ceasar-DR Richards Objective Last Vital Signs Date Time Temp Pulse Resp B/P (MAP) Pulse Ox O2 Delivery O2 Flow Rate FiO2 02/17/20 10:33 98.5 02/17/20 08:20 85 18 133/96 (108) 96 02/16/20 21:00 Room Air Laboratory Tests Test 02/17/20 06:01 White Blood Count 6.1 K/UL (4.8-10.8) Red Blood Count 2.83 M/UL (4.20-5.40) L Hemoglobin 9.0 G/DL (12.0-16.0) L Hematocrit 26.5 % (37.0-47.0) L Mean Corpuscular Volume 94 FL (80-99) Mean Corpuscular Hemoglobin 31.8 PG (27.0-31.0) H Mean Corpuscular Hemoglobin Concent 34.0 G/DL (32.0-36.0) Red Cell Distribution Width 15.6 % (11.6-14.8) H Platelet Count 322 K/UL (150-450) Mean Platelet Volume 4.7 FL (6.5-10.1) L Neutrophils (%) (Auto) % (45.0-75.0) Lymphocytes (%) (Auto) % (20.0-45.0) Monocytes (%) (Auto) % (1.0-10.0) Eosinophils (%) (Auto) % (0.0-3.0) Basophils (%) (Auto) % (0.0-2.0) Neutrophils % (Manual) Pending Lymphocytes % (Manual) Pending Platelet Estimate Pending Platelet Morphology Pending Erythrocyte Sedimentation Rate 89 MM/HR (0-20) H Prothrombin Time 9.6 SEC (9.30-11.50) Prothromb Time International Ratio 0.9 (0.9-1.1) Activated Partial Thromboplast Time 31 SEC (23-33) Sodium Level 138 MMOL/L (136-145) Potassium Level 3.9 MMOL/L (3.5-5.1) Chloride Level 99 MMOL/L (98-107) Carbon Dioxide Level 31 MMOL/L (21-32) Anion Gap 8 mmol/L (5-15) Blood Urea Nitrogen 10 mg/dL (7-18) Creatinine 0.8 MG/DL (0.55-1.30) Estimat Glomerular Filtration Rate > 60 mL/min (>60) Glucose Level 138 MG/DL (74-106) H Calcium Level 9.4 MG/DL (8.5-10.1) Total Bilirubin 0.5 MG/DL (0.2-1.0) Aspartate Amino Transf (AST/SGOT) 54 U/L (15-37) H Alanine Aminotransferase (ALT/SGPT) 51 U/L (12-78) Alkaline Phosphatase 91 U/L (46-116) C-Reactive Protein, Quantitative 6.3 mg/dL (0.00-0.90) H Total Protein 6.3 G/DL (6.4-8.2) L Albumin 2.4 G/DL (3.4-5.0) L Globulin 3.9 g/dL Albumin/Globulin Ratio 0.6 (1.0-2.7) L Amylase Level 62 U/L (25-115) Lipase 99 U/L (73-393) Intake and Output 02/16/20 02/17/20 19:00 07:00 Intake Total 1000 ml Balance 1000 ml Intake Oral 1000 ml # Voids 6 3 Objective PHYSICAL EXAMINATION: GENERAL: Patient is well-developed, well-nourished female, in no apparent distress. HEENT: Eyes, pupils are equal and responsive to light and accommodation. Extraocular movements are intact. NECK: Supple without lymphadenopathy. CHEST: Lungs are clear to auscultation bilaterally without wheezes or rales. CARDIOVASCULAR: Tachycardic, regular rhythm. S1, S2 normal without murmurs, rubs, or gallops. ABDOMEN: Soft, diffusely tender with decreased bowel sounds. No hepatosplenomegaly. Currently no rebound. There is voluntary guarding to the left upper quadrant to palpation. RECTAL/GENITAL: Not performed. NEUROLOGIC: Cranial nerves II through XII are grossly intact without focal deficits. Motor strength is 5/5 bilaterally. Deep tendon reflexes are 2+ plantar. Assessment/Plan Assessment/Plan ASSESSMENT: This is a 49-year-old female. 1. Splenic rupture. 2. Left upper quadrant abdominal pain. 3. Severe anemia. 4. Melena. 5. Hypertension. 6. Alcohol dependence. 7. Alcoholic steatosis. TREATMENT: 1. Splenic rupture. A General Surgery consultation has been obtained with Dr. Jason Cross. We will follow recommendations of Surgery. Possible splenectomy if anemia worsens per surgery 2. Left upper quadrant abdominal pain. This is probably secondary to splenic rupture as above. 3. Severe anemia. This is probably secondary to splenic rupture as above. Peptic ulcer disease and bleeding gastric ulcer cannot be excluded. A Gastroenterology consultation has been obtained with Dr. Valerio Elias. 4. Melena. This may be secondary to gastrointestinal hemorrhage. Patient has been started empirically on Protonix. 5. Hypertension. Patient is currently hypotensive. Hold antihypertensive medications. 6. Alcohol dependence. 7. Alcoholic steatosis. 8. Transfer to [facility] when bed available Ford Sevilla MD Feb 17, 2020 11:53
[2020-02-17 12:00] VITALS: BP 130/96
[2020-02-17] MEDS ORDERED: Tubing IV Secondary IV ONE (12:54)
[2020-02-17] MEDS ORDERED: Morphine Sulfate 4mg/ml Inj (IV USE ONLY) IVP SCH (15:00)
[2020-02-17 16:00] VITALS: BP 145/87
--- NOTE | 2020-02-17 19:29 | Surgery Progress Note ---
Surgery Progress Note Subjective Additional Comments h/h drop covid pending ? angela transfer repeat h/h now discussed with patient. will consider repeat CT as still having abd pain left side no n/v/f/c tolerating diet Objective Last 24 Hour Vital Signs Date Time Temp Pulse Resp B/P (MAP) Pulse Ox O2 Delivery O2 Flow Rate FiO2 02/17/20 16:13 89 02/17/20 16:00 99.7 82 18 145/87 (106) 96 02/17/20 15:39 99.7 02/17/20 14:49 98.5 02/17/20 12:00 98.5 85 18 130/96 (107) 96 02/17/20 12:00 72 02/17/20 09:00 Room Air 02/17/20 08:20 98.5 85 18 133/96 (108) 96 02/17/20 08:00 76 02/17/20 05:30 78 02/17/20 05:00 75 02/17/20 04:32 98.6 02/17/20 04:00 98.5 85 18 148/96 (113) 96 02/16/20 21:00 Room Air 02/16/20 20:00 99.0 85 20 150/90 (110) 98 I&O Intake and Output 02/16/20 02/17/20 19:00 07:00 Intake Total 1000 ml Balance 1000 ml Intake Oral 1000 ml # Voids 6 3 Cardiovascular: RSR Respiratory: clear Abdomen: soft, tenderness, present bowel sounds, non-distended Extremities: no edema, no tenderness, no cyanosis Laboratory Tests Test 02/17/20 06:01 White Blood Count 6.1 K/UL (4.8-10.8) Red Blood Count 2.83 M/UL (4.20-5.40) L Hemoglobin 9.0 G/DL (12.0-16.0) L Hematocrit 26.5 % (37.0-47.0) L Mean Corpuscular Volume 94 FL (80-99) Mean Corpuscular Hemoglobin 31.8 PG (27.0-31.0) H Mean Corpuscular Hemoglobin Concent 34.0 G/DL (32.0-36.0) Red Cell Distribution Width 15.6 % (11.6-14.8) H Platelet Count 322 K/UL (150-450) Mean Platelet Volume 4.7 FL (6.5-10.1) L Neutrophils (%) (Auto) % (45.0-75.0) Lymphocytes (%) (Auto) % (20.0-45.0) Monocytes (%) (Auto) % (1.0-10.0) Eosinophils (%) (Auto) % (0.0-3.0) Basophils (%) (Auto) % (0.0-2.0) Differential Total Cells Counted 100 Neutrophils % (Manual) 51 % (45-75) Lymphocytes % (Manual) 24 % (20-45) Monocytes % (Manual) 19 % (1-10) H Eosinophils % (Manual) 4 % (0-3) H Basophils % (Manual) 2 % (0-2) Band Neutrophils 0 % (0-8) Platelet Estimate Adequate Platelet Morphology Normal Hypochromasia 2+ Anisocytosis 1+ Erythrocyte Sedimentation Rate 89 MM/HR (0-20) H Prothrombin Time 9.6 SEC (9.30-11.50) Prothromb Time International Ratio 0.9 (0.9-1.1) Activated Partial Thromboplast Time 31 SEC (23-33) Sodium Level 138 MMOL/L (136-145) Potassium Level 3.9 MMOL/L (3.5-5.1) Chloride Level 99 MMOL/L (98-107) Carbon Dioxide Level 31 MMOL/L (21-32) Anion Gap 8 mmol/L (5-15) Blood Urea Nitrogen 10 mg/dL (7-18) Creatinine 0.8 MG/DL (0.55-1.30) Estimat Glomerular Filtration Rate > 60 mL/min (>60) Glucose Level 138 MG/DL (74-106) H Calcium Level 9.4 MG/DL (8.5-10.1) Total Bilirubin 0.5 MG/DL (0.2-1.0) Aspartate Amino Transf (AST/SGOT) 54 U/L (15-37) H Alanine Aminotransferase (ALT/SGPT) 51 U/L (12-78) Alkaline Phosphatase 91 U/L (46-116) C-Reactive Protein, Quantitative 6.3 mg/dL (0.00-0.90) H Total Protein 6.3 G/DL (6.4-8.2) L Albumin 2.4 G/DL (3.4-5.0) L Globulin 3.9 g/dL Albumin/Globulin Ratio 0.6 (1.0-2.7) L Amylase Level 62 U/L (25-115) Lipase 99 U/L (73-393) Plan Problems: (1) Splenic rupture Assessment & Plan: The spleen is markedly abnormal. The normally enhancing spleen demonstrates distortion of the anatomy and is surrounded by a large area of mixed attenuation which measures approximately 9 x 7 x 9.5 cm. High attenuation fluid is also seen within the left paracolic gutter as well as is under the left hemidiaphragm and adjacent to the left hepatic lobe. A small sliver of high attenuation fluid is also seen over the dome of the right hepatic lobe and there is a moderate amount of the same in the pelvis.. There is some infiltration of the left upper quadrant retroperitoneal and omental fat. The enhancing portion of the spleen for the most part enhances normally, although there is some heterogeneity to the enhancement of the lower pole. This is a new finding. Previously the spleen was normal in size, attenuation, and enhancement. The splenic vein is diffusely small in caliber, and patency near the hilum is uncertain. Previously this was larger in caliber. The previously demonstrated acute pancreatitis changes have resolved. The liver is mildly enlarged and is hypoattenuating. Again demonstrated are a few subcentimeter low-attenuation lesions which are too small to characterize. These are somewhat less apparent than on the prior study. The gallbladder is mildly distended. No biliary ductal dilatation. The pancreas is atrophic and contains numerous calcifications. The kidneys are unremarkable. No retroperitoneal or mesenteric mass or adenopathy. No pelvic mass or adenopathy. The appendix is normal. There is colonic diverticulosis. No evidence of acute diverticulitis. No small bowel distention. No free or loculated intraperitoneal gas or fluid is evident. There is evidence of prior gastric bypass surgery. The lung bases demonstrate mosaic perfusion which is not evident on the prior exam, and there is borderline groundglass opacity in the left costophrenic sulcus. The bones are unremarkable. Impression: Markedly abnormal spleen, surrounded by 9 x 7 x 9.5 cm area of mixed attenuation, as well as high attenuation fluid, presumably blood, within the peritoneal space. Findings most likely represent splenic rupture with large subcapsular hematoma and associated hemoperitoneum. Note also uncertain patency of the splenic vein near the hilum as well as evidence of a few small splenic hilar varices. This is new since the previous study Previously reported acute pancreatitis changes have resolved. There is now pancreatic atrophy and extensive calcification which is a new finding and presumably a sequela of the previously demonstrated acute pancreatitis Enlarged fatty liver, also previously described Mosaic perfusion at the lung bases with some borderline groundglass opacity in the left costophrenic sulcus. Findings are nonspecific, most likely represent dependent atelectatic changes but other etiologies also possible. Colonic diverticulosis. No evidence of acute diverticulitis (2) Abdominal pain Assessment & Plan: abdominal pain for [address] with possible splenic ruptures anemia leukocytosis no active extravasation noted HD stable exam with discomfort but no peritonitis will need to monitor closely admit for monitoring npo iv fluids tend h/h abd exams t/s prbc discussed with patient. if h/h drops, worsening pain, deterioration will need to proceed to OR for exploration otherwise will monitor closely with resuscitation stable trend h/h hold surgical intervention states feeling better will monitor closely thank you will follow with recs improved states pain luq from coughing just prior to incident. no trauma denies but states massive coughing prior to this h/h stable start diet repeat h/h possible repeat CT in [facility] Feb 17, 2020 19:29
--- NOTE | 2020-02-17 19:32 | NUR ---
NURSE NOTES: Received report from JONNA Caro. Patient is awake lying semi-kaye's; resting comfortably. No signs of acute distress noted; complains of pain. AOx4; able to make needs known. Ambulates independently. Checked IV site; patent and flushed. No erythema, bleeding, or infiltration noted. Bed at lowest position, brakes on, siderails up x2. Call light within reach. Will continue to monitor.
[2020-02-17 20:00] VITALS: BP 139/68
--- NOTE | 2020-02-17 20:15 | Infectious Diseases Prog Note ---
Assessment/Plan Assessment/Plan Subjective fever Mild leukocytosis Transaminitis CAP r/o COVID SARS CoV PCR negative CT chest: Mosaic perfusion at lung bases with some borderline groundglass opacity in the left costophrenic sulcus. Findings are nonspecific, most likely represent dependent atelectatic changes but other etiologies also possible. Splenic rupture with large subcapsular hematoma and hemoperitoneum 02/12 CT A/P: Markedly abnormal spleen, surrounded by 9 x 7 x 9.5 cm area of mixed attenuation, as well as high attenuation fluid, presumably blood, within the peritoneal space. Findings most likely represent splenic rupture with large subcapsular hematoma and associated hemoperitoneum. Note also uncertain patency of the splenic vein near the hilum as well as evidence of a few small splenic hilar varices. This is new since the previous study. Previously reported acute pancreatitis changes have resolved. There is now pancreatic atrophy and extensive calcification which is a new finding and presumably a sequela of the previously demonstrated acute pancreatitis. Enlarged fatty liver, also previously described. Colonic diverticulosis. No evidence of acute diverticulitis PUD HTN EtOH abuse Depression Plan: continue zosyn #5 f/u second COVID swab. while fevers most likely 2/2 splenic rupture, pt reported cough to other providers and CT chest with GGO. continue COVID isolation monitor temp and CBC monitor resp status obtain two sets of bcx if T>100.4 pt is ok to be transferred while on isolation DW RN Subjective Allergies: Coded Allergies: IBUPROFEN (Unverified Allergy, Unknown, 02/13/20) ASPIRIN (Verified Adverse Reaction, Mild, ULCERS, 08/16/11) NAPROXEN (Verified Adverse Reaction, Mild, ULCERS, 05/19/12) NSAIDS (NON-STEROIDAL ANTI-INFLAMMA (Verified Adverse Reaction, Mild, ULCERS, 08/16/11) Subjective Afebrile. states feels weak Objective Vital Signs Last 24 Hour Vital Signs Date Time Temp Pulse Resp B/P (MAP) Pulse Ox O2 Delivery O2 Flow Rate FiO2 02/17/20 16:13 89 02/17/20 16:00 99.7 82 18 145/87 (106) 96 02/17/20 15:39 99.7 02/17/20 14:49 98.5 02/17/20 12:00 98.5 85 18 130/96 (107) 96 02/17/20 12:00 72 02/17/20 09:00 Room Air 02/17/20 08:20 98.5 85 18 133/96 (108) 96 02/17/20 08:00 76 02/17/20 05:30 78 02/17/20 05:00 75 02/17/20 04:32 98.6 02/17/20 04:00 98.5 85 18 148/96 (113) 96 02/16/20 21:00 Room Air Height (Feet): 5 Height (Inches): 6.00 Weight (Pounds): 180 Objective Gen: NAD. well nourished. well hydrated CV: RRR. S1+S2. no rubs or gallop. Resp: RRR. no wheezes or crackles. equal chest rise. unlabored. Abd: soft. normoactive Bs+. L sided tenderness Laboratory Tests Test 02/17/20 06:01 White Blood Count 6.1 K/UL (4.8-10.8) Red Blood Count 2.83 M/UL (4.20-5.40) L Hemoglobin 9.0 G/DL (12.0-16.0) L Hematocrit 26.5 % (37.0-47.0) L Mean Corpuscular Volume 94 FL (80-99) Mean Corpuscular Hemoglobin 31.8 PG (27.0-31.0) H Mean Corpuscular Hemoglobin Concent 34.0 G/DL (32.0-36.0) Red Cell Distribution Width 15.6 % (11.6-14.8) H Platelet Count 322 K/UL (150-450) Mean Platelet Volume 4.7 FL (6.5-10.1) L Neutrophils (%) (Auto) % (45.0-75.0) Lymphocytes (%) (Auto) % (20.0-45.0) Monocytes (%) (Auto) % (1.0-10.0) Eosinophils (%) (Auto) % (0.0-3.0) Basophils (%) (Auto) % (0.0-2.0) Differential Total Cells Counted 100 Neutrophils % (Manual) 51 % (45-75) Lymphocytes % (Manual) 24 % (20-45) Monocytes % (Manual) 19 % (1-10) H Eosinophils % (Manual) 4 % (0-3) H Basophils % (Manual) 2 % (0-2) Band Neutrophils 0 % (0-8) Platelet Estimate Adequate Platelet Morphology Normal Hypochromasia 2+ Anisocytosis 1+ Erythrocyte Sedimentation Rate 89 MM/HR (0-20) H Prothrombin Time 9.6 SEC (9.30-11.50) Prothromb Time International Ratio 0.9 (0.9-1.1) Activated Partial Thromboplast Time 31 SEC (23-33) Sodium Level 138 MMOL/L (136-145) Potassium Level 3.9 MMOL/L (3.5-5.1) Chloride Level 99 MMOL/L (98-107) Carbon Dioxide Level 31 MMOL/L (21-32) Anion Gap 8 mmol/L (5-15) Blood Urea Nitrogen 10 mg/dL (7-18) Creatinine 0.8 MG/DL (0.55-1.30) Estimat Glomerular Filtration Rate > 60 mL/min (>60) Glucose Level 138 MG/DL (74-106) H Calcium Level 9.4 MG/DL (8.5-10.1) Total Bilirubin 0.5 MG/DL (0.2-1.0) Aspartate Amino Transf (AST/SGOT) 54 U/L (15-37) H Alanine Aminotransferase (ALT/SGPT) 51 U/L (12-78) Alkaline Phosphatase 91 U/L (46-116) C-Reactive Protein, Quantitative 6.3 mg/dL (0.00-0.90) H Total Protein 6.3 G/DL (6.4-8.2) L Albumin 2.4 G/DL (3.4-5.0) L Globulin 3.9 g/dL Albumin/Globulin Ratio 0.6 (1.0-2.7) L Amylase Level 62 U/L (25-115) Lipase 99 U/L (73-393) Current Medications Medications (Trade) Dose Ordered Sig/Celia Route PRN Reason Start Time Stop Time Status Last Admin Dose Admin Acetaminophen (Tylenol) 650 mg Q4H PRN ORAL fever 02/13/20 13:30 03/14/20 13:29 Amylase/Lipase/ Protease (Zenpep) 2 ea THREE TIMES A DAY ORAL 02/16/20 13:00 05/16/20 12:59 02/17/20 17:10 Dextrose (Dextrose 50%) 25 ml Q30M PRN IV Hypoglycemia 02/13/20 13:30 05/13/20 13:29 Dextrose (Dextrose 50%) 50 ml Q30M PRN IV Hypoglycemia 02/13/20 13:30 05/13/20 13:29 Diphenhydramine HCl (Benadryl) 25 mg Q6H PRN ORAL Itching/Pruritis 02/13/20 13:30 03/14/20 13:29 Docusate Sodium (Colace) 100 mg THREE TIMES A DAY ORAL 02/15/20 13:00 03/16/20 12:59 02/17/20 17:10 Lactulose (Cephulac) 30 gm THREE TIMES A DAY ORAL 02/15/20 13:00 03/16/20 12:59 02/17/20 17:09 Lorazepam (Ativan 2mg/ml 1ml) 0.5 mg Q4H PRN IV For Anxiety 02/13/20 13:30 02/20/20 13:29 02/17/20 00:01 Metoclopramide HCl (Reglan) 10 mg Q6H PRN IVP servere nauasea 02/13/20 13:30 03/14/20 13:29 Mineral Oil (Fleet's Mineral Oil Enema) 133 ml EVERY OTHER DAY RECTAL 02/17/20 09:00 03/18/20 08:59 Morphine Sulfate (Morphine Sulfate) 2 mg EVERY 4 HOURS PRN IVP Moderate Pain (Pain Scale 4-6) 02/13/20 13:30 02/20/20 13:29 02/17/20 14:19 Morphine Sulfate (Morphine Sulfate) 6 mg Q3H PRN IVP Severe Pain (Pain Scale 7-10) 02/15/20 11:59 02/22/20 11:58 02/17/20 04:02 Nitroglycerin (Ntg) 0.4 mg Q5M X 3 DOSES PRN SL Prn Chest Pain 02/13/20 13:30 03/14/20 13:29 Ondansetron HCl (Zofran) 4 mg Q6H PRN IVP Nausea & Vomiting 02/13/20 13:30 03/14/20 13:29 Pantoprazole (Protonix) 40 mg DAILY IV 02/13/20 14:56 03/14/20 14:55 02/17/20 08:28 Piperacillin Sod/ Tazobactam Sod 3.375 gm/Sodium Chloride 110 ml @ 27.5 mls/hr Q8H IVPB 02/14/20 10:00 02/21/20 09:59 02/17/20 17:37 Polyethylene Glycol (Miralax) 17 gm HSPRN PRN ORAL Constipation 02/13/20 13:30 03/14/20 13:29 Promethazine HCl (Phenergan) 25 mg Q6H PRN IM Refractory N/V 02/13/20 13:30 03/14/20 13:29 Temazepam (Restoril) 15 mg HSPRN PRN ORAL Insomnia 02/13/20 13:30 02/20/20 13:29 02/15/20 22:09 Donnie Cao MD Feb 17, 2020 20:15
[2020-02-17 20:38] LABS: BASOPHILS % (AUTO) 2.5 % (0.0-2.0); EOSINOPHILS % (AUTO) 3.3 % (0.0-3.0); HEMATOCRIT 30.6 % (37.0-47.0); HEMOGLOBIN 9.7 G/DL (12.0-16.0); LYMPHOCYTES % (AUTO) 21.6 % (20.0-45.0); MEAN CORPUSCULAR VOLUME 99 FL (80-99); MONOCYTES % (AUTO) 18.4 % (1.0-10.0); NEUTROPHILS % (AUTO) 54.2 % (45.0-75.0); PLATELET COUNT 374 K/UL (150-450); RED BLOOD COUNT 3.09 M/UL (4.20-5.40); RED CELL DISTRIBUTION WIDTH 17.3 % (11.6-14.8)
[2020-02-18] VITALS: BP 160/99
[2020-02-18] MEDS: Morphine Sulfate 4mg/ml Inj (IV USE ONLY) IVP PRN ×7 (01:00→22:40)
[2020-02-18] MEDS: Piperacillin/Tazobactam 3.375 GM in NS 110 ML IVPB SCH ×3 (01:52→17:25)
[2020-02-18] MEDS: LORazepam Inj 2mg/ml 1ml IV PRN (02:13)
[2020-02-18 04:00] VITALS: BP 139/66
--- NOTE | 2020-02-18 06:31 | General Progress Note ---
Assessment/Plan Problem List: (1) Fatty liver ICD Codes: K76.0 - Fatty (change of) liver, not elsewhere classified SNOMED: 345430088 (2) Elevated LFTs ICD Codes: R79.89 - Other specified abnormal findings of blood chemistry SNOMED: 338132841, 304955226 (3) Diverticulosis ICD Codes: K57.90 - Diverticulosis of intestine, part unspecified, without perforation or abscess without bleeding SNOMED: 961348813 (4) Anemia ICD Codes: D64.9 - Anemia, unspecified SNOMED: 356598680 (5) h/o panceatitis (6) History of gastric bypass ICD Codes: Z98.84 - Bariatric surgery status SNOMED: 916943332 (7) ETOH abuse ICD Codes: F10.10 - Alcohol abuse, uncomplicated SNOMED: 73479877 (8) Ovarian cyst ICD Codes: N83.20 - Unspecified ovarian cysts SNOMED: 56090786 (9) Alcohol intoxication ICD Codes: F10.129 - Alcoholabuse with intoxication, unspecified SNOMED: 55172577 (10) Abdominal pain ICD Codes: R10.9 - Unspecified abdominal pain SNOMED: 03258160 (11) Splenic rupture ICD Codes: S36.09XA - Other injury of spleen, initial encounter SNOMED: 190667769 Assessment/Plan: ppi fu H&H prn blood transfusion fu labs Creon on diet pending transfer to [facility] Limited/Unobtainable: No Allergies: Coded Allergies: IBUPROFEN (Unverified Allergy, Unknown, 02/13/20) ASPIRIN (Verified Adverse Reaction, Mild, ULCERS, 08/16/11) NAPROXEN (Verified Adverse Reaction, Mild, ULCERS, 05/19/12) NSAIDS (NON-STEROIDAL ANTI-INFLAMMA (Verified Adverse Reaction, Mild, ULCERS, 08/16/11) Objective Last 24 Hour Vital Signs Date Time Temp Pulse Resp B/P (MAP) Pulse Ox O2 Delivery O2 Flow Rate FiO2 02/18/20 00:00 99.3 81 18 160/99 (119) 96 02/17/20 21:00 Room Air 02/17/20 20:00 99.1 79 20 139/68 (91) 97 02/17/20 16:13 89 02/17/20 16:00 99.7 82 18 145/87 (106) 96 02/17/20 15:39 99.7 02/17/20 14:49 98.5 02/17/20 12:00 98.5 85 18 130/96 (107) 96 02/17/20 12:00 72 02/17/20 09:00 Room Air 02/17/20 08:20 98.5 85 18 133/96 (108) 96 02/17/20 08:00 76 Intake and Output 02/17/20 02/18/20 19:00 07:00 Intake Total 480 ml Balance 480 ml Intake Oral 480 ml # Bowel Movements 1 Laboratory Tests 02/17/20 19:00: White Blood Count 7.0, Red Blood Count 3.09L, Hemoglobin 9.7L, Hematocrit 30.6L , Mean Corpuscular Volume 99, Mean Corpuscular Hemoglobin 31.4H, Mean Corpuscular Hemoglobin Concent 31.7L, Red Cell Distribution Width 17.3H, Platelet Count 374, Mean Platelet Volume 5.3L, Neutrophils (%) (Auto) 54.2, Lymphocytes (%) (Auto) 21.6, Monocytes (%) (Auto) 18.4H, Eosinophils (%) (Auto) 3.3H, Basophils (%) (Auto) 2.5H Height (Feet): 5 Height (Inches): 6.00 Weight (Pounds): 180 General Appearance: no apparent distress EENT: normal ENT inspection Neck: normal alignment Cardiovascular: normal rate Respiratory/Chest: decreased breath sounds Abdomen: normal bowel sounds, soft, tender Extremities: non-tender Valerio Elias MD Feb 18, 2020 06:31
[2020-02-18 07:05] LABS: BASOPHILS % (AUTO) 1.6 % (0.0-2.0); HEMATOCRIT 25.8 % (37.0-47.0); HEMOGLOBIN 9.2 G/DL (12.0-16.0); LYMPHOCYTES % (AUTO) 20.8 % (20.0-45.0); MEAN CORPUSCULAR VOLUME 92 FL (80-99); MONOCYTES % (AUTO) 19.7 % (1.0-10.0); PLATELET COUNT 382 K/UL (150-450); RED BLOOD COUNT 2.81 M/UL (4.20-5.40); RED CELL DISTRIBUTION WIDTH 14.9 % (11.6-14.8); WHITE BLOOD COUNT 6.6 K/UL (4.8-10.8)
[2020-02-18 07:20] LABS: ALANINE AMINOTRANSFERASE 39 U/L (12-78); ALBUMIN 2.3 G/DL (3.4-5.0); ALBUMIN/GLOBULIN RATIO 0.6 (1.0-2.7); ALKALINE PHOSPHATASE 82 U/L (46-116); ANION GAP 4 mmol/L (5-15); ASPARTATE AMINO TRANSFERASE 39 U/L (15-37); BILIRUBIN,TOTAL 0.5 MG/DL (0.2-1.0); BLOOD UREA NITROGEN 7 mg/dL (7-18); CALCIUM 8.8 MG/DL (8.5-10.1); CARBON DIOXIDE 33 MMOL/L (21-32); CHLORIDE 103 MMOL/L (98-107); CREATININE 0.7 MG/DL (0.55-1.30); POTASSIUM 3.6 MMOL/L (3.5-5.1); SODIUM 140 MMOL/L (136-145)
--- NOTE | 2020-02-18 07:36 | NUR ---
HAND-OFF: Report given to JONNA Caro. Patient is asleep lying semi-kaye's; resting comfortably. In stable condition.
[2020-02-18 08:00] VITALS: BP 140/66
[2020-02-18] MEDS: Pancrelipase Dr Cap ORAL SCH ×3 (09:18→17:25)
[2020-02-18] MEDS: Docusate 100mg cap ORAL SCH ×3 (09:18→17:25)
[2020-02-18] MEDS: Lactulose 20gm/30ml UDC ORAL SCH ×3 (09:18→18:57)
[2020-02-18] MEDS: Pantoprazole Inj IV SCH (09:18)
[2020-02-18 11:43] VITALS: BP 127/66
--- NOTE | 2020-02-18 14:32 | Internal Med Progress Note ---
Subjective Date of Service: Feb 18, 2020 Physician Name DiFord Attending Physician Moisés Richards MD Current Medications Medications (Trade) Dose Ordered Sig/Celia Route PRN Reason Start Time Stop Time Status Last Admin Dose Admin Acetaminophen (Tylenol) 650 mg Q4H PRN ORAL fever 02/13/20 13:30 03/14/20 13:29 Amylase/Lipase/ Protease (Zenpep) 2 ea THREE TIMES A DAY ORAL 02/16/20 13:00 05/16/20 12:59 02/18/20 12:17 Dextrose (Dextrose 50%) 25 ml Q30M PRN IV Hypoglycemia 02/13/20 13:30 05/13/20 13:29 Dextrose (Dextrose 50%) 50 ml Q30M PRN IV Hypoglycemia 02/13/20 13:30 05/13/20 13:29 Diphenhydramine HCl (Benadryl) 25 mg Q6H PRN ORAL Itching/Pruritis 02/13/20 13:30 03/14/20 13:29 Docusate Sodium (Colace) 100 mg THREE TIMES A DAY ORAL 02/15/20 13:00 03/16/20 12:59 02/18/20 12:17 Lactulose (Cephulac) 30 gm THREE TIMES A DAY ORAL 02/15/20 13:00 03/16/20 12:59 02/18/20 12:17 Lorazepam (Ativan 2mg/ml 1ml) 0.5 mg Q4H PRN IV For Anxiety 02/13/20 13:30 02/20/20 13:29 02/18/20 02:13 Metoclopramide HCl (Reglan) 10 mg Q6H PRN IVP servere nauasea 02/13/20 13:30 03/14/20 13:29 Mineral Oil (Fleet's Mineral Oil Enema) 133 ml EVERY OTHER DAY RECTAL 02/17/20 09:00 03/18/20 08:59 Morphine Sulfate (Morphine Sulfate) 2 mg EVERY 4 HOURS PRN IVP Moderate Pain (Pain Scale 4-6) 02/13/20 13:30 02/20/20 13:29 02/17/20 14:19 Morphine Sulfate (Morphine Sulfate) 6 mg Q3H PRN IVP Severe Pain (Pain Scale 7-10) 02/15/20 11:59 02/22/20 11:58 02/18/20 12:51 Nitroglycerin (Ntg) 0.4 mg Q5M X 3 DOSES PRN SL Prn Chest Pain 02/13/20 13:30 03/14/20 13:29 Ondansetron HCl (Zofran) 4 mg Q6H PRN IVP Nausea & Vomiting 02/13/20 13:30 03/14/20 13:29 Pantoprazole (Protonix) 40 mg DAILY IV 02/13/20 14:56 03/14/20 14:55 02/18/20 09:18 Piperacillin Sod/ Tazobactam Sod 3.375 gm/Sodium Chloride 110 ml @ 27.5 mls/hr Q8H IVPB 02/14/20 10:00 02/21/20 09:59 02/18/20 09:21 Polyethylene Glycol (Miralax) 17 gm HSPRN PRN ORAL Constipation 02/13/20 13:30 03/14/20 13:29 Promethazine HCl (Phenergan) 25 mg Q6H PRN IM Refractory N/V 02/13/20 13:30 03/14/20 13:29 Temazepam (Restoril) 15 mg HSPRN PRN ORAL Insomnia 02/13/20 13:30 02/20/20 13:29 02/15/20 22:09 Allergies: Coded Allergies: IBUPROFEN (Unverified Allergy, Unknown, 02/13/20) ASPIRIN (Verified Adverse Reaction, Mild, ULCERS, 08/16/11) NAPROXEN (Verified Adverse Reaction, Mild, ULCERS, 05/19/12) NSAIDS (NON-STEROIDAL ANTI-INFLAMMA (Verified Adverse Reaction, Mild, ULCERS, 08/16/11) ROS Limited/Unobtainable: No Constitutional: Reports: no symptoms HEENT: Reports: no symptoms Cardiovascular: Reports: no symptoms Respiratory: Reports: no symptoms Gastrointestinal/Abdominal: Reports: abdominal pain Genitourinary: Reports: no symptoms Neurologic/Psychiatric: Reports: no symptoms Subjective 49 YO F admitted with LUQ pain. Now splenic rupture. Cover for Int Malissa Richards Objective Last Vital Signs Date Time Temp Pulse Resp B/P (MAP) Pulse Ox O2 Delivery O2 Flow Rate FiO2 02/18/20 11:44 72 02/18/20 11:43 99.9 19 127/66 (86) 95 02/17/20 21:00 Room Air Laboratory Tests Test 02/17/20 19:00 02/18/20 06:38 White Blood Count 7.0 K/UL (4.8-10.8) 6.6 K/UL (4.8-10.8) Red Blood Count 3.09 M/UL (4.20-5.40) L 2.81 M/UL (4.20-5.40) L Hemoglobin 9.7 G/DL (12.0-16.0) L 9.2 G/DL (12.0-16.0) L Hematocrit 30.6 % (37.0-47.0) L 25.8 % (37.0-47.0) L Mean Corpuscular Volume 99 FL (80-99) 92 FL (80-99) Mean Corpuscular Hemoglobin 31.4 PG (27.0-31.0) H 32.7 PG (27.0-31.0) H Mean Corpuscular Hemoglobin Concent 31.7 G/DL (32.0-36.0) L 35.6 G/DL (32.0-36.0) Red Cell Distribution Width 17.3 % (11.6-14.8) H 14.9 % (11.6-14.8) H Platelet Count 374 K/UL (150-450) 382 K/UL (150-450) Mean Platelet Volume 5.3 FL (6.5-10.1) L 4.6 FL (6.5-10.1) L Neutrophils (%) (Auto) 54.2 % (45.0-75.0) 55.0 % (45.0-75.0) Lymphocytes (%) (Auto) 21.6 % (20.0-45.0) 20.8 % (20.0-45.0) Monocytes (%) (Auto) 18.4 % (1.0-10.0) H 19.7 % (1.0-10.0) H Eosinophils (%) (Auto) 3.3 % (0.0-3.0) H 3.0 % (0.0-3.0) Basophils (%) (Auto) 2.5 % (0.0-2.0) H 1.6 % (0.0-2.0) Sodium Level 140 MMOL/L (136-145) Potassium Level 3.6 MMOL/L (3.5-5.1) Chloride Level 103 MMOL/L (98-107) Carbon Dioxide Level 33 MMOL/L (21-32) H Anion Gap 4 mmol/L (5-15) L Blood Urea Nitrogen 7 mg/dL (7-18) Creatinine 0.7 MG/DL (0.55-1.30) Estimat Glomerular Filtration Rate > 60 mL/min (>60) Glucose Level 93 MG/DL (74-106) Calcium Level 8.8 MG/DL (8.5-10.1) Total Bilirubin 0.5 MG/DL (0.2-1.0) Aspartate Amino Transf (AST/SGOT) 39 U/L (15-37) H Alanine Aminotransferase (ALT/SGPT) 39 U/L (12-78) Alkaline Phosphatase 82 U/L (46-116) Total Protein 6.1 G/DL (6.4-8.2) L Albumin 2.3 G/DL (3.4-5.0) L Globulin 3.8 g/dL Albumin/Globulin Ratio 0.6 (1.0-2.7) L Intake and Output 02/17/20 02/18/20 19:00 07:00 Intake Total 480 ml 350.0 ml Balance 480 ml 350.0 ml Intake Oral 480 ml 240 ml IV Total 110.0 ml # Voids 2 # Bowel Movements 1 Objective PHYSICAL EXAMINATION: GENERAL: Patient is well-developed, well-nourished female, in no apparent distress. HEENT: Eyes, pupils are equal and responsive to light and accommodation. Extraocular movements are intact. NECK: Supple without lymphadenopathy. CHEST: Lungs are clear to auscultation bilaterally without wheezes or rales. CARDIOVASCULAR: Tachycardic, regular rhythm. S1, S2 normal without murmurs, rubs, or gallops. ABDOMEN: Soft, diffusely tender with decreased bowel sounds. No hepatosplenomegaly. Currently no rebound. There is voluntary guarding to the left upper quadrant to palpation. RECTAL/GENITAL: Not performed. NEUROLOGIC: Cranial nerves II through XII are grossly intact without focal deficits. Motor strength is 5/5 bilaterally. Deep tendon reflexes are 2+ plantar. Assessment/Plan Assessment/Plan ASSESSMENT: This is a 49-year-old female. 1. Splenic rupture. 2. Left upper quadrant abdominal pain. 3. Severe anemia. 4. Melena. 5. Hypertension. 6. Alcohol dependence. 7. Alcoholic steatosis. TREATMENT: 1. Splenic rupture. A General Surgery consultation has been obtained with Dr. Jason Cross. We will follow recommendations of Surgery. Possible splenectomy if anemia worsens per surgery 2. Left upper quadrant abdominal pain. This is probably secondary to splenic rupture as above. 3. Severe anemia. Secondary to splenic rupture as above. S/P transfusion 2 units PRBC. Peptic ulcer disease and bleeding gastric ulcer cannot be excluded. A Gastroenterology consultation has been obtained with Dr. Valerio Elias. 4. Melena. This may be secondary to gastrointestinal hemorrhage. Patient has been started empirically on Protonix. 5. Hypertension. Patient is currently hypotensive. Hold antihypertensive medications. 6. Alcohol dependence. 7. Alcoholic steatosis. 8. Transfer to [facility] when bed available and 2nd COVID 19 negative Ford Sevilla MD Feb 18, 2020 14:32
--- NOTE | 2020-02-18 14:51 | Surgery Progress Note ---
Surgery Progress Note Subjective Additional Comments no acute events h/h relatively stable exam unchanged still with abd pain Objective Last 24 Hour Vital Signs Date Time Temp Pulse Resp B/P (MAP) Pulse Ox O2 Delivery O2 Flow Rate FiO2 02/18/20 11:44 72 02/18/20 11:43 99.9 83 19 127/66 (86) 95 02/18/20 08:00 98.4 83 19 140/66 (90) 95 02/18/20 07:58 81 02/18/20 04:00 98.4 83 19 139/66 (90) 95 02/18/20 04:00 78 02/18/20 00:00 80 02/18/20 00:00 99.3 81 18 160/99 (119) 96 02/17/20 21:00 Room Air 02/17/20 20:00 99.1 79 20 139/68 (91) 97 02/17/20 16:13 89 02/17/20 16:00 99.7 82 18 145/87 (106) 96 02/17/20 15:39 99.7 I&O Intake and Output 02/17/20 02/18/20 19:00 07:00 Intake Total 480 ml 350.0 ml Balance 480 ml 350.0 ml Intake Oral 480 ml 240 ml IV Total 110.0 ml # Voids 2 # Bowel Movements 1 Cardiovascular: RSR Respiratory: decreased breath sounds Abdomen: soft, tenderness, present bowel sounds, non-distended Extremities: no edema, no tenderness, no cyanosis Laboratory Tests Test 02/17/20 19:00 02/18/20 06:38 White Blood Count 7.0 K/UL (4.8-10.8) 6.6 K/UL (4.8-10.8) Red Blood Count 3.09 M/UL (4.20-5.40) L 2.81 M/UL (4.20-5.40) L Hemoglobin 9.7 G/DL (12.0-16.0) L 9.2 G/DL (12.0-16.0) L Hematocrit 30.6 % (37.0-47.0) L 25.8 % (37.0-47.0) L Mean Corpuscular Volume 99 FL (80-99) 92 FL (80-99) Mean Corpuscular Hemoglobin 31.4 PG (27.0-31.0) H 32.7 PG (27.0-31.0) H Mean Corpuscular Hemoglobin Concent 31.7 G/DL (32.0-36.0) L 35.6 G/DL (32.0-36.0) Red Cell Distribution Width 17.3 % (11.6-14.8) H 14.9 % (11.6-14.8) H Platelet Count 374 K/UL (150-450) 382 K/UL (150-450) Mean Platelet Volume 5.3 FL (6.5-10.1) L 4.6 FL (6.5-10.1) L Neutrophils (%) (Auto) 54.2 % (45.0-75.0) 55.0 % (45.0-75.0) Lymphocytes (%) (Auto) 21.6 % (20.0-45.0) 20.8 % (20.0-45.0) Monocytes (%) (Auto) 18.4 % (1.0-10.0) H 19.7 % (1.0-10.0) H Eosinophils (%) (Auto) 3.3 % (0.0-3.0) H 3.0 % (0.0-3.0) Basophils (%) (Auto) 2.5 % (0.0-2.0) H 1.6 % (0.0-2.0) Sodium Level 140 MMOL/L (136-145) Potassium Level 3.6 MMOL/L (3.5-5.1) Chloride Level 103 MMOL/L (98-107) Carbon Dioxide Level 33 MMOL/L (21-32) H Anion Gap 4 mmol/L (5-15) L Blood Urea Nitrogen 7 mg/dL (7-18) Creatinine 0.7 MG/DL (0.55-1.30) Estimat Glomerular Filtration Rate > 60 mL/min (>60) Glucose Level 93 MG/DL (74-106) Calcium Level 8.8 MG/DL (8.5-10.1) Total Bilirubin 0.5 MG/DL (0.2-1.0) Aspartate Amino Transf (AST/SGOT) 39 U/L (15-37) H Alanine Aminotransferase (ALT/SGPT) 39 U/L (12-78) Alkaline Phosphatase 82 U/L (46-116) Total Protein 6.1 G/DL (6.4-8.2) L Albumin 2.3 G/DL (3.4-5.0) L Globulin 3.8 g/dL Albumin/Globulin Ratio 0.6 (1.0-2.7) L Plan Problems: (1) Splenic rupture Assessment & Plan: The spleen is markedly abnormal. The normally enhancing spleen demonstrates distortion of the anatomy and is surrounded by a large area of mixed attenuation which measures approximately 9 x 7 x 9.5 cm. High attenuation fluid is also seen within the left paracolic gutter as well as is under the left hemidiaphragm and adjacent to the left hepatic lobe. A small sliver of high attenuation fluid is also seen over the dome of the right hepatic lobe and there is a moderate amount of the same in the pelvis.. There is some infiltration of the left upper quadrant retroperitoneal and omental fat. The enhancing portion of the spleen for the most part enhances normally, although there is some heterogeneity to the enhancement of the lower pole. This is a new finding. Previously the spleen was normal in size, attenuation, and enhancement. The splenic vein is diffusely small in caliber, and patency near the hilum is uncertain. Previously this was larger in caliber. The previously demonstrated acute pancreatitis changes have resolved. The liver is mildly enlarged and is hypoattenuating. Again demonstrated are a few subcentimeter low-attenuation lesions which are too small to characterize. These are somewhat less apparent than on the prior study. The gallbladder is mildly distended. No biliary ductal dilatation. The pancreas is atrophic and contains numerous calcifications. The kidneys are unremarkable. No retroperitoneal or mesenteric mass or adenopathy. No pelvic mass or adenopathy. The appendix is normal. There is colonic diverticulosis. No evidence of acute diverticulitis. No small bowel distention. No free or loculated intraperitoneal gas or fluid is evident. There is evidence of prior gastric bypass surgery. The lung bases demonstrate mosaic perfusion which is not evident on the prior exam, and there is borderline groundglass opacity in the left costophrenic sulcus. The bones are unremarkable. Impression: Markedly abnormal spleen, surrounded by 9 x 7 x 9.5 cm area of mixed attenuation, as well as high attenuation fluid, presumably blood, within the peritoneal space. Findings most likely represent splenic rupture with large subcapsular hematoma and associated hemoperitoneum. Note also uncertain patency of the splenic vein near the hilum as well as evidence of a few small splenic hilar varices. This is new since the previous study Previously reported acute pancreatitis changes have resolved. There is now pancreatic atrophy and extensive calcification which is a new finding and presumably a sequela of the previously demonstrated acute pancreatitis Enlarged fatty liver, also previously described Mosaic perfusion at the lung bases with some borderline groundglass opacity in the left costophrenic sulcus. Findings are nonspecific, most likely represent dependent atelectatic changes but other etiologies also possible. Colonic diverticulosis. No evidence of acute diverticulitis (2) Abdominal pain Assessment & Plan: abdominal pain for [address] with possible splenic ruptures anemia leukocytosis no active extravasation noted HD stable exam with discomfort but no peritonitis will need to monitor closely admit for monitoring npo iv fluids tend h/h abd exams t/s prbc discussed with patient. if h/h drops, worsening pain, deterioration will need to proceed to OR for exploration otherwise will monitor closely with resuscitation stable trend h/h hold surgical intervention states feeling better will monitor closely thank you will follow with recs improved states pain luq from coughing just prior to incident. no trauma denies but states massive coughing prior to this h/h stable start diet repeat h/h possible repeat CT in AM trend h/h Jason Cross Feb 18, 2020 14:51
[2020-02-18 15:33] VITALS: BP 141/88
--- NOTE | 2020-02-18 19:10 | NUR ---
NURSE NOTES: Received report from JONNA Caro. Patient awake, alert, and responsive. Ambulatory. AOx4. Able to make needs known. On semi-kaye's position. No signs of acute distress or shortness of breath. On room air, saturating at 98%. Patient's temperature was endorsed to be at 100F prior to Tylenol administration. Rechecked temperature at 99.5F. IV intact and flushed. Skin intact. Bed in lowest position. Belongings within reach. Call light within reach. Side rails raised x2. Will continue to monitor.
--- NOTE | 2020-02-18 19:17 | NUR ---
NURSE NOTES: paged dr Kiley de la torre fever , via [facility], await call back paged dr Di de la torre pt req for dilaudid 4mg q4 prn, await call back
[2020-02-18 20:00] VITALS: BP 130/72
[2020-02-19 00:49] VITALS: BP 137/88
[2020-02-19] MEDS: Morphine Sulfate 2mg/ml Inj(IV/IM USE ONLY) IVP PRN (01:10)
[2020-02-19] MEDS: Piperacillin/Tazobactam 3.375 GM in NS 110 ML IVPB SCH ×3 (01:11→17:20)
[2020-02-19] MEDS: Morphine Sulfate 4mg/ml Inj (IV USE ONLY) IVP PRN ×3 (01:41→12:30)
--- NOTE | 2020-02-19 01:44 | NUR ---
NURSE NOTES: Only 4mg of Morphine Sulfate 6mg order was administered because patient recently asked for 2mg Morphine Sulfate dose prior.
[2020-02-19 04:00] VITALS: BP 158/94
[2020-02-19] MEDS: LORazepam Inj 2mg/ml 1ml IV PRN (04:21)
--- NOTE | 2020-02-19 07:27 | NUR ---
HAND-OFF: Report given to JONNA Smith. Plan of care endorsed.
--- NOTE | 2020-02-19 07:30 | NUR ---
NURSE NOTES: Received report from JONNA Mo. Observed pt sleeping in bed, no s/sx of acute distress. IV site on L hand patent and asymptomatic. Breathing even and unlabored in RA. Bed on lowest position, call light within reach. Will continue plan of care.
[2020-02-19 08:00] VITALS: BP 139/85
[2020-02-19 08:47] LABS: ALANINE AMINOTRANSFERASE 33 U/L (12-78); ALBUMIN 2.5 G/DL (3.4-5.0); ALBUMIN/GLOBULIN RATIO 0.6 (1.0-2.7); ALKALINE PHOSPHATASE 82 U/L (46-116); ANION GAP 6 mmol/L (5-15); ASPARTATE AMINO TRANSFERASE 35 U/L (15-37); BASOPHILS % (AUTO) 1.3 % (0.0-2.0); BILIRUBIN,TOTAL 0.5 MG/DL (0.2-1.0); BLOOD UREA NITROGEN 9 mg/dL (7-18); CALCIUM 8.9 MG/DL (8.5-10.1); CARBON DIOXIDE 31 MMOL/L (21-32); CHLORIDE 102 MMOL/L (98-107); CREATININE 0.8 MG/DL (0.55-1.30); EOSINOPHILS % (AUTO) 2.7 % (0.0-3.0); HEMATOCRIT 28.1 % (37.0-47.0); HEMOGLOBIN 9.5 G/DL (12.0-16.0); LYMPHOCYTES % (AUTO) 17.4 % (20.0-45.0); MEAN CORPUSCULAR VOLUME 94 FL (80-99); MONOCYTES % (AUTO) 17.6 % (1.0-10.0); NEUTROPHILS % (AUTO) 61.1 % (45.0-75.0); PLATELET COUNT 433 K/UL (150-450); POTASSIUM 3.7 MMOL/L (3.5-5.1); RED CELL DISTRIBUTION WIDTH 14.9 % (11.6-14.8); SODIUM 139 MMOL/L (136-145); WHITE BLOOD COUNT 7.8 K/UL (4.8-10.8)
[2020-02-19] MEDS: Lactulose 20gm/30ml UDC ORAL SCH ×3 (09:00→18:00)
[2020-02-19] MEDS: Fleet's Mineral Oil Enema RECTAL SCH (09:00)
--- NOTE | 2020-02-19 09:01 | General Progress Note ---
Assessment/Plan Problem List: (1) Fatty liver ICD Codes: K76.0 - Fatty (change of) liver, not elsewhere classified SNOMED: 863664851 (2) Elevated LFTs ICD Codes: R79.89 - Other specified abnormal findings of blood chemistry SNOMED: 461825538, 559464941 (3) Diverticulosis ICD Codes: K57.90 - Diverticulosis of intestine, part unspecified, without perforation or abscess without bleeding SNOMED: 296178816 (4) Anemia ICD Codes: D64.9 - Anemia, unspecified SNOMED: 901180006 (5) h/o panceatitis (6) History of gastric bypass ICD Codes: Z98.84 - Bariatric surgery status SNOMED: 951603642 (7) ETOH abuse ICD Codes: F10.10 - Alcohol abuse, uncomplicated SNOMED: 60365184 (8) Ovarian cyst ICD Codes: N83.20 - Unspecified ovarian cysts SNOMED: 92675924 (9) Alcohol intoxication ICD Codes: F10.129 - Alcoholabuse with intoxication, unspecified SNOMED: 81588743 (10) Abdominal pain ICD Codes: R10.9 - Unspecified abdominal pain SNOMED: 30316062 (11) Splenic rupture ICD Codes: S36.09XA - Other injury of spleen, initial encounter SNOMED: 920954962 Assessment/Plan: ppi fu H&H prn blood transfusion fu labs Creon on diet pending transfer to [facility] Limited/Unobtainable: Yes Allergies: Coded Allergies: IBUPROFEN (Unverified Allergy, Unknown, 02/13/20) ASPIRIN (Verified Adverse Reaction, Mild, ULCERS, 08/16/11) NAPROXEN (Verified Adverse Reaction, Mild, ULCERS, 05/19/12) NSAIDS (NON-STEROIDAL ANTI-INFLAMMA (Verified Adverse Reaction, Mild, ULCERS, 08/16/11) Objective Last 24 Hour Vital Signs Date Time Temp Pulse Resp B/P (MAP) Pulse Ox O2 Delivery O2 Flow Rate FiO2 02/19/20 06:43 99.5 02/19/20 04:00 71 02/19/20 04:00 100.0 75 18 158/94 (115) 98 02/19/20 00:49 99.8 78 18 137/88 (104) 97 02/19/20 00:00 71 02/18/20 21:00 Room Air 02/18/20 20:00 71 4/12/20 20:00 99.6 85 18 130/72 (91) 98 02/18/20 19:28 101.0 02/18/20 15:47 83 02/18/20 15:33 101.0 83 19 141/88 (105) 95 02/18/20 11:44 72 02/18/20 11:43 99.9 83 19 127/66 (86) 95 02/18/20 09:00 Room Air Intake and Output 02/18/20 02/19/20 19:00 07:00 Intake Total 730 ml 720 ml Output Total 1000 ml Balance -270 ml 720 ml Intake Oral 730 ml 720 ml Output Urine Total 1000 ml # Voids 2 # Bowel Movements 2 1 Laboratory Tests 02/19/20 07:30: White Blood Count 7.8, Red Blood Count 3.00L, Hemoglobin 9.5L, Hematocrit 28.1L , Mean Corpuscular Volume 94, Mean Corpuscular Hemoglobin 31.6H, Mean Corpuscular Hemoglobin Concent 33.8, Red Cell Distribution Width 14.9H, Platelet Count 433, Mean Platelet Volume 4.6L, Neutrophils (%) (Auto) 61.1, Lymphocytes (%) (Auto) 17.4L, Monocytes (%) (Auto) 17.6H, Eosinophils (%) (Auto ) 2.7, Basophils (%) (Auto) 1.3, Sodium Level 139, Potassium Level 3.7, Chloride Level 102, Carbon Dioxide Level 31, Anion Gap 6, Blood Urea Nitrogen 9 , Creatinine 0.8, Estimat Glomerular Filtration Rate > 60, Glucose Level 98, Calcium Level 8.9, Total Bilirubin 0.5, Aspartate Amino Transf (AST/SGOT) 35, Alanine Aminotransferase (ALT/SGPT) 33, Alkaline Phosphatase 82, Total Protein 6.4, Albumin 2.5L, Globulin 3.9, Albumin/Globulin Ratio 0.6L Height (Feet): 5 Height (Inches): 6.00 Weight (Pounds): 180 General Appearance: alert EENT: normal ENT inspection Neck: supple Cardiovascular: normal rate Respiratory/Chest: decreased breath sounds Abdomen: normal bowel sounds, non tender, soft Extremities: non-tender Valerio Elias MD Feb 19, 2020 09:01
--- NOTE | 2020-02-19 09:06 | General Progress Note ---
Assessment/Plan Problem List: (1) Fatty liver ICD Codes: K76.0 - Fatty (change of) liver, not elsewhere classified SNOMED: 387867793 (2) Elevated LFTs ICD Codes: R79.89 - Other specified abnormal findings of blood chemistry SNOMED: 928140638, 199647846 (3) Diverticulosis ICD Codes: K57.90 - Diverticulosis of intestine, part unspecified, without perforation or abscess without bleeding SNOMED: 834431082 (4) Anemia ICD Codes: D64.9 - Anemia, unspecified SNOMED: 815297564 (5) h/o panceatitis (6) History of gastric bypass ICD Codes: Z98.84 - Bariatric surgery status SNOMED: 276504416 (7) ETOH abuse ICD Codes: F10.10 - Alcohol abuse, uncomplicated SNOMED: 15458910 (8) Ovarian cyst ICD Codes: N83.20 - Unspecified ovarian cysts SNOMED: 70531633 (9) Alcohol intoxication ICD Codes: F10.129 - Alcoholabuse with intoxication, unspecified SNOMED: 18975265 (10) Abdominal pain ICD Codes: R10.9 - Unspecified abdominal pain SNOMED: 67321278 (11) Splenic rupture ICD Codes: S36.09XA - Other injury of spleen, initial encounter SNOMED: 255329420 Assessment/Plan: ppi change to po fu H&H prn blood transfusion fu labs Creon on diet pending transfer to [facility] Limited/Unobtainable: Yes Allergies: Coded Allergies: IBUPROFEN (Unverified Allergy, Unknown, 02/13/20) ASPIRIN (Verified Adverse Reaction, Mild, ULCERS, 08/16/11) NAPROXEN (Verified Adverse Reaction, Mild, ULCERS, 05/19/12) NSAIDS (NON-STEROIDAL ANTI-INFLAMMA (Verified Adverse Reaction, Mild, ULCERS, 08/16/11) Objective Last 24 Hour Vital Signs Date Time Temp Pulse Resp B/P (MAP) Pulse Ox O2 Delivery O2 Flow Rate FiO2 02/19/20 06:43 99.5 02/19/20 04:00 71 02/19/20 04:00 100.0 75 18 158/94 (115) 98 02/19/20 00:49 99.8 78 18 137/88 (104) 97 02/19/20 00:00 71 02/18/20 21:00 Room Air 02/18/20 20:00 71 02/18/20 20:00 99.6 85 18 130/72 (91) 98 02/18/20 19:28 101.0 02/18/20 15:47 83 02/18/20 15:33 101.0 83 19 141/88 (105) 95 02/18/20 11:44 72 02/18/20 11:43 99.9 83 19 127/66 (86) 95 Intake and Output 02/18/20 02/19/20 19:00 07:00 Intake Total 730 ml 720 ml Output Total 1000 ml Balance -270 ml 720 ml Intake Oral 730 ml 720 ml Output Urine Total 1000 ml # Voids 2 # Bowel Movements 2 1 Laboratory Tests 02/19/20 07:30: White Blood Count 7.8, Red Blood Count 3.00L, Hemoglobin 9.5L, Hematocrit 28.1L , Mean Corpuscular Volume 94, Mean Corpuscular Hemoglobin 31.6H, Mean Corpuscular Hemoglobin Concent 33.8, Red Cell Distribution Width 14.9H, Platelet Count 433, Mean Platelet Volume 4.6L, Neutrophils (%) (Auto) 61.1, Lymphocytes (%) (Auto) 17.4L, Monocytes (%) (Auto) 17.6H, Eosinophils (%) (Auto ) 2.7, Basophils (%) (Auto) 1.3, Sodium Level 139, Potassium Level 3.7, Chloride Level 102, Carbon Dioxide Level 31, Anion Gap 6, Blood Urea Nitrogen 9 , Creatinine 0.8, Estimat Glomerular Filtration Rate > 60, Glucose Level 98, Calcium Level 8.9, Total Bilirubin 0.5, Aspartate Amino Transf (AST/SGOT) 35, Alanine Aminotransferase (ALT/SGPT) 33, Alkaline Phosphatase 82, Total Protein 6.4, Albumin 2.5L, Globulin 3.9, Albumin/Globulin Ratio 0.6L Height (Feet): 5 Height (Inches): 6.00 Weight (Pounds): 180 General Appearance: alert EENT: normal ENT inspection Neck: supple Cardiovascular: normal rate Respiratory/Chest: decreased breath sounds Abdomen: normal bowel sounds, non tender, soft Extremities: non-tender Valerio Elias MD Feb 19, 2020 09:06
[2020-02-19] MEDS: Pancrelipase Dr Cap ORAL SCH ×3 (09:20→17:19)
[2020-02-19] MEDS: Docusate 100mg cap ORAL SCH ×3 (09:20→17:19)
--- NOTE | 2020-02-19 10:19 | NUR ---
CASE MANAGEMENT:REVIEW 02/19/20 SI: LUQ ABDOMINAL PAIN. ANEMIA..S/P 1 UNIT PRBC'S SPLENIC RUPTURE. COVID 19 NOT DETECTED H/O ETOH ABUSE. PUD. GASTRIC BYPASS 100.0 75 18 158/94 98% ON RA H/H-9.5/28.1 IS: LACTULOSE PO TID IV THIAMINE Q24 IV BANANA BAG Q24 IV MORPHINE 6MG Q3HRS PRN IVF@100/HR IV ZOSYN Q8HRS IV PROTONIX QD MINERAL OIL ENEMA EVERY OTHER DAY : TELEMETRY STATUS DCP: PATIENT IS FROM HOME PLAN: STABLE FOR TRANSFER ORDER IN PLACE COVID 19 NEGATIVE X1.....TEST REPEATED 02/16/20...RESULTS PENDING PER NURSING DOCUMENTATION....CARPIO SENT AMBULANCE ON WEDNESDAY TO SECURITY STRATEGIST PATIENT BUT LATER WAS CANCELLED DUE TO 2ND COVID 19 THAT WAS ORDERED
[2020-02-19 12:00] VITALS: BP 142/94
--- NOTE | 2020-02-19 12:29 | Infectious Diseases Prog Note ---
Assessment/Plan Assessment/Plan Fever Mild leukocytosis, SP Lymphopenia Transaminitis, resolving CAP-high suspicion for COVID19 r/o COVID SARS CoV PCR negative CT chest: Mosaic perfusion at lung bases with some borderline groundglass opacity in the left costophrenic sulcus. Findings are nonspecific, most likely represent dependent atelectatic changes but other etiologies also possible. Splenic rupture with large subcapsular hematoma and hemoperitoneum 02/12 CT A/P: Markedly abnormal spleen, surrounded by 9 x 7 x 9.5 cm area of mixed attenuation, as well as high attenuation fluid, presumably blood, within the peritoneal space. Findings most likely represent splenic rupture with large subcapsular hematoma and associated hemoperitoneum. Note also uncertain patency of the splenic vein near the hilum as well as evidence of a few small splenic hilar varices. This is new since the previous study. Previously reported acute pancreatitis changes have resolved. There is now pancreatic atrophy and extensive calcification which is a new finding and presumably a sequela of the previously demonstrated acute pancreatitis. Enlarged fatty liver, also previously described. Colonic diverticulosis. No evidence of acute diverticulitis PUD HTN EtOH abuse Depression Plan: continue zosyn #7 f/u second COVID swab. while fevers most likely 2/2 splenic rupture, pt reported cough to other providers and CT chest with GGO. continue COVID isolation monitor temp and CBC monitor resp status f/u Bcx CXR DW RN Subjective Allergies: Coded Allergies: IBUPROFEN (Unverified Allergy, Unknown, 02/13/20) ASPIRIN (Verified Adverse Reaction, Mild, ULCERS, 08/16/11) NAPROXEN (Verified Adverse Reaction, Mild, ULCERS, 05/19/12) NSAIDS (NON-STEROIDAL ANTI-INFLAMMA (Verified Adverse Reaction, Mild, ULCERS, 08/16/11) Subjective Tm 101.1 at RA no leukocytosis Bcx p Objective Vital Signs Last 24 Hour Vital Signs Date Time Temp Pulse Resp B/P (MAP) Pulse Ox O2 Delivery O2 Flow Rate FiO2 02/19/20 12:00 98.8 66 18 142/94 (110) 95 02/19/20 09:00 Room Air 02/19/20 08:00 97.9 72 20 139/85 (103) 95 02/19/20 07:40 68 02/19/20 06:43 99.5 02/19/20 04:00 71 02/19/20 04:00 100.0 75 18 158/94 (115) 98 02/19/20 00:49 99.8 78 18 137/88 (104) 97 02/19/20 00:00 71 02/18/20 21:00 Room Air 02/18/20 20:00 71 02/18/20 20:00 99.6 85 18 130/72 (91) 98 02/18/20 19:28 101.0 02/18/20 15:47 83 02/18/20 15:33 101.0 83 19 141/88 (105) 95 Height (Feet): 5 Height (Inches): 6.00 Weight (Pounds): 180 Objective Gen: NAD. well nourished. well hydrated CV: RRR. S1+S2. no rubs or gallop. Resp: RRR. no wheezes or crackles. equal chest rise. unlabored. Abd: soft. normoactive Bs+. L sided tenderness Laboratory Tests Test 02/19/20 07:30 White Blood Count 7.8 K/UL (4.8-10.8) Red Blood Count 3.00 M/UL (4.20-5.40) L Hemoglobin 9.5 G/DL (12.0-16.0) L Hematocrit 28.1 % (37.0-47.0) L Mean Corpuscular Volume 94 FL (80-99) Mean Corpuscular Hemoglobin 31.6 PG (27.0-31.0) H Mean Corpuscular Hemoglobin Concent 33.8 G/DL (32.0-36.0) Red Cell Distribution Width 14.9 % (11.6-14.8) H Platelet Count 433 K/UL (150-450) Mean Platelet Volume 4.6 FL (6.5-10.1) L Neutrophils (%) (Auto) 61.1 % (45.0-75.0) Lymphocytes (%) (Auto) 17.4 % (20.0-45.0) L Monocytes (%) (Auto) 17.6 % (1.0-10.0) H Eosinophils (%) (Auto) 2.7 % (0.0-3.0) Basophils (%) (Auto) 1.3 % (0.0-2.0) Sodium Level 139 MMOL/L (136-145) Potassium Level 3.7 MMOL/L (3.5-5.1) Chloride Level 102 MMOL/L (98-107) Carbon Dioxide Level 31 MMOL/L (21-32) Anion Gap 6 mmol/L (5-15) Blood Urea Nitrogen 9 mg/dL (7-18) Creatinine 0.8 MG/DL (0.55-1.30) Estimat Glomerular Filtration Rate > 60 mL/min (>60) Glucose Level 98 MG/DL (74-106) Calcium Level 8.9 MG/DL (8.5-10.1) Total Bilirubin 0.5 MG/DL (0.2-1.0) Aspartate Amino Transf (AST/SGOT) 35 U/L (15-37) Alanine Aminotransferase (ALT/SGPT) 33 U/L (12-78) Alkaline Phosphatase 82 U/L (46-116) Total Protein 6.4 G/DL (6.4-8.2) Albumin 2.5 G/DL (3.4-5.0) L Globulin 3.9 g/dL Albumin/Globulin Ratio 0.6 (1.0-2.7) L Current Medications Medications (Trade) Dose Ordered Sig/Celia Route PRN Reason Start Time Stop Time Status Last Admin Dose Admin Acetaminophen (Tylenol) 650 mg Q4H PRN ORAL fever 02/13/20 13:30 03/14/20 13:29 02/19/20 04:33 Amylase/Lipase/ Protease (Zenpep) 2 ea THREE TIMES A DAY ORAL 02/16/20 13:00 05/16/20 12:59 02/19/20 09:20 Dextrose (Dextrose 50%) 25 ml Q30M PRN IV Hypoglycemia 02/13/20 13:30 05/13/20 13:29 Dextrose (Dextrose 50%) 50 ml Q30M PRN IV Hypoglycemia 02/13/20 13:30 05/13/20 13:29 Diphenhydramine HCl (Benadryl) 25 mg Q6H PRN ORAL Itching/Pruritis 02/13/20 13:30 03/14/20 13:29 Docusate Sodium (Colace) 100 mg THREE TIMES A DAY ORAL 02/15/20 13:00 03/16/20 12:59 02/19/20 09:20 Lactulose (Cephulac) 30 gm THREE TIMES A DAY ORAL 02/15/20 13:00 03/16/20 12:59 02/18/20 18:57 Lorazepam (Ativan 2mg/ml 1ml) 0.5 mg Q4H PRN IV For Anxiety 02/13/20 13:30 02/20/20 13:29 02/19/20 04:21 Metoclopramide HCl (Reglan) 10 mg Q6H PRN IVP servere nacaseysea 02/13/20 13:30 03/14/20 13:29 Mineral Oil (Fleet's Mineral Oil Enema) 133 ml EVERY OTHER DAY RECTAL 02/17/20 09:00 03/18/20 08:59 Morphine Sulfate (Morphine Sulfate) 2 mg EVERY 4 HOURS PRN IVP Moderate Pain (Pain Scale 4-6) 02/13/20 13:30 02/20/20 13:29 02/19/20 01:10 Morphine Sulfate (Morphine Sulfate) 6 mg Q3H PRN IVP Severe Pain (Pain Scale 7-10) 02/15/20 11:59 02/22/20 11:58 02/19/20 09:28 Nitroglycerin (Ntg) 0.4 mg Q5M X 3 DOSES PRN SL Prn Chest Pain 02/13/20 13:30 03/14/20 13:29 Ondansetron HCl (Zofran) 4 mg Q6H PRN IVP Nausea & Vomiting 02/13/20 13:30 03/14/20 13:29 Pantoprazole (Protonix) 40 mg ACBREAKFAST ORAL 02/20/20 06:30 03/21/20 06:29 Piperacillin Sod/ Tazobactam Sod 3.375 gm/Sodium Chloride 110 ml @ 27.5 mls/hr Q8H IVPB 02/14/20 10:00 02/21/20 09:59 02/19/20 09:21 Polyethylene Glycol (Miralax) 17 gm HSPRN PRN ORAL Constipation 02/13/20 13:30 03/14/20 13:29 Promethazine HCl (Phenergan) 25 mg Q6H PRN IM Refractory N/V 02/13/20 13:30 03/14/20 13:29 Temazepam (Restoril) 15 mg HSPRN PRN ORAL Insomnia 02/13/20 13:30 02/20/20 13:29 02/15/20 22:09 Karla Mendez M.D. Feb 19, 2020 12:29
--- NOTE | 2020-02-19 13:05 | Surgery Progress Note ---
Surgery Progress Note Subjective Additional Comments febrile labs stable h/h stable covid testing as per ID pending transfer Objective Last 24 Hour Vital Signs Date Time Temp Pulse Resp B/P (MAP) Pulse Ox O2 Delivery O2 Flow Rate FiO2 02/19/20 12:00 98.8 66 18 142/94 (110) 95 02/19/20 09:00 Room Air 02/19/20 08:00 97.9 72 20 139/85 (103) 95 02/19/20 07:40 68 02/19/20 06:43 99.5 02/19/20 04:00 71 02/19/20 04:00 100.0 75 18 158/94 (115) 98 02/19/20 00:49 99.8 78 18 137/88 (104) 97 02/19/20 00:00 71 02/18/20 21:00 Room Air 02/18/20 20:00 71 02/18/20 20:00 99.6 85 18 130/72 (91) 98 02/18/20 19:28 101.0 02/18/20 15:47 83 02/18/20 15:33 101.0 83 19 141/88 (105) 95 I&O Intake and Output 02/18/20 02/19/20 19:00 07:00 Intake Total 730 ml 720 ml Output Total 1000 ml Balance -270 ml 720 ml Intake Oral 730 ml 720 ml Output Urine Total 1000 ml # Voids 2 # Bowel Movements 2 1 Cardiovascular: RSR Respiratory: clear, decreased breath sounds Abdomen: soft, tenderness, present bowel sounds, non-distended Extremities: no edema, no tenderness, no cyanosis Laboratory Tests Test 02/19/20 07:30 White Blood Count 7.8 K/UL (4.8-10.8) Red Blood Count 3.00 M/UL (4.20-5.40) L Hemoglobin 9.5 G/DL (12.0-16.0) L Hematocrit 28.1 % (37.0-47.0) L Mean Corpuscular Volume 94 FL (80-99) Mean Corpuscular Hemoglobin 31.6 PG (27.0-31.0) H Mean Corpuscular Hemoglobin Concent 33.8 G/DL (32.0-36.0) Red Cell Distribution Width 14.9 % (11.6-14.8) H Platelet Count 433 K/UL (150-450) Mean Platelet Volume 4.6 FL (6.5-10.1) L Neutrophils (%) (Auto) 61.1 % (45.0-75.0) Lymphocytes (%) (Auto) 17.4 % (20.0-45.0) L Monocytes (%) (Auto) 17.6 % (1.0-10.0) H Eosinophils (%) (Auto) 2.7 % (0.0-3.0) Basophils (%) (Auto) 1.3 % (0.0-2.0) Sodium Level 139 MMOL/L (136-145) Potassium Level 3.7 MMOL/L (3.5-5.1) Chloride Level 102 MMOL/L (98-107) Carbon Dioxide Level 31 MMOL/L (21-32) Anion Gap 6 mmol/L (5-15) Blood Urea Nitrogen 9 mg/dL (7-18) Creatinine 0.8 MG/DL (0.55-1.30) Estimat Glomerular Filtration Rate > 60 mL/min (>60) Glucose Level 98 MG/DL (74-106) Calcium Level 8.9 MG/DL (8.5-10.1) Total Bilirubin 0.5 MG/DL (0.2-1.0) Aspartate Amino Transf (AST/SGOT) 35 U/L (15-37) Alanine Aminotransferase (ALT/SGPT) 33 U/L (12-78) Alkaline Phosphatase 82 U/L (46-116) Total Protein 6.4 G/DL (6.4-8.2) Albumin 2.5 G/DL (3.4-5.0) L Globulin 3.9 g/dL Albumin/Globulin Ratio 0.6 (1.0-2.7) L Plan Problems: (1) Splenic rupture Assessment & Plan: The spleen is markedly abnormal. The normally enhancing spleen demonstrates distortion of the anatomy and is surrounded by a large area of mixed attenuation which measures approximately 9 x 7 x 9.5 cm. High attenuation fluid is also seen within the left paracolic gutter as well as is under the left hemidiaphragm and adjacent to the left hepatic lobe. A small sliver of high attenuation fluid is also seen over the dome of the right hepatic lobe and there is a moderate amount of the same in the pelvis.. There is some infiltration of the left upper quadrant retroperitoneal and omental fat. The enhancing portion of the spleen for the most part enhances normally, although there is some heterogeneity to the enhancement of the lower pole. This is a new finding. Previously the spleen was normal in size, attenuation, and enhancement. The splenic vein is diffusely small in caliber, and patency near the hilum is uncertain. Previously this was larger in caliber. The previously demonstrated acute pancreatitis changes have resolved. The liver is mildly enlarged and is hypoattenuating. Again demonstrated are a few subcentimeter low-attenuation lesions which are too small to characterize. These are somewhat less apparent than on the prior study. The gallbladder is mildly distended. No biliary ductal dilatation. The pancreas is atrophic and contains numerous calcifications. The kidneys are unremarkable. No retroperitoneal or mesenteric mass or adenopathy. No pelvic mass or adenopathy. The appendix is normal. There is colonic diverticulosis. No evidence of acute diverticulitis. No small bowel distention. No free or loculated intraperitoneal gas or fluid is evident. There is evidence of prior gastric bypass surgery. The lung bases demonstrate mosaic perfusion which is not evident on the prior exam, and there is borderline groundglass opacity in the left costophrenic sulcus. The bones are unremarkable. Impression: Markedly abnormal spleen, surrounded by 9 x 7 x 9.5 cm area of mixed attenuation, as well as high attenuation fluid, presumably blood, within the peritoneal space. Findings most likely represent splenic rupture with large subcapsular hematoma and associated hemoperitoneum. Note also uncertain patency of the splenic vein near the hilum as well as evidence of a few small splenic hilar varices. This is new since the previous study Previously reported acute pancreatitis changes have resolved. There is now pancreatic atrophy and extensive calcification which is a new finding and presumably a sequela of the previously demonstrated acute pancreatitis Enlarged fatty liver, also previously described Mosaic perfusion at the lung bases with some borderline groundglass opacity in the left costophrenic sulcus. Findings are nonspecific, most likely represent dependent atelectatic changes but other etiologies also possible. Colonic diverticulosis. No evidence of acute diverticulitis (2) Abdominal pain Assessment & Plan: abdominal pain for [address] with possible splenic ruptures anemia leukocytosis no active extravasation noted HD stable exam with discomfort but no peritonitis will need to monitor closely admit for monitoring npo iv fluids tend h/h abd exams t/s prbc discussed with patient. if h/h drops, worsening pain, deterioration will need to proceed to OR for exploration otherwise will monitor closely with resuscitation stable trend h/h hold surgical intervention states feeling better will monitor closely thank you will follow with recs improved states pain luq from coughing just prior to incident. no trauma denies but states massive coughing prior to this h/h stable start diet repeat h/h possible repeat CT in AM trend h/h Jason Cross Feb 19, 2020 13:05
--- NOTE | 2020-02-19 13:26 | Pulmonology Progress Note ---
Assessment/Plan Problems: (1) Intractable abdominal pain (2) Splenic rupture (3) PUD (peptic ulcer disease) (4) History of gastric bypass (5) ETOH abuse Assessment/Plan pain is better controlled stable to transfer apparently doesn't need any surgery h/h stable on morphine to 6 mg q3 hour add laxatives Subjective ROS Limited/Unobtainable: No Allergies: Coded Allergies: IBUPROFEN (Unverified Allergy, Unknown, 02/13/20) ASPIRIN (Verified Adverse Reaction, Mild, ULCERS, 08/16/11) NAPROXEN (Verified Adverse Reaction, Mild, ULCERS, 05/19/12) NSAIDS (NON-STEROIDAL ANTI-INFLAMMA (Verified Adverse Reaction, Mild, ULCERS, 08/16/11) Objective Last 24 Hour Vital Signs Date Time Temp Pulse Resp B/P (MAP) Pulse Ox O2 Delivery O2 Flow Rate FiO2 02/19/20 12:00 98.8 66 18 142/94 (110) 95 02/19/20 09:00 Room Air 02/19/20 08:00 97.9 72 20 139/85 (103) 95 02/19/20 07:40 68 02/19/20 06:43 99.5 02/19/20 04:00 71 02/19/20 04:00 100.0 75 18 158/94 (115) 98 02/19/20 00:49 99.8 78 18 137/88 (104) 97 02/19/20 00:00 71 02/18/20 21:00 Room Air 02/18/20 20:00 71 02/18/20 20:00 99.6 85 18 130/72 (91) 98 02/18/20 19:28 101.0 02/18/20 15:47 83 02/18/20 15:33 101.0 83 19 141/88 (105) 95 Intake and Output 02/18/20 02/19/20 19:00 07:00 Intake Total 730 ml 720 ml Output Total 1000 ml Balance -270 ml 720 ml Intake Oral 730 ml 720 ml Output Urine Total 1000 ml # Voids 2 # Bowel Movements 2 1 General Appearance: WD/WN HEENT: normocephalic, anicteric Respiratory/Chest: chest wall non-tender, lungs clear Breasts: no masses Abdomen: no organomegaly Extremities: no cyanosis Skin: no lesions Laboratory Tests 02/19/20 07:30: White Blood Count 7.8, Red Blood Count 3.00L, Hemoglobin 9.5L, Hematocrit 28.1L , Mean Corpuscular Volume 94, Mean Corpuscular Hemoglobin 31.6H, Mean Corpuscular Hemoglobin Concent 33.8, Red Cell Distribution Width 14.9H, Platelet Count 433, Mean Platelet Volume 4.6L, Neutrophils (%) (Auto) 61.1, Lymphocytes (%) (Auto) 17.4L, Monocytes (%) (Auto) 17.6H, Eosinophils (%) (Auto ) 2.7, Basophils (%) (Auto) 1.3, Sodium Level 139, Potassium Level 3.7, Chloride Level 102, Carbon Dioxide Level 31, Anion Gap 6, Blood Urea Nitrogen 9 , Creatinine 0.8, Estimat Glomerular Filtration Rate > 60, Glucose Level 98, Calcium Level 8.9, Total Bilirubin 0.5, Aspartate Amino Transf (AST/SGOT) 35, Alanine Aminotransferase (ALT/SGPT) 33, Alkaline Phosphatase 82, Total Protein 6.4, Albumin 2.5L, Globulin 3.9, Albumin/Globulin Ratio 0.6L Current Medications Medications (Trade) Dose Ordered Sig/Celia Route PRN Reason Start Time Stop Time Status Last Admin Dose Admin Acetaminophen (Tylenol) 650 mg Q4H PRN ORAL fever 02/13/20 13:30 03/14/20 13:29 02/19/20 04:33 Amylase/Lipase/ Protease (Zenpep) 2 ea THREE TIMES A DAY ORAL 02/16/20 13:00 05/16/20 12:59 02/19/20 12:29 Dextrose (Dextrose 50%) 25 ml Q30M PRN IV Hypoglycemia 02/13/20 13:30 05/13/20 13:29 Dextrose (Dextrose 50%) 50 ml Q30M PRN IV Hypoglycemia 02/13/20 13:30 05/13/20 13:29 Diphenhydramine HCl (Benadryl) 25 mg Q6H PRN ORAL Itching/Pruritis 02/13/20 13:30 03/14/20 13:29 Docusate Sodium (Colace) 100 mg THREE TIMES A DAY ORAL 02/15/20 13:00 03/16/20 12:59 02/19/20 12:29 Lactulose (Cephulac) 30 gm THREE TIMES A DAY ORAL 02/15/20 13:00 03/16/20 12:59 02/18/20 18:57 Lorazepam (Ativan 2mg/ml 1ml) 0.5 mg Q4H PRN IV For Anxiety 02/13/20 13:30 02/20/20 13:29 02/19/20 04:21 Metoclopramide HCl (Reglan) 10 mg Q6H PRN IVP servere nauasea 02/13/20 13:30 03/14/20 13:29 Mineral Oil (Fleet's Mineral Oil Enema) 133 ml EVERY OTHER DAY RECTAL 02/17/20 09:00 03/18/20 08:59 Morphine Sulfate (Morphine Sulfate) 2 mg EVERY 4 HOURS PRN IVP Moderate Pain (Pain Scale 4-6) 02/13/20 13:30 02/20/20 13:29 02/19/20 01:10 Morphine Sulfate (Morphine Sulfate) 6 mg Q3H PRN IVP Severe Pain (Pain Scale 7-10) 02/15/20 11:59 02/22/20 11:58 02/19/20 12:30 Nitroglycerin (Ntg) 0.4 mg Q5M X 3 DOSES PRN SL Prn Chest Pain 02/13/20 13:30 03/14/20 13:29 Ondansetron HCl (Zofran) 4 mg Q6H PRN IVP Nausea & Vomiting 02/13/20 13:30 03/14/20 13:29 Pantoprazole (Protonix) 40 mg ACBREAKFAST ORAL 02/20/20 06:30 03/21/20 06:29 Piperacillin Sod/ Tazobactam Sod 3.375 gm/Sodium Chloride 110 ml @ 27.5 mls/hr Q8H IVPB 02/14/20 10:00 02/21/20 09:59 02/19/20 09:21 Polyethylene Glycol (Miralax) 17 gm HSPRN PRN ORAL Constipation 02/13/20 13:30 03/14/20 13:29 Promethazine HCl (Phenergan) 25 mg Q6H PRN IM Refractory N/V 02/13/20 13:30 03/14/20 13:29 Temazepam (Restoril) 15 mg HSPRN PRN ORAL Insomnia 02/13/20 13:30 02/20/20 13:29 02/15/20 22:09 Cuate Goel MD Feb 19, 2020 13:26
[2020-02-19] MEDS ORDERED: Naloxone 0.4mg/ml Inj IV PRN (13:30)
--- NOTE | 2020-02-19 14:24 | Consultation ---
History of Present Illness General Date patient seen: Feb 19, 2020 Chief Complaint: Present Illness Allergies: Coded Allergies: IBUPROFEN (Unverified Allergy, Unknown, 02/13/20) ASPIRIN (Verified Adverse Reaction, Mild, ULCERS, 08/16/11) NAPROXEN (Verified Adverse Reaction, Mild, ULCERS, 05/19/12) NSAIDS (NON-STEROIDAL ANTI-INFLAMMA (Verified Adverse Reaction, Mild, ULCERS, 08/16/11) Medication History Scheduled Lisinopril (Lisinopril*), 20 MG ORAL DAILY, (Reported) Paroxetine Hcl* (Paxil*), 20 MG ORAL DAILY, (Reported) Scheduled PRN Ondansetron (Zofran), 4 MG ORAL TID PRN for Nausea & Vomiting Ondansetron* (Zofran*), 4 MG ORAL Q6H PRN for Nausea & Vomiting Patient History Healthcare decision maker Resuscitation status Full Code Advanced Directive on File Physical Exam Last 24 Hour Vital Signs Date Time Temp Pulse Resp B/P (MAP) Pulse Ox O2 Delivery O2 Flow Rate FiO2 02/19/20 12:00 98.8 66 18 142/94 (110) 95 02/19/20 09:00 Room Air 02/19/20 08:00 97.9 72 20 139/85 (103) 95 02/19/20 07:40 68 02/19/20 06:43 99.5 02/19/20 04:00 71 02/19/20 04:00 100.0 75 18 158/94 (115) 98 02/19/20 00:49 99.8 78 18 137/88 (104) 97 02/19/20 00:00 71 02/18/20 21:00 Room Air 02/18/20 20:00 71 02/18/20 20:00 99.6 85 18 130/72 (91) 98 02/18/20 19:28 101.0 02/18/20 15:47 83 02/18/20 15:33 101.0 83 19 141/88 (105) 95 Intake and Output 02/18/20 02/19/20 19:00 07:00 Intake Total 730 ml 720 ml Output Total 1000 ml Balance -270 ml 720 ml Intake Oral 730 ml 720 ml Output Urine Total 1000 ml # Voids 2 # Bowel Movements 2 1 Laboratory Tests Test 02/19/20 07:30 White Blood Count 7.8 K/UL (4.8-10.8) Red Blood Count 3.00 M/UL (4.20-5.40) L Hemoglobin 9.5 G/DL (12.0-16.0) L Hematocrit 28.1 % (37.0-47.0) L Mean Corpuscular Volume 94 FL (80-99) Mean Corpuscular Hemoglobin 31.6 PG (27.0-31.0) H Mean Corpuscular Hemoglobin Concent 33.8 G/DL (32.0-36.0) Red Cell Distribution Width 14.9 % (11.6-14.8) H Platelet Count 433 K/UL (150-450) Mean Platelet Volume 4.6 FL (6.5-10.1) L Neutrophils (%) (Auto) 61.1 % (45.0-75.0) Lymphocytes (%) (Auto) 17.4 % (20.0-45.0) L Monocytes (%) (Auto) 17.6 % (1.0-10.0) H Eosinophils (%) (Auto) 2.7 % (0.0-3.0) Basophils (%) (Auto) 1.3 % (0.0-2.0) Sodium Level 139 MMOL/L (136-145) Potassium Level 3.7 MMOL/L (3.5-5.1) Chloride Level 102 MMOL/L (98-107) Carbon Dioxide Level 31 MMOL/L (21-32) Anion Gap 6 mmol/L (5-15) Blood Urea Nitrogen 9 mg/dL (7-18) Creatinine 0.8 MG/DL (0.55-1.30) Estimat Glomerular Filtration Rate > 60 mL/min (>60) Glucose Level 98 MG/DL (74-106) Calcium Level 8.9 MG/DL (8.5-10.1) Total Bilirubin 0.5 MG/DL (0.2-1.0) Aspartate Amino Transf (AST/SGOT) 35 U/L (15-37) Alanine Aminotransferase (ALT/SGPT) 33 U/L (12-78) Alkaline Phosphatase 82 U/L (46-116) Total Protein 6.4 G/DL (6.4-8.2) Albumin 2.5 G/DL (3.4-5.0) L Globulin 3.9 g/dL Albumin/Globulin Ratio 0.6 (1.0-2.7) L Height (Feet): 5 Height (Inches): 6.00 Weight (Pounds): 180 Medications Current Medications Medications (Trade) Dose Ordered Sig/Celia Route PRN Reason Start Time Stop Time Status Last Admin Dose Admin Acetaminophen (Tylenol) 650 mg Q4H PRN ORAL fever 02/13/20 13:30 03/14/20 13:29 02/19/20 04:33 Amylase/Lipase/ Protease (Zenpep) 2 ea THREE TIMES A DAY ORAL 02/16/20 13:00 05/16/20 12:59 02/19/20 12:29 Dextrose (Dextrose 50%) 25 ml Q30M PRN IV Hypoglycemia 02/13/20 13:30 05/13/20 13:29 Dextrose (Dextrose 50%) 50 ml Q30M PRN IV Hypoglycemia 02/13/20 13:30 05/13/20 13:29 Diphenhydramine HCl (Benadryl) 25 mg Q6H PRN ORAL Itching/Pruritis 02/13/20 13:30 03/14/20 13:29 Docusate Sodium (Colace) 100 mg THREE TIMES A DAY ORAL 02/15/20 13:00 03/16/20 12:59 02/19/20 12:29 Fentanyl (Duragesic) 1 patch Q72H TDERMAL 02/19/20 15:00 02/26/20 14:59 Lactulose (Cephulac) 30 gm THREE TIMES A DAY ORAL 02/15/20 13:00 03/16/20 12:59 02/18/20 18:57 Lorazepam (Ativan 2mg/ml 1ml) 0.5 mg Q4H PRN IV For Anxiety 02/13/20 13:30 02/20/20 13:29 02/19/20 04:21 Metoclopramide HCl (Reglan) 10 mg Q6H PRN IVP servere nauasea 02/13/20 13:30 03/14/20 13:29 Mineral Oil (Fleet's Mineral Oil Enema) 133 ml EVERY OTHER DAY RECTAL 02/17/20 09:00 03/18/20 08:59 Miscellaneous Medication (fentaNYL Destruction) 1 ea Q72H MISC 02/22/20 14:59 5/16/20 14:58 Morphine Sulfate (Morphine Sulfate) 2 mg EVERY 4 HOURS PRN IVP Moderate Pain (Pain Scale 4-6) 02/13/20 13:30 02/20/20 13:29 02/19/20 01:10 Morphine Sulfate (Morphine Sulfate) 6 mg Q3H PRN IVP Severe Pain (Pain Scale 7-10) 02/15/20 11:59 02/22/20 11:58 02/19/20 12:30 Naloxone HCl (Narcan) 0.1 mg PRN IV Sedation scale 3 or 4 02/19/20 13:30 03/20/20 13:29 Nitroglycerin (Ntg) 0.4 mg Q5M X 3 DOSES PRN SL Prn Chest Pain 02/13/20 13:30 03/14/20 13:29 Ondansetron HCl (Zofran) 4 mg Q6H PRN IVP Nausea & Vomiting 02/13/20 13:30 03/14/20 13:29 Pantoprazole (Protonix) 40 mg ACBREAKFAST ORAL 02/20/20 06:30 03/21/20 06:29 Piperacillin Sod/ Tazobactam Sod 3.375 gm/Sodium Chloride 110 ml @ 27.5 mls/hr Q8H IVPB 02/14/20 10:00 02/21/20 09:59 02/19/20 09:21 Polyethylene Glycol (Miralax) 17 gm HSPRN PRN ORAL Constipation 02/13/20 13:30 03/14/20 13:29 Promethazine HCl (Phenergan) 25 mg Q6H PRN IM Refractory N/V 02/13/20 13:30 03/14/20 13:29 Temazepam (Restoril) 15 mg HSPRN PRN ORAL Insomnia 02/13/20 13:30 02/20/20 13:29 02/15/20 22:09 Assessment/Plan Assessment/Plan: (1) Abdominal pain (2) Splenic Rupture (3) Cervical DDD (4) Cervical Spondylosis (5) Cervical Radiculopathy seen dictated Lukasz Alexander Feb 19, 2020 14:24
[2020-02-19] MEDS ORDERED: Methocarbamol 500mg tab ORAL PRN (14:30)
--- NOTE | 2020-02-19 15:41 | NUR ---
*-* INSURANCE *-* UPDATED CLINICALS HAVE BEEN FAXED TO: BALAJI DIAZ T: [phone] F: [phone] AUTH #[id number]
[2020-02-19] MEDS: Lyrica 50mg cap ORAL SCH ×2 (15:46→21:21)
[2020-02-19 16:00] VITALS: BP 159/98
--- NOTE | 2020-02-19 18:19 | Internal Med Progress Note ---
Subjective Date of Service: Feb 19, 2020 Physician Name Ford Sevilla Attending Physician Moisés Richards MD Current Medications Medications (Trade) Dose Ordered Sig/Celia Route PRN Reason Start Time Stop Time Status Last Admin Dose Admin Acetaminophen (Tylenol) 650 mg Q4H PRN ORAL fever 02/13/20 13:30 03/14/20 13:29 02/19/20 15:49 Amylase/Lipase/ Protease (Zenpep) 2 ea THREE TIMES A DAY ORAL 02/16/20 13:00 05/16/20 12:59 02/19/20 17:19 Dextrose (Dextrose 50%) 25 ml Q30M PRN IV Hypoglycemia 02/13/20 13:30 05/13/20 13:29 Dextrose (Dextrose 50%) 50 ml Q30M PRN IV Hypoglycemia 02/13/20 13:30 05/13/20 13:29 Diphenhydramine HCl (Benadryl) 25 mg Q6H PRN ORAL Itching/Pruritis 02/13/20 13:30 03/14/20 13:29 Docusate Sodium (Colace) 100 mg THREE TIMES A DAY ORAL 02/15/20 13:00 03/16/20 12:59 02/19/20 17:19 Lactulose (Cephulac) 30 gm THREE TIMES A DAY ORAL 02/15/20 13:00 03/16/20 12:59 02/18/20 18:57 Lorazepam (Ativan 2mg/ml 1ml) 0.5 mg Q4H PRN IV For Anxiety 02/13/20 13:30 02/20/20 13:29 02/19/20 04:21 Methocarbamol (Robaxin) 500 mg Q8H PRN ORAL muscle spasm 02/19/20 14:30 03/20/20 14:29 Metoclopramide HCl (Reglan) 10 mg Q6H PRN IVP servere nauasea 02/13/20 13:30 03/14/20 13:29 Mineral Oil (Fleet's Mineral Oil Enema) 133 ml EVERY OTHER DAY RECTAL 02/17/20 09:00 03/18/20 08:59 Naloxone HCl (Narcan) 0.1 mg PRN IV Sedation scale 3 or 4 02/19/20 13:30 03/20/20 13:29 Nitroglycerin (Ntg) 0.4 mg Q5M X 3 DOSES PRN SL Prn Chest Pain 02/13/20 13:30 03/14/20 13:29 Ondansetron HCl (Zofran) 4 mg Q6H PRN IVP Nausea & Vomiting 02/13/20 13:30 03/14/20 13:29 Oxycodone/ Acetaminophen (Percocet 10/325) 1 tab Q4H PRN ORAL Severe Pain (Pain Scale 7-10) 02/19/20 14:30 02/26/20 14:29 02/19/20 15:46 Pantoprazole (Protonix) 40 mg ACBREAKFAST ORAL 02/20/20 06:30 03/21/20 06:29 Piperacillin Sod/ Tazobactam Sod 3.375 gm/Sodium Chloride 110 ml @ 27.5 mls/hr Q8H IVPB 02/14/20 10:00 02/21/20 09:59 02/19/20 17:20 Polyethylene Glycol (Miralax) 17 gm HSPRN PRN ORAL Constipation 02/13/20 13:30 03/14/20 13:29 Pregabalin (Lyrica) 50 mg Q8HR ORAL 02/19/20 15:00 04/04/20 14:59 02/19/20 15:46 Promethazine HCl (Phenergan) 25 mg Q6H PRN IM Refractory N/V 02/13/20 13:30 03/14/20 13:29 Temazepam (Restoril) 15 mg HSPRN PRN ORAL Insomnia 02/13/20 13:30 02/20/20 13:29 02/15/20 22:09 Allergies: Coded Allergies: IBUPROFEN (Unverified Allergy, Unknown, 02/13/20) ASPIRIN (Verified Adverse Reaction, Mild, ULCERS, 08/16/11) NAPROXEN (Verified Adverse Reaction, Mild, ULCERS, 05/19/12) NSAIDS (NON-STEROIDAL ANTI-INFLAMMA (Verified Adverse Reaction, Mild, ULCERS, 08/16/11) ROS Limited/Unobtainable: No Constitutional: Reports: no symptoms HEENT: Reports: no symptoms Cardiovascular: Reports: no symptoms Respiratory: Reports: no symptoms Gastrointestinal/Abdominal: Reports: abdominal pain Genitourinary: Reports: no symptoms Neurologic/Psychiatric: Reports: no symptoms Subjective 49 YO F admitted with LUQ pain. Now splenic rupture. Cover for Int Ceasar-DR Richards Objective Last Vital Signs Date Time Temp Pulse Resp B/P (MAP) Pulse Ox O2 Delivery O2 Flow Rate FiO2 02/19/20 16:40 99.9 02/19/20 16:00 78 18 159/98 (118) 99 02/19/20 09:00 Room Air Laboratory Tests Test 02/19/20 07:30 White Blood Count 7.8 K/UL (4.8-10.8) Red Blood Count 3.00 M/UL (4.20-5.40) L Hemoglobin 9.5 G/DL (12.0-16.0) L Hematocrit 28.1 % (37.0-47.0) L Mean Corpuscular Volume 94 FL (80-99) Mean Corpuscular Hemoglobin 31.6 PG (27.0-31.0) H Mean Corpuscular Hemoglobin Concent 33.8 G/DL (32.0-36.0) Red Cell Distribution Width 14.9 % (11.6-14.8) H Platelet Count 433 K/UL (150-450) Mean Platelet Volume 4.6 FL (6.5-10.1) L Neutrophils (%) (Auto) 61.1 % (45.0-75.0) Lymphocytes (%) (Auto) 17.4 % (20.0-45.0) L Monocytes (%) (Auto) 17.6 % (1.0-10.0) H Eosinophils (%) (Auto) 2.7 % (0.0-3.0) Basophils (%) (Auto) 1.3 % (0.0-2.0) Sodium Level 139 MMOL/L (136-145) Potassium Level 3.7 MMOL/L (3.5-5.1) Chloride Level 102 MMOL/L (98-107) Carbon Dioxide Level 31 MMOL/L (21-32) Anion Gap 6 mmol/L (5-15) Blood Urea Nitrogen 9 mg/dL (7-18) Creatinine 0.8 MG/DL (0.55-1.30) Estimat Glomerular Filtration Rate > 60 mL/min (>60) Glucose Level 98 MG/DL (74-106) Calcium Level 8.9 MG/DL (8.5-10.1) Total Bilirubin 0.5 MG/DL (0.2-1.0) Aspartate Amino Transf (AST/SGOT) 35 U/L (15-37) Alanine Aminotransferase (ALT/SGPT) 33 U/L (12-78) Alkaline Phosphatase 82 U/L (46-116) Total Protein 6.4 G/DL (6.4-8.2) Albumin 2.5 G/DL (3.4-5.0) L Globulin 3.9 g/dL Albumin/Globulin Ratio 0.6 (1.0-2.7) L Intake and Output 02/18/20 02/19/20 19:00 07:00 Intake Total 730 ml 720 ml Output Total 1000 ml Balance -270 ml 720 ml Intake Oral 730 ml 720 ml Output Urine Total 1000 ml # Voids 2 # Bowel Movements 2 1 Objective PHYSICAL EXAMINATION: GENERAL: Patient is well-developed, well-nourished female, in no apparent distress. HEENT: Eyes, pupils are equal and responsive to light and accommodation. Extraocular movements are intact. NECK: Supple without lymphadenopathy. CHEST: Lungs are clear to auscultation bilaterally without wheezes or rales. CARDIOVASCULAR: Tachycardic, regular rhythm. S1, S2 normal without murmurs, rubs, or gallops. ABDOMEN: Soft, diffusely tender with decreased bowel sounds. No hepatosplenomegaly. Currently no rebound. There is voluntary guarding to the left upper quadrant to palpation. RECTAL/GENITAL: Not performed. NEUROLOGIC: Cranial nerves II through XII are grossly intact without focal deficits. Motor strength is 5/5 bilaterally. Deep tendon reflexes are 2+ plantar. Assessment/Plan Assessment/Plan ASSESSMENT: This is a 49-year-old female. 1. Splenic rupture. 2. Left upper quadrant abdominal pain. 3. Severe anemia. 4. Melena. 5. Hypertension. 6. Alcohol dependence. 7. Alcoholic steatosis. TREATMENT: 1. Splenic rupture. A General Surgery consultation has been obtained with Dr. Jason Cross. We will follow recommendations of Surgery. Possible splenectomy if anemia worsens per surgery 2. Left upper quadrant abdominal pain. This is probably secondary to splenic rupture as above. 3. Severe anemia. Secondary to splenic rupture as above. S/P transfusion 2 units PRBC. Peptic ulcer disease and bleeding gastric ulcer cannot be excluded. A Gastroenterology consultation has been obtained with Dr. Valerio Elias. 4. Melena. This may be secondary to gastrointestinal hemorrhage. Patient has been started empirically on Protonix. 5. Hypertension. Patient is currently hypotensive. Hold antihypertensive medications. 6. Alcohol dependence. 7. Alcoholic steatosis. 8. Transfer to [facility] when bed available and 2nd COVID 19 negative Ford Sevilla MD Feb 19, 2020 18:19
--- NOTE | 2020-02-19 19:30 | NUR ---
NURSE NOTES: RECEIVED REPORT FROM JONNA LIMA. PATIENT AWAKE IN BED, USING HER LAPTOP. ALERT, OX4, ABLE TO MAKE NEEDS KNOWN. PATIENT COMPLAINS OF LEFT LOWER ABDOMINAL PAIN THAT SHE RATES A 6/10- WAS INFORMED HER PAIN MEDICATION IS NOT DUE YET, PATIENT VERBALIZED UNDERSTANDING AND WILL WAIT FOR WHEN IT'S DUE. BREATHING IS EVEN AND UNLABORED ON ROOM AIR, NO S/SX OF DISTRESS AT THIS TIME. IV SITE ON LEFT HAND ASYMPTOMATIC, PATENT AND INTACT WITH PRESCRIBED ANTIBIOTIC RUNNING AT THIS TIME. PROVIDED PATIENT WITH REQUESTED PAPERWORK TO RELEASE MEDICAL RECORDS. BED LOCKED AND IN LOWEST POSITION WITH SIDERAILS UP X 2. CALL LIGHT WITHIN REACH. WILL CONTINUE TO MONITOR FOR ANY CHANGES.
--- NOTE | 2020-02-19 19:45 | Consultation ---
DATE OF CONSULTATION: 02/19/2020 PAIN MANAGEMENT CONSULTATION CONSULTING PHYSICIAN: Celso Hill M.D. REFERRING PHYSICIAN: Cuate Goel M.D. PHYSICIAN NURSE EXAMINER: Jennifer Stevens CHIEF COMPLAINT: Abdominal pain. HISTORY OF PRESENT ILLNESS: This is a 49-year-old female, who is being seen on the telemetry floor of [facility] for initial pain management consultation. The patient was admitted under the care of Dr. Richards and Dr. Sevilla with complaints of abdominal pain, found to have splenic rupture, has been seen by General surgeon who does not recommend any surgical intervention at this time; however, the patient is having severe pain. She is on morphine 2 mg every 4 hours as needed for severe pain and morphine 6 mg IV every 3 hours as needed for severe pain. However she was having more pain and now the fentanyl patch was applied as per Dr. Goel 12 mcg every 72 hours. However while discussing with the patient, the patient seems to understand and does not want to start fentanyl patch, discussed care about starting her on Percocet which she takes as an outpatient, she seems to understand. She is also being ruled out for COVID-19 at this time. At this time, we were consulted so that the patient would have adequate pain control here in the hospital. PAST MEDICAL HISTORY: GI bleed due to peptic ulcer disease, chronic alcohol pancreatitis, hypertension, alcohol dependence, depression, alcohol steatosis, and cervical radiculopathy. PAST SURGICAL HISTORY: Bret-en-Y and gastric bypass. SOCIAL HISTORY: Smokes tobacco. She has history drinking alcohol. Denies IV drug abuse. ALLERGIES: Ibuprofen, aspirin, Compazine. MEDICATIONS: Percocet, lisinopril, Paxil, Zofran. REVIEW OF SYSTEMS: Denies rash, fever, chills, sweating, dizziness, drowsiness, blurred vision, sore throat, change in weight. No shortness of breath, chest pain, palpitations. No nausea, vomiting. No nausea, vomiting, diarrhea, blood in stool or urine. No dysuria. She is complaining of abdominal pain. PHYSICAL EXAMINATION: GENERAL: Alert, awake, and oriented. VITAL SIGNS: Blood pressure 132/94, heart rate 68, oxygen saturation 98%, respiratory rate is 18, temperature 98.8 degrees Fahrenheit. HEENT: PERRLA. NECK: Range of motion is reduced due to the patient's condition with tenderness to paracervical muscles. No adenopathy. LUNGS: Decreased breath sounds bilaterally. HEART: S1 and S2 regular. ABDOMEN: Tenderness to palpation. BACK: Range of motion is decreased in flexion and extension. EXTREMITIES: Upper and lower extremity range of motion is decreased due to the patient's condition. No cyanosis. No clubbing. Sensory is reduced. Reflexes are not obtainable. No adenopathy. ASSESSMENT AND PLAN: This is a 49-year-old female with cervical degenerative disease, cervical spondylosis, cervical radiculopathy, abdominal pain, splenic rupture. The patient will be discontinued off the morphine and fentanyl and will be started on Percocet 10/325 one tablet every 4 hours as needed for severe pain, Robaxin 500 mg tablet every 8 hours for muscle spasms and Lyrica 50 mg three times a day. The patient was discussed with Dr. Hill and Dr. Hill concurred. We will follow up with the patient. Thank you very much for the courtesy of this consultation. Celso Hill M.D. ANTON Stevens DR: Seth JOB#: [id number] CC:
[2020-02-19 20:00] VITALS: BP 148/88
--- NOTE | 2020-02-19 20:28 | NUR ---
HAND-OFF: Report given to JONNA Padilla. Pt in stable condition, endorsed plan of care.
--- NOTE | 2020-02-19 20:39 | NUR ---
NURSE NOTES: Pt gave a list of her "home" meds to Dr Goel and hand it over to RN, saying to add to home meds (med recon) of pt. Tried to enter in the system, but it does not allow to add more meds. Called pharmacy before faxing the list of meds from pt, per pharmacy ([facility]), she is also unable to add meds to list. Will endorse to PM nurse.
[2020-02-20] VITALS: BP 131/78
[2020-02-20] MEDS: Piperacillin/Tazobactam 3.375 GM in NS 110 ML IVPB SCH ×2 (02:17→09:16)
[2020-02-20 04:00] VITALS: BP 145/80
[2020-02-20] MEDS: Lyrica 50mg cap ORAL SCH ×2 (05:22→13:32)
--- NOTE | 2020-02-20 07:41 | NUR ---
HAND-OFF: Report given to JONNA VEGA. PLAN OF CARE ENDORSED. NEED TO FOLLOW UP WITH DR. MARION REGARDING ISOLATION D/C. CALLED AND S/W JESSE AT 0731. AWAITING CALL BACK.
[2020-02-20] MEDS: Docusate 100mg cap ORAL SCH ×2 (08:19→12:03)
[2020-02-20] MEDS: Pancrelipase Dr Cap ORAL SCH ×2 (08:19→12:03)
[2020-02-20] MEDS: Lactulose 20gm/30ml UDC ORAL SCH ×2 (08:19→12:03)
[2020-02-20 08:25] VITALS: BP 150/86
--- NOTE | 2020-02-20 08:25 | General Progress Note ---
Assessment/Plan Problem List: (1) Fatty liver ICD Codes: K76.0 - Fatty (change of) liver, not elsewhere classified SNOMED: 784525634 (2) Elevated LFTs ICD Codes: R79.89 - Other specified abnormal findings of blood chemistry SNOMED: 712950196, 456740501 (3) Diverticulosis ICD Codes: K57.90 - Diverticulosis of intestine, part unspecified, without perforation or abscess without bleeding SNOMED: 993387446 (4) Anemia ICD Codes: D64.9 - Anemia, unspecified SNOMED: 512859816 (5) h/o panceatitis (6) History of gastric bypass ICD Codes: Z98.84 - Bariatric surgery status SNOMED: 244208029 (7) ETOH abuse ICD Codes: F10.10 - Alcohol abuse, uncomplicated SNOMED: 90641469 (8) Ovarian cyst ICD Codes: N83.20 - Unspecified ovarian cysts SNOMED: 76070335 (9) Alcohol intoxication ICD Codes: F10.129 - Alcoholabuse with intoxication, unspecified SNOMED: 29343614 (10) Abdominal pain ICD Codes: R10.9 - Unspecified abdominal pain SNOMED: 92865932 (11) Splenic rupture ICD Codes: S36.09XA - Other injury of spleen, initial encounter SNOMED: 522676441 Assessment/Plan: ppi fu H&H prn blood transfusion fu labs Creon on diet pending transfer to [facility] Subjective Allergies: Coded Allergies: IBUPROFEN (Unverified Allergy, Unknown, 02/13/20) ASPIRIN (Verified Adverse Reaction, Mild, ULCERS, 08/16/11) NAPROXEN (Verified Adverse Reaction, Mild, ULCERS, 05/19/12) NSAIDS (NON-STEROIDAL ANTI-INFLAMMA (Verified Adverse Reaction, Mild, ULCERS, 08/16/11) Objective Last 24 Hour Vital Signs Date Time Temp Pulse Resp B/P (MAP) Pulse Ox O2 Delivery O2 Flow Rate FiO2 02/20/20 04:00 99.7 66 18 145/80 (101) 99 02/20/20 03:41 80 02/20/20 03:29 99.0 02/20/20 02:47 101.1 02/20/20 00:00 99.7 68 18 131/78 (95) 100 02/19/20 23:30 85 02/19/20 21:00 Room Air Room Air 02/19/20:00 72 02/19/20 20:00 100.6 74 20 148/88 (108) 99 02/19/20 16:40 99.9 02/19/20 16:00 100.4 78 18 159/98 (118) 99 02/19/20 15:08 85 02/19/20 12:00 98.8 66 18 142/94 (110) 95 02/19/20 11:50 65 02/19/20 09:00 Room Air Intake and Output 02/19/20 02/20/20 19:00 07:00 Intake Total 600 ml 800 ml Balance 600 ml 800 ml Intake Oral 600 ml 800 ml # Voids 4 3 # Bowel Movements 1 Height (Feet): 5 Height (Inches): 6.00 Weight (Pounds): 180 General Appearance: alert EENT: normal ENT inspection Neck: supple Cardiovascular: normal rate Respiratory/Chest: lungs clear Abdomen: soft, hypoactive bowel sounds Extremities: non-tender Valerio Elias MD Feb 20, 2020 08:25
[2020-02-20 08:59] LABS: BASOPHILS % (AUTO) 1.4 % (0.0-2.0); EOSINOPHILS % (AUTO) 1.3 % (0.0-3.0); HEMATOCRIT 30.9 % (37.0-47.0); HEMOGLOBIN 10.3 G/DL (12.0-16.0); LYMPHOCYTES % (AUTO) 11.7 % (20.0-45.0); MEAN CORPUSCULAR VOLUME 94 FL (80-99); MONOCYTES % (AUTO) 14.8 % (1.0-10.0); NEUTROPHILS % (AUTO) 70.8 % (45.0-75.0); PLATELET COUNT 490 K/UL (150-450); RED BLOOD COUNT 3.27 M/UL (4.20-5.40); RED CELL DISTRIBUTION WIDTH 14.5 % (11.6-14.8); WHITE BLOOD COUNT 9.5 K/UL (4.8-10.8)
[2020-02-20 09:10] LABS: BLOOD UREA NITROGEN 9 mg/dL (7-18); CALCIUM 8.6 MG/DL (8.5-10.1); CHLORIDE 101 MMOL/L (98-107); CREATININE 0.9 MG/DL (0.55-1.30); POTASSIUM 3.6 MMOL/L (3.5-5.1); SODIUM 139 MMOL/L (136-145)
[2020-02-20] MEDS: LORazepam Inj 2mg/ml 1ml IV PRN (09:21)
[2020-02-20 09:24] LABS: CARBON DIOXIDE 25 MMOL/L (21-32)
--- NOTE | 2020-02-20 09:31 | NUR ---
RD ASSESSMENT & RECOMMENDATIONS SEE CARE ACTIVITY FOR COMPLETE ASSESSMENT DAILY ESTIMATED NEEDS: Needs based on Liver dz, cardiac 64.8kg abw 25-30 kcals/kg 9546-2059 total kcals 1-1.5 g protein/kg 65-97 g total protein 25-30 mL/kg 1574-9050 total fluid mLs NUTRITION DIAGNOSIS: Decreased fat and sodium needs r/t liver dysfunction as evidenced by pt w/ alcohol dependence, alcoholic steatosis and h/o HTN w/ elev BP (150/86) CURRENT DIET: Regular PO DIET RECOMMENDATIONS: -> REC DIET CHANGE TO LOW FAT/ LOW NA ADDITIONAL RECOMMENDATIONS: 1) Obtain a standing weight as able 2) Monitor BG, need for carb control diet
--- NOTE | 2020-02-20 10:30 | NUR ---
CASE MANAGEMENT:REVIEW 02/19/20 SI: LUQ ABDOMINAL PAIN. ANEMIA..S/P 1 UNIT PRBC'S SPLENIC RUPTURE. COVID 19 NOT DETECTED H/O ETOH ABUSE. PUD. GASTRIC BYPASS 100.6 66 18 150/86 99% ON RA H/H-10.3/30.9 GLUCOSE+147 IS: PROTONIX PO QAM LYRICA PO Q8HRS ZENPAP PO TID LACTULOSE PO TID IV ATIVAN Q4HRS PRN : TELEMETRY STATUS DCP: PATIENT IS FROM HOME PLAN: COVID 19 NEGATIVE X2...TRANSFER TO [facility] CALLED [facility] THIS MORNING AND SPOKE WITH DEMETRI WHO TRANSFERRED ME TO TARA WHO TRANSFERRED ME TO JOSEFA
--- NOTE | 2020-02-20 10:45 | NUR ---
DISCHARGE PLANNING FAXED BOTH COVID REPORTS TO [facility] CALLED [facility] AND SPOKE WITH DEMETRI WHO TRANSFERRED ME TO TARA WHO TRANSFERRED ME TO JOSEFAAntonette JOSEFA REQUESTED ADDITIONAL INFORMATION BE FAXED TO HER IN ORDER TO FACILITATE THIS TRANSFER TO [facility] Addendum: 02/20/20 at 1338 by RAEGAN MILAN LVN LVN FAXED CHEST XRAY RESULTS TO [facility]
--- NOTE | 2020-02-20 11:34 | Diagnostic Imaging Report ---
Indication: Dyspnea Technique: One view of the chest Comparison: 07/11/2017 Findings: The left lung base is opacified. The left upper lung, right lung and pleural space are clear. The heart is borderline enlarged. Impression: Left basilar opacity, likely pleural fluid, possibly some consolidation as well. Borderline cardiomegaly
--- NOTE | 2020-02-20 11:39 | NUR ---
*-* INSURANCE *-* UPDATED CLINICALS HAVE BEEN FAXED TO: BALAJI DIAZ T: [phone] F: [phone] AUTH #[id number]
--- NOTE | 2020-02-20 11:49 | NUR ---
RADIOLOGY DEPT., CHEST X-RAY DONE.-P.DYE
[2020-02-20 12:00] VITALS: BP 140/86
--- NOTE | 2020-02-20 12:49 | Pulmonology Progress Note ---
Assessment/Plan Problems: (1) Fever (2) Intractable abdominal pain (3) Splenic rupture (4) PUD (peptic ulcer disease) (5) History of gastric bypass (6) ETOH abuse Assessment/Plan pain is better controlled with Percocet f/u cultures stable to transfer apparently doesn't need any surgery h/h stable add laxatives Subjective Constitutional: Reports: no symptoms HEENT: Repors: no symptoms Allergies: Coded Allergies: IBUPROFEN (Unverified Allergy, Unknown, 02/13/20) ASPIRIN (Verified Adverse Reaction, Mild, ULCERS, 08/16/11) NAPROXEN (Verified Adverse Reaction, Mild, ULCERS, 05/19/12) NSAIDS (NON-STEROIDAL ANTI-INFLAMMA (Verified Adverse Reaction, Mild, ULCERS, 08/16/11) Objective Last 24 Hour Vital Signs Date Time Temp Pulse Resp B/P (MAP) Pulse Ox O2 Delivery O2 Flow Rate FiO2 02/20/20 09:00 Room Air Room Air 02/20/20 08:25 100.6 66 18 150/86 (107) 99 02/20/20 07:07 100.6 02/20/20 04:00 99.7 66 18 145/80 (101) 99 02/20/20 03:41 80 02/20/20 03:29 99.0 02/20/20 00:00 99.7 68 18 131/78 (95) 100 02/19/20 23:30 85 02/19/20 21:00 Room Air Room Air 02/19/20 20:00 72 02/19/20 20:00 100.6 74 20 148/88 (108) 99 02/19/20 16:40 99.9 02/19/20 16:00 100.4 78 18 159/98 (118) 99 02/19/20 15:08 85 Intake and Output 02/19/20 02/20/20 19:00 07:00 Intake Total 600 ml 800 ml Balance 600 ml 800 ml Intake Oral 600 ml 800 ml # Voids 4 3 # Bowel Movements 1 General Appearance: WD/WN HEENT: normocephalic, atraumatic Cardiovascular: normal peripheral pulses Abdomen: normal bowel sounds, soft, non tender Genitourinary: normal external genitalia Extremities: no clubbing 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 Laboratory Tests 02/20/20 08:05: White Blood Count 9.5, Red Blood Count 3.27L, Hemoglobin 10.3L, Hematocrit 30.9L , Mean Corpuscular Volume 94, Mean Corpuscular Hemoglobin 31.4H, Mean Corpuscular Hemoglobin Concent 33.3, Red Cell Distribution Width 14.5, Platelet Count 490H, Mean Platelet Volume 4.4L, Neutrophils (%) (Auto) 70.8, Lymphocytes (%) (Auto) 11.7L, Monocytes (%) (Auto) 14.8H, Eosinophils (%) (Auto) 1.3, Basophils (%) (Auto) 1.4, Sodium Level 139, Potassium Level 3.6, Chloride Level 101, Carbon Dioxide Level 25, Blood Urea Nitrogen 9, Creatinine 0.9, Estimat Glomerular Filtration Rate > 60, Glucose Level 147H, Calcium Level 8.6 Current Medications Medications (Trade) Dose Ordered Sig/Celia Route PRN Reason Start Time Stop Time Status Last Admin Dose Admin Acetaminophen (Tylenol) 650 mg Q4H PRN ORAL fever 02/13/20 13:30 03/14/20 13:29 02/20/20 02:59 Amylase/Lipase/ Protease (Zenpep) 2 ea THREE TIMES A DAY ORAL 02/16/20 13:00 05/16/20 12:59 02/20/20 12:03 Dextrose (Dextrose 50%) 25 ml Q30M PRN IV Hypoglycemia 02/13/20 13:30 05/13/20 13:29 Dextrose (Dextrose 50%) 50 ml Q30M PRN IV Hypoglycemia 02/13/20 13:30 05/13/20 13:29 Diphenhydramine HCl (Benadryl) 25 mg Q6H PRN ORAL Itching/Pruritis 02/13/20 13:30 03/14/20 13:29 Docusate Sodium (Colace) 100 mg THREE TIMES A DAY ORAL 02/15/20 13:00 03/16/20 12:59 02/20/20 12:03 Lactulose (Cephulac) 30 gm THREE TIMES A DAY ORAL 02/15/20 13:00 03/16/20 12:59 02/20/20 12:03 Lorazepam (Ativan 2mg/ml 1ml) 0.5 mg Q4H PRN IV For Anxiety 02/13/20 13:30 02/20/20 13:29 02/20/20 09:21 Methocarbamol (Robaxin) 500 mg Q8H PRN ORAL muscle spasm 02/19/20 14:30 03/20/20 14:29 Metoclopramide HCl (Reglan) 10 mg Q6H PRN IVP servere nauasea 02/13/20 13:30 03/14/20 13:29 Mineral Oil (Fleet's Mineral Oil Enema) 133 ml EVERY OTHER DAY RECTAL 02/17/20 09:00 03/18/20 08:59 Naloxone HCl (Narcan) 0.1 mg PRN IV Sedation scale 3 or 4 02/19/20 13:30 03/20/20 13:29 Nitroglycerin (Ntg) 0.4 mg Q5M X 3 DOSES PRN SL Prn Chest Pain 02/13/20 13:30 03/14/20 13:29 Ondansetron HCl (Zofran) 4 mg Q6H PRN IVP Nausea & Vomiting 02/13/20 13:30 03/14/20 13:29 Oxycodone/ Acetaminophen (Percocet 10/325) 1 tab Q4H PRN ORAL Severe Pain (Pain Scale 7-10) 02/19/20 14:30 02/26/20 14:29 02/20/20 12:06 Pantoprazole (Protonix) 40 mg ACBREAKFAST ORAL 02/20/20 06:30 03/21/20 06:29 02/20/20 06:37 Piperacillin Sod/ Tazobactam Sod 3.375 gm/Sodium Chloride 110 ml @ 27.5 mls/hr Q8H IVPB 02/14/20 10:00 02/21/20 09:59 02/20/20 09:16 Polyethylene Glycol (Miralax) 17 gm HSPRN PRN ORAL Constipation 02/13/20 13:30 03/14/20 13:29 Pregabalin (Lyrica) 50 mg Q8HR ORAL 02/19/20 15:00 04/04/20 14:59 02/20/20 05:22 Promethazine HCl (Phenergan) 25 mg Q6H PRN IM Refractory N/V 02/13/20 13:30 03/14/20 13:29 Temazepam (Restoril) 15 mg HSPRN PRN ORAL Insomnia 02/13/20 13:30 4/14/20 13:29 02/15/20 22:09 Cuate Goel MD Feb 20, 2020 12:49
[2020-02-20] MEDS ORDERED: PERCOCET 10-321 EACH ORAL (12:54)
[2020-02-20] MEDS ORDERED: LYRICA50 MG ORAL (12:54)
[2020-02-20] MEDS ORDERED: PHENERGAN25 MG/1 ML IM (12:54)
--- NOTE | 2020-02-20 13:17 | Surgery Progress Note ---
Surgery Progress Note Subjective Additional Comments pain improved tolerating diet covid neg x 2 labs noted. h/h stable plt elevated low grade fevers Objective Last 24 Hour Vital Signs Date Time Temp Pulse Resp B/P (MAP) Pulse Ox O2 Delivery O2 Flow Rate FiO2 02/20/20 12:36 99.5 02/20/20 09:00 Room Air Room Air 02/20/20 08:25 100.6 66 18 150/86 (107) 99 02/20/20 04:00 99.7 66 18 145/80 (101) 99 02/20/20 03:41 80 02/20/20 03:29 99.0 02/20/20 00:00 99.7 68 18 131/78 (95) 100 02/19/20 23:30 85 02/19/20 21:00 Room Air Room Air 02/19/20 20:00 72 02/19/20 20:00 100.6 74 20 148/88 (108) 99 02/19/20 16:40 99.9 02/19/20 16:00 100.4 78 18 159/98 (118) 99 02/19/20 15:08 85 I&O Intake and Output 02/19/20 02/20/20 19:00 07:00 Intake Total 600 ml 800 ml Balance 600 ml 800 ml Intake Oral 600 ml 800 ml # Voids 4 3 # Bowel Movements 1 Cardiovascular: RSR Respiratory: clear Abdomen: soft, tenderness, present bowel sounds, non-distended Extremities: no edema, no tenderness, no cyanosis Laboratory Tests Test 02/20/20 08:05 White Blood Count 9.5 K/UL (4.8-10.8) Red Blood Count 3.27 M/UL (4.20-5.40) L Hemoglobin 10.3 G/DL (12.0-16.0) L Hematocrit 30.9 % (37.0-47.0) L Mean Corpuscular Volume 94 FL (80-99) Mean Corpuscular Hemoglobin 31.4 PG (27.0-31.0) H Mean Corpuscular Hemoglobin Concent 33.3 G/DL (32.0-36.0) Red Cell Distribution Width 14.5 % (11.6-14.8) Platelet Count 490 K/UL (150-450) H Mean Platelet Volume 4.4 FL (6.5-10.1) L Neutrophils (%) (Auto) 70.8 % (45.0-75.0) Lymphocytes (%) (Auto) 11.7 % (20.0-45.0) L Monocytes (%) (Auto) 14.8 % (1.0-10.0) H Eosinophils (%) (Auto) 1.3 % (0.0-3.0) Basophils (%) (Auto) 1.4 % (0.0-2.0) Sodium Level 139 MMOL/L (136-145) Potassium Level 3.6 MMOL/L (3.5-5.1) Chloride Level 101 MMOL/L (98-107) Carbon Dioxide Level 25 MMOL/L (21-32) Blood Urea Nitrogen 9 mg/dL (7-18) Creatinine 0.9 MG/DL (0.55-1.30) Estimat Glomerular Filtration Rate > 60 mL/min (>60) Glucose Level 147 MG/DL (74-106) H Calcium Level 8.6 MG/DL (8.5-10.1) Plan Problems: (1) Splenic rupture Assessment & Plan: The spleen is markedly abnormal. The normally enhancing spleen demonstrates distortion of the anatomy and is surrounded by a large area of mixed attenuation which measures approximately 9 x 7 x 9.5 cm. High attenuation fluid is also seen within the left paracolic gutter as well as is under the left hemidiaphragm and adjacent to the left hepatic lobe. A small sliver of high attenuation fluid is also seen over the dome of the right hepatic lobe and there is a moderate amount of the same in the pelvis.. There is some infiltration of the left upper quadrant retroperitoneal and omental fat. The enhancing portion of the spleen for the most part enhances normally, although there is some heterogeneity to the enhancement of the lower pole. This is a new finding. Previously the spleen was normal in size, attenuation, and enhancement. The splenic vein is diffusely small in caliber, and patency near the hilum is uncertain. Previously this was larger in caliber. The previously demonstrated acute pancreatitis changes have resolved. The liver is mildly enlarged and is hypoattenuating. Again demonstrated are a few subcentimeter low-attenuation lesions which are too small to characterize. These are somewhat less apparent than on the prior study. The gallbladder is mildly distended. No biliary ductal dilatation. The pancreas is atrophic and contains numerous calcifications. The kidneys are unremarkable. No retroperitoneal or mesenteric mass or adenopathy. No pelvic mass or adenopathy. The appendix is normal. There is colonic diverticulosis. No evidence of acute diverticulitis. No small bowel distention. No free or loculated intraperitoneal gas or fluid is evident. There is evidence of prior gastric bypass surgery. The lung bases demonstrate mosaic perfusion which is not evident on the prior exam, and there is borderline groundglass opacity in the left costophrenic sulcus. The bones are unremarkable. Impression: Markedly abnormal spleen, surrounded by 9 x 7 x 9.5 cm area of mixed attenuation, as well as high attenuation fluid, presumably blood, within the peritoneal space. Findings most likely represent splenic rupture with large subcapsular hematoma and associated hemoperitoneum. Note also uncertain patency of the splenic vein near the hilum as well as evidence of a few small splenic hilar varices. This is new since the previous study Previously reported acute pancreatitis changes have resolved. There is now pancreatic atrophy and extensive calcification which is a new finding and presumably a sequela of the previously demonstrated acute pancreatitis Enlarged fatty liver, also previously described Mosaic perfusion at the lung bases with some borderline groundglass opacity in the left costophrenic sulcus. Findings are nonspecific, most likely represent dependent atelectatic changes but other etiologies also possible. Colonic diverticulosis. No evidence of acute diverticulitis (2) Abdominal pain Assessment & Plan: abdominal pain for [address] with possible splenic ruptures anemia leukocytosis no active extravasation noted HD stable exam with discomfort but no peritonitis will need to monitor closely admit for monitoring npo iv fluids tend h/h abd exams t/s prbc discussed with patient. if h/h drops, worsening pain, deterioration will need to proceed to OR for exploration otherwise will monitor closely with resuscitation stable trend h/h hold surgical intervention states feeling better will monitor closely thank you will follow with recs improved states pain luq from coughing just prior to incident. no trauma denies but states massive coughing prior to this h/h stable start diet repeat h/h possible repeat CT in AM trend h/h H/h stable labs noted plt up low grade fevers likely from splenic injury covid neg x 2 no acute surgical intervention planned at this time recommend repeat CT A/P with contrast in a few weeks to eval spleen Jason Cross Feb 20, 2020 13:17
--- NOTE | 2020-02-20 13:28 | Infectious Diseases Prog Note ---
Assessment/Plan Assessment/Plan Fever, persistent- ?2ry to hematoma R/o probable bacteremia Mild leukocytosis, SP Lymphopenia Transaminitis, SP -02/18 Bcx p CAP-high suspicion for COVID19 despite neg test SARS CoV PCR negative x2 02/19 CXR: Left basilar opacity, likely pleural fluid, possibly some consolidation as well. Borderline cardiomegaly CT abd: Mosaic perfusion at lung bases with some borderline groundglass opacity in the left costophrenic sulcus. Findings are nonspecific, most likely represent dependent atelectatic changes but other etiologies also possible. Splenic rupture with large subcapsular hematoma and hemoperitoneum 02/12 CT A/P: Markedly abnormal spleen, surrounded by 9 x 7 x 9.5 cm area of mixed attenuation, as well as high attenuation fluid, presumably blood, within the peritoneal space. Findings most likely represent splenic rupture with large subcapsular hematoma and associated hemoperitoneum. Note also uncertain patency of the splenic vein near the hilum as well as evidence of a few small splenic hilar varices. This is new since the previous study. Previously reported acute pancreatitis changes have resolved. There is now pancreatic atrophy and extensive calcification which is a new finding and presumably a sequela of the previously demonstrated acute pancreatitis. Enlarged fatty liver, also previously described. Colonic diverticulosis. No evidence of acute diverticulitis PUD HTN EtOH abuse Depression Plan: continue zosyn #8 Will continue COVID19 isolation for now given unclear source of fever (although could be related to hematoma) and presence of GGO on CT. Will continue isolation for 7 days from onset of symptoms and 72 hours fever free continue COVID isolation monitor temp and CBC monitor resp status f/u Bcx CT chest DW RN Subjective Allergies: Coded Allergies: IBUPROFEN (Unverified Allergy, Unknown, 02/13/20) ASPIRIN (Verified Adverse Reaction, Mild, ULCERS, 08/16/11) NAPROXEN (Verified Adverse Reaction, Mild, ULCERS, 05/19/12) NSAIDS (NON-STEROIDAL ANTI-INFLAMMA (Verified Adverse Reaction, Mild, ULCERS, 08/16/11) Subjective Tm 100.6 at RA no leukocytosis Bcx p 2nd COVID neg Objective Vital Signs Last 24 Hour Vital Signs Date Time Temp Pulse Resp B/P (MAP) Pulse Ox O2 Delivery O2 Flow Rate FiO2 02/20/20 12:36 99.5 02/20/20 09:00 Room Air Room Air 02/20/20 08:25 100.6 66 18 150/86 (107) 99 02/20/20 04:00 99.7 66 18 145/80 (101) 99 02/20/20 03:41 80 02/20/20 03:29 99.0 02/20/20 00:00 99.7 68 18 131/78 (95) 100 02/19/20 23:30 85 02/19/20 21:00 Room Air Room Air 02/19/20 20:00 72 02/19/20 20:00 100.6 74 20 148/88 (108) 99 02/19/20 16:40 99.9 02/19/20 16:00 100.4 78 18 159/98 (118) 99 02/19/20 15:08 85 Height (Feet): 5 Height (Inches): 6.00 Weight (Pounds): 180 Objective Gen: NAD. well nourished. well hydrated CV: RRR. S1+S2. no rubs or gallop. Resp: RRR. no wheezes or crackles. equal chest rise. unlabored. Abd: soft. normoactive Bs+. L sided tenderness Laboratory Tests Test 02/20/20 08:05 White Blood Count 9.5 K/UL (4.8-10.8) Red Blood Count 3.27 M/UL (4.20-5.40) L Hemoglobin 10.3 G/DL (12.0-16.0) L Hematocrit 30.9 % (37.0-47.0) L Mean Corpuscular Volume 94 FL (80-99) Mean Corpuscular Hemoglobin 31.4 PG (27.0-31.0) H Mean Corpuscular Hemoglobin Concent 33.3 G/DL (32.0-36.0) Red Cell Distribution Width 14.5 % (11.6-14.8) Platelet Count 490 K/UL (150-450) H Mean Platelet Volume 4.4 FL (6.5-10.1) L Neutrophils (%) (Auto) 70.8 % (45.0-75.0) Lymphocytes (%) (Auto) 11.7 % (20.0-45.0) L Monocytes (%) (Auto) 14.8 % (1.0-10.0) H Eosinophils (%) (Auto) 1.3 % (0.0-3.0) Basophils (%) (Auto) 1.4 % (0.0-2.0) Sodium Level 139 MMOL/L (136-145) Potassium Level 3.6 MMOL/L (3.5-5.1) Chloride Level 101 MMOL/L (98-107) Carbon Dioxide Level 25 MMOL/L (21-32) Blood Urea Nitrogen 9 mg/dL (7-18) Creatinine 0.9 MG/DL (0.55-1.30) Estimat Glomerular Filtration Rate > 60 mL/min (>60) Glucose Level 147 MG/DL (74-106) H Calcium Level 8.6 MG/DL (8.5-10.1) Current Medications Medications (Trade) Dose Ordered Sig/Celia Route PRN Reason Start Time Stop Time Status Last Admin Dose Admin Acetaminophen (Tylenol) 650 mg Q4H PRN ORAL fever 02/13/20 13:30 03/14/20 13:29 02/20/20 02:59 Amylase/Lipase/ Protease (Zenpep) 2 ea THREE TIMES A DAY ORAL 02/16/20 13:00 05/16/20 12:59 02/20/20 12:03 Dextrose (Dextrose 50%) 25 ml Q30M PRN IV Hypoglycemia 02/13/20 13:30 05/13/20 13:29 Dextrose (Dextrose 50%) 50 ml Q30M PRN IV Hypoglycemia 02/13/20 13:30 05/13/20 13:29 Diphenhydramine HCl (Benadryl) 25 mg Q6H PRN ORAL Itching/Pruritis 02/13/20 13:30 03/14/20 13:29 Docusate Sodium (Colace) 100 mg THREE TIMES A DAY ORAL 02/15/20 13:00 03/16/20 12:59 02/20/20 12:03 Lactulose (Cephulac) 30 gm THREE TIMES A DAY ORAL 02/15/20 13:00 03/16/20 12:59 02/20/20 12:03 Lorazepam (Ativan 2mg/ml 1ml) 0.5 mg Q4H PRN IV For Anxiety 02/13/20 13:30 02/20/20 13:29 02/20/20 09:21 Methocarbamol (Robaxin) 500 mg Q8H PRN ORAL muscle spasm 02/19/20 14:30 03/20/20 14:29 Metoclopramide HCl (Reglan) 10 mg Q6H PRN IVP servere nauasea 02/13/20 13:30 03/14/20 13:29 Mineral Oil (Fleet's Mineral Oil Enema) 133 ml EVERY OTHER DAY RECTAL 02/17/20 09:00 03/18/20 08:59 Naloxone HCl (Narcan) 0.1 mg PRN IV Sedation scale 3 or 4 02/19/20 13:30 03/20/20 13:29 Nitroglycerin (Ntg) 0.4 mg Q5M X 3 DOSES PRN SL Prn Chest Pain 02/13/20 13:30 03/14/20 13:29 Ondansetron HCl (Zofran) 4 mg Q6H PRN IVP Nausea & Vomiting 02/13/20 13:30 03/14/20 13:29 Oxycodone/ Acetaminophen (Percocet 10/325) 1 tab Q4H PRN ORAL Severe Pain (Pain Scale 7-10) 02/19/20 14:30 02/26/20 14:29 02/20/20 12:06 Pantoprazole (Protonix) 40 mg ACBREAKFAST ORAL 02/20/20 06:30 03/21/20 06:29 02/20/20 06:37 Piperacillin Sod/ Tazobactam Sod 3.375 gm/Sodium Chloride 110 ml @ 27.5 mls/hr Q8H IVPB 02/14/20 10:00 02/21/20 09:59 02/20/20 09:16 Polyethylene Glycol (Miralax) 17 gm HSPRN PRN ORAL Constipation 02/13/20 13:30 03/14/20 13:29 Pregabalin (Lyrica) 50 mg Q8HR ORAL 02/19/20 15:00 04/04/20 14:59 02/20/20 05:22 Promethazine HCl (Phenergan) 25 mg Q6H PRN IM Refractory N/V 02/13/20 13:30 03/14/20 13:29 Temazepam (Restoril) 15 mg HSPRN PRN ORAL Insomnia 02/13/20 13:30 4/14/20 13:29 02/15/20 22:09 Karla Mendez M.D. Feb 20, 2020 13:27
--- NOTE | 2020-02-20 14:10 | General Progress Note ---
Assessment/Plan Assessment/Plan: (1) Abdominal pain (2) Splenic Rupture (3) Cervical DDD (4) Cervical Spondylosis (5) Cervical Radiculopathy Patient will be continued on Robaxin, Lyrica and Percocet. D/w Dr. Hill and he concurred. Subjective Date patient seen: Feb 20, 2020 Time patient seen: 14:50 - pm Constitutional: Reports: no symptoms HEENT: Reports: no symptoms Cardiovascular: Reports: no symptoms Respiratory: Reports: no symptoms Gastrointestinal/Abdominal: Reports: no symptoms Genitourinary: Reports: no symptoms, urgency Neurologic/Psychiatric: Reports: no symptoms Endocrine: Reports: no symptoms Hematologic/Lymphatic: Reports: no symptoms Allergies: Coded Allergies: IBUPROFEN (Unverified Allergy, Unknown, 02/13/20) ASPIRIN (Verified Adverse Reaction, Mild, ULCERS, 08/16/11) NAPROXEN (Verified Adverse Reaction, Mild, ULCERS, 05/19/12) NSAIDS (NON-STEROIDAL ANTI-INFLAMMA (Verified Adverse Reaction, Mild, ULCERS, 08/16/11) Subjective Patient reports that her pain has reduced to a mild level on the Percocet she has been rule out for the coronavirus. No new complaints at this time. Objective Last 24 Hour Vital Signs Date Time Temp Pulse Resp B/P (MAP) Pulse Ox O2 Delivery O2 Flow Rate FiO2 02/20/20 12:36 99.5 02/20/20 11:51 80 02/20/20 09:00 Room Air Room Air 02/20/20 08:25 100.6 66 18 150/86 (107) 99 02/20/20 07:54 88 02/20/20 04:00 99.7 66 18 145/80 (101) 99 02/20/20 03:41 80 02/20/20 03:29 99.0 02/20/20 00:00 99.7 68 18 131/78 (95) 100 02/19/20 23:30 85 02/19/20 21:00 Room Air Room Air 02/19/20 20:00 72 02/19/20 20:00 100.6 74 20 148/88 (108) 99 02/19/20 16:40 99.9 02/19/20 16:00 100.4 78 18 159/98 (118) 99 02/19/20 15:08 85 Intake and Output 02/19/20 02/20/20 19:00 07:00 Intake Total 600 ml 800 ml Balance 600 ml 800 ml Intake Oral 600 ml 800 ml # Voids 4 3 # Bowel Movements 1 Laboratory Tests 02/20/20 08:05: White Blood Count 9.5, Red Blood Count 3.27L, Hemoglobin 10.3L, Hematocrit 30.9L , Mean Corpuscular Volume 94, Mean Corpuscular Hemoglobin 31.4H, Mean Corpuscular Hemoglobin Concent 33.3, Red Cell Distribution Width 14.5, Platelet Count 490H, Mean Platelet Volume 4.4L, Neutrophils (%) (Auto) 70.8, Lymphocytes (%) (Auto) 11.7L, Monocytes (%) (Auto) 14.8H, Eosinophils (%) (Auto) 1.3, Basophils (%) (Auto) 1.4, Sodium Level 139, Potassium Level 3.6, Chloride Level 101, Carbon Dioxide Level 25, Blood Urea Nitrogen 9, Creatinine 0.9, Estimat Glomerular Filtration Rate > 60, Glucose Level 147H, Calcium Level 8.6 Height (Feet): 5 Height (Inches): 6.00 Weight (Pounds): 180 General Appearance: no apparent distress, alert EENT: PERRL/EOMI, normal ENT inspection Cardiovascular: normal peripheral pulses, normal rate Respiratory/Chest: decreased breath sounds Abdomen: soft, tender Extremities: non-tender Edema: no edema noted Generalized Neurologic: alert, oriented x 3 Skin: warm/dry Lukasz Alexander Feb 20, 2020 14:10
--- NOTE | 2020-02-20 14:39 | NUR ---
NURSE NOTES: pt refused tylenol , pt had 101.8 to 100.8 temp without tylenol. offered tylenol again but still refused
--- NOTE | 2020-02-20 14:46 | NUR ---
NURSE NOTES: per [facility] [id number] report [id number] p/up 1700
[2020-02-20 16:00] VITALS: BP 138/86
--- NOTE | 2020-02-20 17:20 | NUR ---
NURSE NOTES: pt left in stable condition, w all belongings. iv 22g on lfa port capped.
--- NOTE | 2020-02-21 13:44 | NUR ---
*-* INSURANCE *-* NO DISCHARGE SUMMARY IN THE SYSTEM UNABLE TO SEND
--- NOTE | 2020-02-21 13:59 | Discharge Summary ---
Discharge Summary Discharge Summary _ DATE OF ADMISSION: 02/13/2020 DATE OF DISCHARGE: 02/20/2020 DISCHARGED BY: Dr. Richards REASON FOR ADMISSION: 49 years old female with past medical history of gastric bypass, fatty liver, pancreatitis, hypertension, history of ETOH abuse, presented with left-sided abdominal pain. Patient reported dark stools. She also reported recent fever. No cough. No shortness of breath. No congestion. No vomiting. Per patient , she was recently diagnosed with fatty liver, but had no known varices. Upon evaluation patient was tachycardic with heart rate 130 , hypotensive with blood pressure 87/62 , pulse oximetry was stable on room air . CT of the abdomen and pelvis demonstrated markedly abnormal spleen with findings concerning for splenic rupture with large subcapsular hematoma and associated hemoperitoneum. Few small splenic hilar varices noted. Enlarged fatty liver. Previously reported acute pancreatitis changes resolved. Borderline ground-glass opacity in the left costophrenic sulcus. Colonic diverticulosis. No evidence of acute diverticulitis. Laboratory work-up revealed leukocytosis and anemia. Chemistry demonstrated sodium 131, chloride 94. BUN 16, creatinine 1.6. Glucose 240. Total bilirubin 1.9, direct bilirubin 0.8. AST 124, ALT 117. Troponin negative. Lipase 93. Serum test was negative. Serum alcohol was less than 3. Urinalysis revealed no evidence of urinary tract infection. INR 0.9. Surgeon contacted for surgical consult ,and patient admitted for possible splenic rupture . CONSULTANTS: surgery Dr. Cross pulmonary/critical care Dr. Goel ID specialist GI specialist Dr. Elias pain specialist Dr. Hill HOSPITAL COURSE: Patient admitted to telemetry floor and was kept on droplet and contact isolation. Patient was kept n.p.o. and started on empiric antibiotics. Surgeon urgently evaluated patient . Patient was kept n.p.o. and started on IV fluids. Serial abdominal exams were done. Hemoglobin and hematocrit were closely monitored. Pain management was addressed as per pain specialist. Patient was closely monitored. Abdominal exam appeared unchanged. Hemoglobin and hematocrit were closely monitored with goal to keep hemoglobin above 7. Patient undergone transfusion of 2 units of packed red blood cells while in the hospital. Prior to discharge hemoglobin 10.3 , hematocrit 30.9. Hepatitis panel was negative. LFT trended down, and prior to discharge both AST and ALT within normal limits. Surgeon recommended to hold any surgical intervention at this time. Patient slowly started on diet . Supplemental oxygen provided and titrated to keep pulse oximetry above 92%. Nebulizing treatment with bronchodilator provided as needed. Blood culture were negative. COVID-19 was tested twice and came back non-detected x2. Isolation discontinued. Antibiotic stopped. Bowel regimen instituted. GI prophylaxis provided. Patient started on Creon . Patient clinically stabilized and was ready for transfer to [facility] for further management. FINAL DIAGNOSES: Splenic rupture Intractable abdominal pain secondary to splenic rupture Fever -resolved Peptic ulcer disease History of gastric bypass ETOH abuse Fatty liver Elevated LFT Anemia History of pancreatitis Diverticulosis Cervical DDD with cervical radiculopathy DISCHARGE MEDICATIONS: See Medication Reconciliation list. DISCHARGE INSTRUCTIONS: Patient was transferred to [facility] due to insurance for further management. I have been assigned to dictate discharge summary for this account. I was not involved in the patient's management. Aurea Kulkarni NP Feb 21, 2020 13:59
[2020-02-22] MEDS ORDERED: fentaNYL Destruction MISC SCH (14:59)
== END 2020-02-20 17:19 | DRG 663 ==
LOC: EDBD 07:14 → EMR 07:33 → EDBEDREQ 09:39 → 2E 11:17 → EDBEDREQ 17:55
PROC: 30233N1 Transfusion of Nonautologous Red Blood Cells into Peripheral Vein, Percutaneous Approach (ICD-10-PCS; principal; 2020-02-14)
DX: S36.09XA Other injury of spleen, initial encounter (principal); K27.9 Peptic ulcer, site unspecified, unspecified as acute or chronic, without hemorrhage or perforation; K76.0 Fatty (change of) liver, not elsewhere classified; K57.90 Diverticulosis of intestine, part unspecified, without perforation or abscess without bleeding; Z88.6 Allergy status to analgesic agent; I10 Essential (primary) hypertension; X58.XXXA Exposure to other specified factors, initial encounter; K70.9 Alcoholic liver disease, unspecified; D50.0 Iron deficiency anemia secondary to blood loss (chronic); R10.9 Unspecified abdominal pain; Z98.84 Bariatric surgery status; R79.89 Other specified abnormal findings of blood chemistry; M50.10 Cervical disc disorder with radiculopathy, unspecified cervical region; F17.200 Nicotine dependence, unspecified, uncomplicated; N83.209 Unspecified ovarian cyst, unspecified side; F10.20 Alcohol dependence, uncomplicated
CPT/HCPCS: 36415; 71045; 74177; 80048; 80053; 80061; 81003; 82150; 82248; 83036; 83605; 83690; 83735; 83880; 84100; 84443; 84484; 84702; 85007; 85025; 85610; 85651; 85730; 86140; 86705; 86709; 86803; 86850; 86900; 86901; 86920; 87040; 87340; 87635; 93005; 96361; 96374; 96375; 96376; 99285; G0480; J7030